=== PATIENT | male | born 1945 | race Caucasian/White ===

== ENCOUNTER 2017-05-17 00:44 | Emergency (ER) | payer MEDICARE, OTHER ==
[~2017-05-17] VITALS: Ht 193 cm; Wt 88.5 kg
[~2017-05-17 00:44] MED LIST: ASPIRIN81 MG PO; JANUMET 50-1,01 EACH PO; JANUMET 50-5001 EACH PO; METFORMIN HCL500 MG PO; VASOTEC10 MG PO
[2017-05-17] MEDS ORDERED: LIDOCAINE JELLY 2% 10ML URO-JET TOP ONE (01:00)
[2017-05-17 02:09] LABS: BILIRUBIN,URINE NEGATIVE (NEGATIVE); KETONES,URINE NEGATIVE (NEGATIVE); LEUKOCYTE ESTERASE ,URINE 2+ (NEGATIVE); PROTEIN,URINE DIPSTICK NEGATIVE (NEGATIVE); URINE UROBILINOGEN 0.2 mg/dL (0.2 - 1)
[2017-05-17 02:10] LABS: CLARITY,URINE CLOUDY (CLEAR); COLOR,URINE YELLOW (YELLOW); NITRITE,URINE POSITIVE (NEGATIVE)
[2017-05-17 02:19] LABS: BACTERIA,URINE MANY /HPF; EPITHELIAL CELLS,URINE RARE /LPF; WBC,URINE (MAN) 21-50 /HPF (0-5)
[2017-05-17] MEDS ORDERED: CEFTRIAXONE SOD 1 GM VIAL IM ONE (02:30)
[2017-05-17 03:25] VITALS: BP 154/65
== END 2017-05-17 03:26 | disposition home or self-care (01) ==
LOC: ER 00:44
DX: R33.9 Retention of urine, unspecified (principal); N30.91 Cystitis, unspecified with hematuria; N40.1 Benign prostatic hyperplasia with lower urinary tract symptoms; I10 Essential (primary) hypertension; E11.9 Type 2 diabetes mellitus without complications
CPT/HCPCS: 51702; 81001; 87086; 87186; 99284; J0696

== ENCOUNTER 2018-02-27 13:24 | Emergency (ER) | payer MEDICARE, OTHER ==
[~2018-02-27] VITALS: Ht 193 cm; Wt 92.5 kg
[2018-02-27] MEDS ORDERED: ONDANSETRON HCL INJ 2 MG/ML VIAL IV STA (13:44)
[2018-02-27] MEDS ORDERED: SODIUM CHLORIDE 0.9% 1000ML 1,000 ML IV SCH (13:45)
[2018-02-27 14:19] LABS: BASOPHILS # (AUTO) 0.1 (0.0-0.1); BASOPHILS % 0.6 % (0.0-1.0); EOSINOPHILS # (AUTO) 0.1 (0.0-0.4); EOSINOPHILS % 0.7 % (0.0-6.0); HEMATOCRIT 43.8 % (38.2-49.6); HEMOGLOBIN 15.7 g/dL (14.0-18.0); LYMPHOCYTES # (AUTO) 2.1 (1.0-3.2); LYMPHOCYTES % 24.7 % (18.0-39.1); MEAN CORPUSCULAR HEMOGLOBIN 33.5 pg (28-32); MEAN CORPUSCULAR HGB CONC 35.8 g/dL (31-35); MEAN CORPUSCULAR VOLUME 93.4 fL (81-99); MONOCYTES # (AUTO) 1.1 (0.2-0.8); MONOCYTES % 12.6 % (4.4-11.3); NEUTROPHILS # (AUTO) 5.2 (2.1-6.9); PLATELET COUNT 213 x10e3/uL (140-360); RED BLOOD COUNT 4.69 x10e6/uL (4.3-5.7); RED CELL DISTRIBUTION WIDTH 13.5 % (11.7-14.4)
[2018-02-27 14:43] LABS: ALANINE AMINOTRANSFERASE 36 IU/L (0-55); ALBUMIN 4.1 g/dL (3.5-5.0); ALBUMIN/GLOBULIN RATIO 1.2 (0.8-2.0); ALKALINE PHOSPHATASE 44 IU/L (40-150); ANION GAP 18.6 mmol/L (8-16); BLOOD UREA NITROGEN 14 mg/dL (7-26); BUN/CREATININE RATIO 12 (6-25); CARBON DIOXIDE 23 mmol/L (22-29); CHLORIDE 98 mmol/L (98-107); CREATINE KINASE 70 IU/L (30-200); CREATININE, SERUM 1.13 mg/dL (0.72-1.25); EST GLOMERULAR FILTRATION RATE > 60 ML/MIN (60-); GLUCOSE 143 mg/dL (74-118); POTASSIUM 3.6 mmol/L (3.5-5.1); SODIUM 136 mmol/L (136-145)
[2018-02-27 17:15] LABS: CLARITY,URINE SL CLOUDY (CLEAR); COLOR,URINE YELLOW (YELLOW)
[2018-02-27 17:16] LABS: BILIRUBIN,URINE NEGATIVE (NEGATIVE); KETONES,URINE NEGATIVE (NEGATIVE); LEUKOCYTE ESTERASE ,URINE TRACE (NEGATIVE); NITRITE,URINE POSITIVE (NEGATIVE); PROTEIN,URINE DIPSTICK NEGATIVE (NEGATIVE); URINE UROBILINOGEN 0.2 mg/dL (0.2 - 1)
[2018-02-27 17:18] LABS: BACTERIA,URINE MANY /HPF
[2018-02-27] MEDS ORDERED: CEFTRIAXONE SOD 1 GM VIAL IV SCH (17:45)
[2018-02-27 18:28] VITALS: BP 152/82
== END 2018-02-27 18:41 | disposition home or self-care (01) ==
LOC: ER 13:24
DX: R11.2 Nausea with vomiting, unspecified (principal); R19.7 Diarrhea, unspecified; K52.9 Noninfective gastroenteritis and colitis, unspecified; N39.0 Urinary tract infection, site not specified; I10 Essential (primary) hypertension; E11.9 Type 2 diabetes mellitus without complications; H81.09 Meniere's disease, unspecified ear
CPT/HCPCS: 36415; 80053; 81001; 82550; 82553; 84484; 85025; 87086; 87186; 99284; J0696; J2405; J7030

== ENCOUNTER 2018-03-06 03:12 | Emergency (ER) | payer MEDICARE, OTHER ==
[~2018-03-06] VITALS: Ht 193 cm; Wt 92.5 kg
== END 2018-03-06 04:44 | disposition home or self-care (01) ==
LOC: ER 03:12
DX: R33.9 Retention of urine, unspecified (principal); N40.1 Benign prostatic hyperplasia with lower urinary tract symptoms; I10 Essential (primary) hypertension; E11.9 Type 2 diabetes mellitus without complications; N18.9 Chronic kidney disease, unspecified
CPT/HCPCS: 99282

== ENCOUNTER 2018-05-08 07:41 | Emergency (ER) | payer MEDICARE, OTHER ==
[~2018-05-08] VITALS: Ht 193 cm; Wt 95.3 kg
--- NOTE | 2018-05-08 09:30 | NUR ---
SUPRAPUBIC JIMENEZ CATH 14 FR WITH 5CC BALLOON, BALLOON FILLED TO [address] JIMÉNEZ. PT TOLERATED WELL. UA SPECIMEN COLLECTED AND SENT TO LAB ORDERED.
[2018-05-08 10:00] LABS: BILIRUBIN,URINE NEGATIVE (NEGATIVE); CLARITY,URINE CLOUDY (CLEAR); COLOR,URINE YELLOW (YELLOW); KETONES,URINE NEGATIVE (NEGATIVE); LEUKOCYTE ESTERASE ,URINE TRACE (NEGATIVE); NITRITE,URINE POSITIVE (NEGATIVE); PROTEIN,URINE DIPSTICK NEGATIVE (NEGATIVE); URINE UROBILINOGEN 0.2 mg/dL (0.2 - 1)
[2018-05-08 10:14] LABS: AMORPHOUS SEDIMENT,URINE RARE (FEW); BACTERIA,URINE MODERATE /HPF; EPITHELIAL CELLS,URINE RARE /LPF
== END 2018-05-08 10:25 | disposition home or self-care (01) ==
LOC: ER 07:41
DX: Z46.6 Encounter for fitting and adjustment of urinary device (principal); N30.90 Cystitis, unspecified without hematuria; N18.9 Chronic kidney disease, unspecified; I10 Essential (primary) hypertension; E11.9 Type 2 diabetes mellitus without complications; H81.09 Meniere's disease, unspecified ear; H40.9 Unspecified glaucoma
CPT/HCPCS: 81001; 87086; 87186; 99283

== ENCOUNTER 2018-08-15 09:43 | Emergency (ER) | payer MEDICARE, OTHER ==
[~2018-08-15] VITALS: Ht 193 cm; Wt 95.3 kg
--- NOTE | 2018-08-15 11:04 | NUR ---
report to matteo flores
--- NOTE | 2018-08-15 11:20 | NUR ---
Pt's suprapubic site is cleaned and a gauze bandage is applied to the site and is secured with tape without incident.
== END 2018-08-15 11:33 | disposition home or self-care (01) ==
LOC: ER 09:43
DX: Z46.6 Encounter for fitting and adjustment of urinary device (principal); I10 Essential (primary) hypertension; E11.9 Type 2 diabetes mellitus without complications
CPT/HCPCS: 99283

== ENCOUNTER 2018-08-19 22:21 | Emergency (ER) | payer MEDICARE, OTHER ==
[~2018-08-19] VITALS: Ht 193 cm; Wt 95.3 kg
[2018-08-20] MEDS ORDERED: LIDOCAINE JELLY 2% 10ML URO-JET ONE (01:24)
[2018-08-20 06:11] VITALS: BP 157/69
== END 2018-08-20 03:00 | disposition home or self-care (01) ==
LOC: ER 22:21
DX: Z46.6 Encounter for fitting and adjustment of urinary device (principal); Z87.891 Personal history of nicotine dependence
CPT/HCPCS: 99282

== ENCOUNTER 2018-11-30 10:44 | Inpatient (IN) | payer MEDICARE, OTHER ==
[2018-11-24 12:47] LABS: BASOPHILS # (AUTO) 0.1 (0.0-0.1); BASOPHILS % 0.6 % (0.0-1.0); EOSINOPHILS # (AUTO) 0.1 (0.0-0.4); EOSINOPHILS % 1.2 % (0.0-6.0); HEMATOCRIT 39.8 % (38.2-49.6); HEMOGLOBIN 14.3 g/dL (14.0-18.0); LYMPHOCYTES # (AUTO) 2.9 (1.0-3.2); LYMPHOCYTES % 27.1 % (18.0-39.1); MEAN CORPUSCULAR HEMOGLOBIN 32.9 pg (28-32); MEAN CORPUSCULAR HGB CONC 35.9 g/dL (31-35); MEAN CORPUSCULAR VOLUME 91.7 fL (81-99); MONOCYTES # (AUTO) 1.1 (0.2-0.8); MONOCYTES % 10.5 % (4.4-11.3); NEUTROPHILS # (AUTO) 6.5 (2.1-6.9); PLATELET COUNT 211 x10e3/uL (140-360); RED BLOOD COUNT 4.34 x10e6/uL (4.3-5.7); RED CELL DISTRIBUTION WIDTH 13.2 % (11.7-14.4)
[2018-11-24 13:02] LABS: ANION GAP 14.7 mmol/L (8-16); CALCIUM 10.4 mg/dL (8.4-10.2); CREATININE, SERUM 1.48 mg/dL (0.72-1.25); POTASSIUM 4.7 mmol/L (3.5-5.1)
--- NOTE | 2018-11-24 13:43 | Diagnostic Imaging Report ---
EXAMINATION: CHEST 2 VIEWS INDICATION: Preoperative COMPARISON: Chest x-ray of 10/16/2016 FINDINGS: TUBES and LINES: None. LUNGS: The lung volumes are normal. No focal consolidation or pulmonary edema. PLEURA: No pleural effusion or pneumothorax. HEART AND MEDIASTINUM: The cardiomediastinal silhouette is normal in size and contour. BONES AND SOFT TISSUES: No acute fracture or dislocation. UPPER ABDOMEN: No free air under the diaphragm. IMPRESSION: No focal pneumonia or pulmonary edema. Signed by: Sherrell Dumont MD on 11/24/2018 1:39 PM
[~2018-11-30] VITALS: Ht 193 cm; Wt 95.3 kg
[~2018-11-30 10:44] MED LIST changes: +BENICAR20 MG PO; +DOCUSATE SODIU100 MG PO; +LATANOPROST2.5 ML OP; +METOPROLOL SUC100 MG PO; +OMEPRAZOLE40 MG PO; +OXYBUTYNIN CHLOR5 M1 PO; +SIMVASTATIN20 MG PO
[2018-11-30] MEDS ORDERED: PIPER-TAZ 3.375 GM 50 ML ONE (11:05)
[2018-11-30] MEDS ORDERED: VANCOMYCIN 1GM/NS 250 ML 250 ML ONE (11:05)
[2018-11-30] MEDS ORDERED: GENTAMICIN 80MG/NS 100 ML 200 ML IV ONE (11:05)
--- OUTSIDE RECORDS SUMMARY | 2018-11-30 11:21 | XMS REPORT | Clinical Summary ---
Author Author DEIDRE mon.ki [facility] [employer] [facility] Address Unknown Phone Unavailable Care Team Providers Care Outreach Clinician Name Role Phone Pcp, No PCP Unavailable Allergies Comments Active Allergy Reactions Severity Noted Date Sulfa (Sulfonamide Rash Low 11/17/2017 Antibiotics) Medications End Date Status Medication Sig Dispensed Refills Start Date Active SITagliptin-metFORMIN Take 1 tablet 0 (JANUMET) 50-1,000 mg per by mouth 2 tablet (two) times daily with breakfast and dinner. Active enalapril (VASOTEC) 10 MG Take 10 mg by 0 tablet mouth daily. Active aspirin 81 MG EC tablet Take 81 mg by 0 mouth daily. Active fluconazole (DIFLUCAN) Take 200 mg 0 200 MG tablet by mouth daily. Active cefUROXime (CEFTIN) 250 Take 250 mg 0 MG tablet by mouth 2 (two) times daily. 12/07/2017 traMADol (ULTRAM) 50 mg Take 1 tablet 20 tablet 0 tablet (50 mg total) 8 by mouth every 6 (six) hours as needed for Pain for up to 10 days. Max Daily Amount: 200 mg Active Problems Problem Noted Date Other specified causes of urethral stricture 11/27/2017 Urinary retention 11/27/2017 Urethral stricture 11/27/2017 Social History Date Tobacco Use Types Packs/Day Years Used Quit: 2004 Former Smoker Smokeless Tobacco: Never Used Alcohol Use Drinks/Week oz/Week Comments Yes rare Sex Assigned at Date Recorded Not on file Industry Job Start Date Occupation Not on file Not on file Not on file Travel End Travel History Travel Start No recent travel history available. Last Filed Vital Signs Not on file Plan of Treatment Not on file Results Not on fileafter 11/29/2017 Insurance Payer Benefit Subscriber ID Type Phone Address Plan / Group MEDICARE MEDICARE A xxxxxxxxxx Medicare B MCR SUPPLEMENT/INDIVIDUAL GENERIC xxxxxxxxxx [employer] MEDICARE SUPPLEMENT
--- OUTSIDE RECORDS SUMMARY | 2018-11-30 11:22 | XMS REPORT | Continuity of Care Document ---
Author Author [employer] Address Unknown Phone Unavailable Care Team Providers Care Conference Reservationist Name Role Phone [employer] Unavailable Unavailable Problems Problem Status Onset Date Classification Date Reported Comments Source DX: N99.114=POSTPROCEDURAL URETHRAL STRI Active 08/26/2017 [facility] Sepsis due to other specified staphylococcus 08/01/2017 10/30/2017 [facility] Urethral stricture, unspecified 07/26/2017 10/23/2017 [facility] FEVER, N/V Active 07/18/2017 [facility] ACUTE LOWER UTI Active 07/18/2017 [facility] UNK Active 06/24/2017 [facility] Benign prostatic hyperplasia with lower urinary tract symptoms 10/23/2017 [facility] Other obstructive and reflux uropathy 10/23/2017 [facility] Calculus in bladder 10/23/2017 [facility] Chronic prostatitis 10/23/2017 [facility] Essential hypertension 10/23/2017 [facility] Type 2 diabetes mellitus without complications 10/23/2017 [facility] Personal history of nicotine dependence 10/30/2017 [facility] use of aspirin 10/23/2017 [facility] Other nursing home drug therapy 10/23/2017 [facility] Urinary tract infection, site not specified 10/30/2017 [facility] Type 2 diabetes mellitus with diabetic chronic kidney disease 10/30/2017 [facility] Chronic kidney disease, stage 3 10/30/2017 [facility] Benign prostatic hyperplasia without lower urinary tract symptoms 10/30/2017 [facility] Anemia, unspecified 10/30/2017 [facility] Personal history of urinary calculi 10/30/2017 [facility] [employer]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 WASTE: F/P - Black; E - Municipal Trash Bin Inactive 08/29/2017 [facility] Miralax 17 gm, 1 pkt, Route: PO, Drug form: PWDR, ONCE, Dosing Weight 93.182, kg, Start date: 07/24/17 12:25:00 [employer], Stop date: 07/24/17 12:25:00 CSTNotes: Dissolve in 8 oz of water or juice. (Same as: Michelle ax) Inactive 07/24/2017 [facility] vancomycin 1.5 g/150 mL-NaCl 0.9% intravenous solution 1.5 gm, IV, Q12H, # 20 bag, 0 Refill(s) No Longer Active 07/23/2017 [facility] enoxaparin 40 mg/0.4 mL subcutaneous solution 40 mg=0.4 mL, SUB-Q, [id number], # 7 syr, 0 Refill(s) No Longer Active 07/23/2017 [facility] Docusate Sodium 100 MG Oral Capsule [Colace] 100 mg=1 cap, PO, BID, # 20 cap, 0 Refill(s), Pharmacy: [id number] Active 07/23/2017 [facility] Docusate Sodium 100 MG Oral Capsule [Colace] 100 mg, 1 cap, Route: PO, BID, Dosing Weight 93.182, kg, Start date: 07/22/17 17:00:00 [employer], Duration: 30 day, Stop date: 08/21/17 9:00:00 CDT Inactive 07/22/2017 [facility] Docusate Sodium 100 MG Oral Capsule [Colace] 100 mg, 1 cap, Route: PO, Drug form: CAP, BID, Dosing Weight 93.182, kg, Start date: 07/22/17 11:19:00 [employer], Duration: 30 day, Stop date: 08/21/17 9:00:00 CDTNotes: (Same as: Colace) (Do Not Crush) No Longer Active 07/22/2017 [facility] WAIT for vanco trough draw prior to next dose WAIT for vanco trough draw prior to next dose, reminder, Drug form: MISC, Route: MISC, ONCE, 07/21/17 20:30:00 [employer], Stop date: 07/21/17 20:30:00 [employer] Inactive 07/22/2017 [facility] Doxycycline 100 mg, 2 cap, Route: PO, Drug form: CAP, [id number], Dosing Weight 93.182, kg, Start date: 07/21/17 9:00:00 [employer], Duration: 14 day, Stop date: 08/03/17 21:00:00 CDTNotes: (Same as: Vibramycin) No milk/ant acids/iron. Take 1 hour before or 2 hours after dairy products Inactive 07/21/2017 [facility] Lovenox 40 mg, 0.4 mL, Route: SUB-Q, Drug form: INJ, [id number], Dosing Weight 93.182, kg, Start date: 07/20/17 11:00:00 [employer], Duration: 30 day, Stop date: 08/18/17 11:00:00 CDTNotes: (Same as: Lovenox) No Longer Active 07/20/2017 [facility] Finasteride 1mg po daily-Pt's own med Finasteride 1mg po daily-Pt's own med, 1 mg, Drug form: MISC, Route: PO, Daily, 07/20/17 9:00:00 [employer], Duration: 30 day, Stop date: 08/18/17 21:00:00 CDT No Longer Active 07/20/2017 [facility] Flomax 0.4 mg, 1 cap, Route: PO, Drug form: CAP, Daily, Dosing Weight 93.182, kg, Start date: 07/20/17 9:00:00 [employer], Duration: 30 day, Stop date: 08/18/17 9:00:00 CDTNotes: (Same As: Flomax) "Do Not Crush" No Longer Active 07/20/2017 [facility] Vancomycin 1,500 mg, Route: IVPB, [id number], Dosing Weight 93.182, kg, Start date: 07/20/17 9:00:00 [employer], Duration: 7 day, Stop date: 07/26/17 21:00:00 [employer], ABX Indication: BacteremiaNotes: TIME CRITICAL MEDICATION (Same As: Vancocin) Infusion rate 2001 mg: infuse over 2.5 hours For adult patients only: Round to nearest 250 mg per Medical Staff approval MEDICATION WASTE Product Size: 1000 mg Product Wasted: ___ mg No Longer Active 07/20/2017 [facility] Finasteride 1 mg, Route: PO, Drug form: TAB, Daily, Dosing Weight 93.182, kg, Start date: 07/20/17 9:00:00 [employer], Duration: 30 day, Stop date: 08/18/17 9:00:00 CDT No Longer Active 07/20/2017 [facility] enalapril 10 mg, 1 tab, Route: PO, Drug form: TAB, Daily, Dosing Weight 93.182, kg, Start date: 07/20/17 9:00:00 [employer], Duration: 30 day, Stop date: 08/18/17 9:00:00 CDTNotes: (Same as: Vasotec) No Longer Active 07/20/2017 [facility] Levsin SL 0.125 mg, Route: SL, Drug form: TAB, Q4H, Dosing Weight 93.182, kg, PRN Bladder Spasm, Priority: NOW, Start date: 07/19/17 22:34:00 [employer], Duration: 30 day, Stop date: 08/18/17 22:33:00 CDT Inactive 07/20/2017 [facility] enalapril 10 mg, 1 tab, Route: PO, Drug form: TAB, Bedtime, Dosing Weight 93.182, kg, Priority: NOW, Start date: 07/19/17 22:11:00 [employer], Duration: 30 day, Stop date: 08/18/17 21:00:00 CDTNotes: (Same as: Vasotec) No Longer Active 07/20/2017 [facility] latanoprost 1 drp, Route: BOTH EYES, QPM, Drug form: SOLN, Start date: 07/19/17 17:00:00 [employer], Duration: 30 day, Stop date: 08/17/17 21:00:00 CDTNotes: Keep refrigerated. (Same as:Xalatan) Opened bottle may be s tored at room temperature for 6 weeks No Longer Active 07/19/2017 [facility] Rocephin 1 gm, Route: IVP, Drug form: PDR/INJ, Q12H, Dosing Weight 93.182, kg, Start date: 07/19/17 16:00:00 [employer], Duration: 3 day, Stop date: 07/22/17 4:00:00 [employer], ABX Indication: Urinary Tract InfectionNotes: (Same As: Rocephin). Use with 100 mL NS and infuse over 30 min MEDICATION WASTE Product Size: 1000 mg Product Wasted: ___ mg No Longer Active 07/19/2017 [facility] Aspirin 81 mg, 1 tab, Route: PO, Drug form: [place], Daily, Dosing Weight 93.182, kg, Start date: 07/19/17 10:00:00 [employer], Duration: 30 day, Stop date: 08/18/17 9:00:00 CDTNotes: Take with food. No Longer Active 07/19/2017 [facility] Insulin Lispro 1 unit, 0.01 mL, Route: SUB-Q, Drug form: SOLN, TID-Before Meals, Dosing Weight 93.182, kg, PRN Blood Glucose Results, Start date: 07/19/17 9:53:00 [employer], Duration: 30 day, Stop date: 08/18/17 9:52:00 CDTNotes: (Same as: Humalog ) Roll in palms of hands gently; Do not shake `vigorously. "Single Patient Use Only " WASTE: F/P - Black; E - Municipal Trash Bin Stable for 28 days at room temperature. Expires in days from Date No Longer Active 07/19/2017 [facility] Glucagon 1 mg, Route: IM, Drug form: PDR/INJ, PRN, Dosing Weight 93.182, kg, PRN Blood Glucose Results, Start date: 07/19/17 9:53:00 [employer], Duration: 30 day, Stop date: 08/18/17 10:52:00 CDT No Longer Active 07/19/2017 [facility] Dextrose 50% Syringe 25 gm, 50 mL, Route: IVP, Drug Form: INJ, Dosing Weight 93.182, kg, PRN, PRN Blood Glucose Results, Start date: 07/19/17 9:53:00 [employer], Duration: 30 day, Stop date: 08/18/17 10:52:00 CDT No Longer Active 07/19/2017 [facility] Levsin SL 0.125 mg, 1 tab, Route: SL, Drug form: TAB, Q4H, Dosing Weight 93.182, kg, PRN Bladder Spasm, Start date: 07/19/17 9:52:00 [employer], Duration: 30 day, Stop date: 08/18/17 9:51:00 CDTNotes: (Same as: Levsin) Take 30 min before meal No Longer Active 07/19/2017 [facility] tramadol hydrochloride 50 MG Oral Tablet 50 mg, 1 tab, Route: PO, Drug form: TAB, Q4H, Dosing Weight 93.182, kg, PRN Pain Score 1-3, Start date: 07/19/17 5:16:00 [employer], Duration: 30 day, Stop date: 08/18/17 5:15:00 CDTNotes: Not to exceed 400mg/day. (Same As: Ultram) No Longer Active 07/19/2017 [facility] Aspirin 81 mg, PO, Daily, 0 Refill(s) Active 07/19/2017 [facility] Metformin hydrochloride 1000 MG / sitagliptin 50 MG Oral Tablet 1 tab, PO, BID-Meals, # 90 tab, 1 Refill(s) No Longer Active 07/19/2017 [facility] Ondansetron 4 mg, 2 mL, Route: IVP, Drug form: INJ, Q6H, Dosing Weight 93.182, kg, PRN Nausea & Vomiting, Start date: 07/19/17 3:34:00 [employer], Duration: 30 day, Stop date: 08/18/17 3:33:00 CDTNotes: (Same as: Zofran) MEDICATION WASTE Product Size: 4 mg Product Wasted: ___ mg No Longer Active 07/19/2017 [facility] Acetaminophen 325 MG / Hydrocodone Bitartrate 5 MG Oral Tablet 1 tab, Route: PO, Drug Form: TAB, Dosing Weight 93.182, kg, Q4H, PRN Pain Score 4-6, Start date: 07/19/17 3:34:00 [employer], Duration: 30 day, Stop date: 08/18/17 3:33:00 CDTNotes: (Same as: [place] 325/5) Do not exceed 4gm/day of acetaminophen. Inactive 07/19/2017 [facility] Lactated Ringers IV 1,000 mL 1,000 mL, Rate: 75 ml/hr, Infuse over: 13.3 hr, Route: IV, Dosing Weight 93.182 kg, Total Volume: 1,000, Start date: 07/19/17 3:34:00 [employer], Duration: 30 day, Stop date: 08/18/17 3:33:00 CDT, 2.24, m2 No Longer Active 07/19/2017 [facility] Saline Flush 0.9% 10 ml, Route: IVP, Drug Form: INJ, Dosing Weight 93.182, kg, PRN, PRN Line Flush, Start date: 07/19/17 3:34:00 [employer], Duration: 30 day, Stop date: 08/18/17 4:33:00 CDTNotes: (Same as: BD Posiflush) No Longer Active 07/19/2017 [facility] Rocephin 1 gm, Route: IVPB, Drug form: PDR/INJ, ONCE, Dosing Weight 93.182, kg, Priority: STAT, Start date: 07/19/17 2:23:00 [employer], Stop date: 07/19/17 2:23:00 [employer], ABX Indication: Urinary Tract Infection Inactive 07/19/2017 [facility] Saline Flush 0.9% 10 mL, Route: IVP, Drug Form: INJ, Dosing Weight 93.182, kg, PRN, PRN Line Flush, Start date: 07/18/17 21:33:00 [employer], Duration: 30 day, Stop date: 08/17/17 22:32:00 CDTNotes: (Same as: BD Posiflush) No Longer Active 07/19/2017 [facility] Oxycodone Hydrochloride 5 MG Oral Tablet 10 mg, Route: PO, Drug form: TAB, ONCE, Dosing Weight 93.182, kg, PRN Pain Score 7-10, Start date: 07/17/17 15:57:00 [employer] Inactive 07/17/2017 [facility] Fentanyl 25 microgram, Route: IVP, Q5Min, Dosing Weight 93.182, kg, PRN Pain Score 4-6, Priority: Routine, Start date: 07/17/17 15:20:00 [employer], Duration: 4 doses or times, Stop date: Limited # of times Inactive 07/17/2017 [facility] esmolol 10 mg, Route: IVP, Q5Min, Dosing Weight 93.182, kg, PRN Other -See Comment, Start date: 07/17/17 15:20:00 [employer], Duration: 5 doses or times, Stop date: Limited # of times Inactive 07/17/2017 [facility] Hydralazine 10 mg, Route: IVP, Q20Min, Dosing Weight 93.182, kg, PRN Elevated BP, Start date: 07/17/17 15:20:00 [employer], Duration: 2 doses or times, Stop date: Limited # of times Inactive 07/17/2017 [facility] Labetalol 10 mg, Route: IVP, Q5Min, Dosing Weight 93.182, kg, PRN Elevated BP, Start date: 07/17/17 15:20:00 [employer], Duration: 5 doses or times, Stop date: Limited # of times Inactive 07/17/2017 [facility] Meperidine 12.5 mg, Route: IVP, Q30Min, Dosing Weight 93.182, kg, PRN Other -See Comment, For shivering, Start date: 07/17/17 15:20:00 [employer], Duration: 2 doses or times, Stop date: Limited # of times Inactive 07/17/2017 [facility] Ondansetron 4 mg, Route: IVP, ONCE, Dosing Weight 93.182, kg, PRN Nausea & Vomiting, Start date: 07/17/17 15:20:00 [employer] Inactive 07/17/2017 [facility] Promethazine 6.25 mg, Route: IVPB, ONCE, Dosing Weight 93.182, kg, PRN Nausea & Vomiting, Start date: 07/17/17 15:20:00 [employer] Inactive 07/17/2017 [facility] Flumazenil 0.2 mg, Route: IVP, PRN, Dosing Weight 93.182, kg, PRN Benzodiazepine Reversal, Initial dose, Start date: 07/17/17 15:20:00 [employer], Duration: 30 day, Stop date: 08/16/17 16:19:00 CDT Inactive 07/17/2017 [facility] Naloxone 0.4 mg, Route: IVP, Q2MIN, Dosing Weight 93.182, kg, PRN Narcotic Reversal, Start date: 07/17/17 15:20:00 [employer], Duration: 8 doses or times, Stop date: Limited # of times Inactive 07/17/2017 [facility] Albuterol 0.83 MG/ML Inhalant Solution 2.49 mg, Route: NEB, Q20Min, Dosing Weight 93.182, kg, PRN Wheezing, Priority: STAT, Start date: 07/17/17 15:20:00 [employer], Duration: 30 day, Stop date: 08/16/17 16:19:00 CDT Inactive 07/17/2017 [facility] Diphenhydramine 12.5 mg, Route: IVP, Drug form: INJ, Q6H, Dosing Weight 93.182, kg, PRN Itching, Start date: 07/17/17 15:20:00 [employer], Duration: 30 day, Stop date: 08/16/17 15:19:00 CDT Inactive 07/17/2017 [facility] Calcium Chloride 0.0014 MEQ/ML / Potassium Chloride 0.004 MEQ/ML / Sodium Chloride 0.103 MEQ/ML / Sodium Lactate 0.028 MEQ/ML Injectable Solution 1,000 mL, Rate: 125 ml/hr, Infuse over: 8 hr, Route: IV, Dosing Weight 93.182 kg, Total Volume: 1,000, Start date: 07/17/17 15:20:00 [employer], Duration: 30 day, Stop date: 08/16/17 15:19:00 CDT, 2.24, m2 Inactive 07/17/2017 [facility] ondansetron (ANES) Route: IV, Drug form: INJ, ONCE, Stop date: 07/17/17 15:04:00 [employer] Inactive 07/17/2017 [facility] fentaNYL (ANES) Route: IV, Drug form: INJ, ONCE, Stop date: 07/17/17 14:38:00 [employer] Inactive 07/17/2017 [facility] lidocaine (ANES) Route: IV, Drug form: INJ, ONCE, Stop date: 07/17/17 14:38:00 [employer] Inactive 07/17/2017 [facility] propofol (ANES) Route: IV, Drug form: INJ, ONCE, Stop date: 07/17/17 14:38:00 [employer] Inactive 07/17/2017 [facility] ciprofloxacin (ANES) Route: IV, Drug form: INJ, ONCE, Stop date: 07/17/17 14:38:00 [employer] Inactive 07/17/2017 [facility] Lactated Ringers Injection IV (ANES) 1000 mL Route: IV, Total Volume: 1,000, Start date: 07/17/17 13:44:00 [employer], Stop date: 07/17/17 14:44:00 [employer] Inactive 07/17/2017 [facility] Hyoscyamine Sulfate 0.125 MG Sublingual Tablet [Levsin] 0.125 mg=1 tab, SL, Q4H, PRN Bladder Spasm, # 40 tab, 1 Refill(s) Active 07/17/2017 [facility] tramadol hydrochloride 50 MG Oral Tablet 50 mg=1 tab, PO, Q8H, PRN Pain, X 20 day, # 30 tab, 0 Refill(s) No Longer Active 07/17/2017 [facility] Ciprofloxacin 500 MG Oral Tablet [Cipro] 500 mg=1 tab, PO, Q12H, for UTI, X 3 day, # 6 tab, 0 Refill(s) No Longer Active 07/17/2017 [facility] Albuterol 0.833 MG/ML / Ipratropium [place] 0.167 MG/ML Inhalant Solution 3 mL, Route: NEB, Drug Form: SOLN, Dosing Weight 93.182, kg, ONCE, STAT, Start date: 07/17/17 9:20:00 [employer], Stop date: 07/17/17 9:20:00 CSTNotes: (Same as: Erikab) No Longer Active 07/17/2017 [facility] Calcium Chloride 0.0014 MEQ/ML / Potassium Chloride 0.004 MEQ/ML / Sodium Chloride 0.103 MEQ/ML / Sodium Lactate 0.028 MEQ/ML Injectable Solution 1,000 mL, Rate: 25 ml/hr, Infuse over: 40 hr, Route: IV, Dosing Weight 93.182 kg, Total Volume: 1,000, Start date: 07/17/17 9:20:00 [employer], Duration: 30 day, Stop date: 08/16/17 9:19:00 CDT, 2.24, m2 Inactive 07/17/2017 [facility] latanoprost 1 drp, QPM, 0 Refill(s) Active 07/09/2017 [facility] Aspirin 81 MG Enteric Coated Tablet 81 mg=1 tab, PO, Daily, last dose 07/09/17, # 90 tab, 3 Refill(s) No Longer Active 07/09/2017 [facility] finasteride 1 mg oral tablet 1 mg=1 tab, PO, Daily, # 30 tab, 0 Refill(s) Active 07/09/2017 [facility] Tamsulosin hydrochloride 0.4 MG Oral Capsule [Flomax] 0.4 mg=1 cap, PO, Daily, # 30 cap, 0 Refill(s) Active 07/09/2017 [facility] enalapril 10 mg oral tablet 10 mg=1 tab, PO, Daily, # 30 tab, 0 Refill(s) Active 07/09/2017 [facility] 24 HR Metformin hydrochloride 1000 MG / sitagliptin 100 MG Extended Release Tablet [Janumet 100/1000] 1 tab, PO, BID, # 30 tab, 0 Refill(s) Active 07/09/2017 [facility] Allergies, Adverse Reactions, Alerts Substance Category Reaction Severity Reaction type Status Date Reported Comments Source sulfa drugs Assertion Drug allergy Active [facility] Immunizations No Data Provided for This Section Results Order Name Results Value Reference Range Date Interpretation Comments Source TOXICOLOGY Vanco Tr TND 21:00 07/22/2017 [facility] TOXICOLOGY Vanco Tr 13.3 07/22/2017 [facility] ELECTROLYTES AGAP 13.3 10.0 - 20.0 07/21/2017 [facility] ELECTROLYTES Calcium Lvl 8.4 8.5 - 10.5 07/21/2017 [facility] ELECTROLYTES Potassium Lvl 4.3 3.5 - 5.1 07/21/2017 [facility] ELECTROLYTES Sodium Lvl 136 135 - 145 07/21/2017 [facility] ELECTROLYTES Creatinine Lvl 1.04 0.50 - 1.40 07/21/2017 [facility] ELECTROLYTES CO2 27 24 - 32 07/21/2017 [facility] ELECTROLYTES Chloride Lvl 100 95 - 109 07/21/2017 [facility] ELECTROLYTES eGFR 73 07/21/2017 Result Comment: The eGFR is calculated using the CKD-EPI formula. In most young, healthy individuals the eGFR will be >90 mL/min/1.73m2. The eGFR declines with age. An eGFR of 60-89 may be normal in some populations, particularly the elderly, for whom the CKD-EPI formula has not been extensively validated. Use of the eGFR is not recommended in the following populations:

Individuals with unstable creatinine concentrations, including patients and those with serious co-morbid conditions.

Patients with extremes in muscle mass or diet.

The data above are obtained from the National Kidney Disease Education Program (NKDEP) which additionally recommends that when the eGFR is used in patients with extremes of body mass index for purposes of drug dosing, the eGFR should be multiplied by the estimated BMI. [facility] ELECTROLYTES BUN 12 7 - 22 07/21/2017 [facility] ELECTROLYTES Glucose Lvl 151 70 - 99 07/21/2017 [facility] Platelet 176 133 - 450 07/21/2017 [facility] MPV 8.3 7.4 - 10.4 07/21/2017 [facility] MCHC 34.9 32.0 - 36.0 07/21/2017 [facility] MCH 32.7 27.0 - 31.0 07/21/2017 [facility] RDW 13.3 11.5 - 14.5 07/21/2017 [facility] Hct 37.7 42.0 - 54.0 07/21/2017 [facility] WBC 11.4 3.7 - 10.4 07/21/2017 [facility] Hgb 13.2 14.0 - 18.0 07/21/2017 [facility] MCV 93.6 80.0 - 94.0 07/21/2017 [facility] RBC 4.03 4.70 - 6.10 07/21/2017 [facility] Monocytes # 1.8 0.0 - 0.8 07/21/2017 [facility] Lymphocytes # 2.1 1.0 - 5.5 07/21/2017 [facility] Eosinophils # 0.2 0.0 - 0.5 07/21/2017 [facility] Basophils # 0.1 0.0 - 0.2 07/21/2017 [facility] Segs 63.9 45.0 - 75.0 07/21/2017 [facility] Monocytes 15.7 2.0 - 12.0 07/21/2017 [facility] Lymphocytes 18.6 20.0 - 40.0 07/21/2017 [facility] Eosinophils 1.3 0.0 - 4.0 07/21/2017 [facility] Basophils 0.5 0.0 - 1.0 07/21/2017 [facility] Segs-Bands # 7.3 1.5 - 8.1 07/21/2017 [facility] CHEM PANEL Lactic Acid Lvl 1.1 0.5 - 2.2 07/20/2017 [facility] CHEM PANEL eGFR 70 07/20/2017 Result Comment: The eGFR is calculated using the CKD-EPI formula. In most young, healthy individuals the eGFR will be >90 mL/min/1.73m2. The eGFR declines with age. An eGFR of 60-89 may be normal in some populations, particularly the elderly, for whom the CKD-EPI formula has not been extensively validated. Use of the eGFR is not recommended in the following populations:

Individuals with unstable creatinine concentrations, including patients and those with serious co-morbid conditions.

Patients with extremes in muscle mass or diet.

The data above are obtained from the National Kidney Disease Education Program (NKDEP) which additionally recommends that when the eGFR is used in patients with extremes of body mass index for purposes of drug dosing, the eGFR should be multiplied by the estimated BMI. [facility] CHEM PANEL Creatinine Lvl 1.08 0.50 - 1.40 07/20/2017 [facility] CHEM PANEL Sodium Lvl 135 135 - 145 07/20/2017 [facility] CHEM PANEL Potassium Lvl 4.2 3.5 - 5.1 07/20/2017 [facility] CHEM PANEL BUN 10 7 - 22 07/20/2017 [facility] CHEM PANEL Glucose Lvl 154 70 - 99 07/20/2017 [facility] CHEM PANEL Calcium Lvl 8.6 8.5 - 10.5 07/20/2017 [facility] CHEM PANEL CO2 25 24 - 32 07/20/2017 [facility] CHEM PANEL Chloride Lvl 100 95 - 109 07/20/2017 [facility] CHEM PANEL AGAP 14.2 10.0 - 20.0 07/20/2017 [facility] HEMATOLOGY Eosinophils 0.6 0.0 - 4.0 07/20/2017 [facility] HEMATOLOGY Monocytes 14.0 2.0 - 12.0 07/20/2017 [facility] HEMATOLOGY Lymphocytes 14.2 20.0 - 40.0 07/20/2017 [facility] HEMATOLOGY Monocytes # 1.8 0.0 - 0.8 07/20/2017 [facility] HEMATOLOGY Eosinophils # 0.1 0.0 - 0.5 07/20/2017 [facility] HEMATOLOGY Segs 70.9 45.0 - 75.0 07/20/2017 [facility] Lymphocytes # 1.8 1.0 - 5.5 07/20/2017 [facility] Segs-Bands # 9.1 1.5 - 8.1 07/20/2017 [facility] HEMATOLOGY Basophils 0.3 0.0 - 1.0 07/20/2017 [facility] MCHC 35.0 32.0 - 36.0 07/20/2017 [facility] MCH 32.9 27.0 - 31.0 07/20/2017 [facility] HEMATOLOGY RDW 13.9 11.5 - 14.5 07/20/2017 [facility] MCV 94.1 80.0 - 94.0 07/20/2017 [facility] WBC 12.8 3.7 - 10.4 07/20/2017 [facility] Hgb 13.6 14.0 - 18.0 07/20/2017 [facility] RBC 4.12 4.70 - 6.10 07/20/2017 [facility] MPV 8.4 7.4 - 10.4 07/20/2017 [facility] Platelet 161 133 - 450 07/20/2017 [facility] Hct 38.8 42.0 - 54.0 07/20/2017 [facility] CHEM PANEL eGFR 58 07/19/2017 Result Comment: The eGFR is calculated using the CKD-EPI formula. In most young, healthy individuals the eGFR will be >90 mL/min/1.73m2. The eGFR declines with age. An eGFR of 60-89 may be normal in some populations, particularly the elderly, for whom the CKD-EPI formula has not been extensively validated. Use of the eGFR is not recommended in the following populations:

Individuals with unstable creatinine concentrations, including patients and those with serious co-morbid conditions.

Patients with extremes in muscle mass or diet.

The data above are obtained from the National Kidney Disease Education Program (NKDEP) which additionally recommends that when the eGFR is used in patients with extremes of body mass index for purposes of drug dosing, the eGFR should be multiplied by the estimated BMI. [facility] CHEM PANEL Calcium Lvl 8.6 8.5 - 10.5 07/19/2017 [facility] CHEM PANEL CO2 24 24 - 32 07/19/2017 [facility] CHEM PANEL Chloride Lvl 97 95 - 109 07/19/2017 [facility] CHEM PANEL Potassium Lvl 3.7 3.5 - 5.1 07/19/2017 [facility] CHEM PANEL Sodium Lvl 133 135 - 145 07/19/2017 [facility] CHEM PANEL BUN 13 7 - 22 07/19/2017 [facility] CHEM PANEL Glucose Lvl 193 70 - 99 07/19/2017 [facility] CHEM PANEL Creatinine Lvl 1.26 0.50 - 1.40 07/19/2017 [facility] CHEM PANEL AGAP 15.7 10.0 - 20.0 07/19/2017 [facility] Platelet 160 133 - 450 07/19/2017 [facility] MPV 7.9 7.4 - 10.4 07/19/2017 [facility] RDW 13.3 11.5 - 14.5 07/19/2017 [facility] WBC 13.6 3.7 - 10.4 07/19/2017 [facility] MCV 93.0 80.0 - 94.0 07/19/2017 [facility] MCHC 35.1 32.0 - 36.0 07/19/2017 [facility] RBC 4.06 4.70 - 6.10 07/19/2017 [facility] Hgb 13.2 14.0 - 18.0 07/19/2017 [facility] Hct 37.7 42.0 - 54.0 07/19/2017 [facility] MCH 32.7 27.0 - 31.0 07/19/2017 [facility] Eosinophils 0.5 0.0 - 4.0 07/19/2017 [facility] Basophils 0.5 0.0 - 1.0 07/19/2017 [facility] Segs 75.6 45.0 - 75.0 07/19/2017 [facility] Lymphocytes 9.4 20.0 - 40.0 07/19/2017 [facility] Monocytes 14.0 2.0 - 12.0 07/19/2017 [facility] Eosinophils # 0.1 0.0 - 0.5 07/19/2017 [facility] Basophils # 0.1 0.0 - 0.2 07/19/2017 [facility] Segs-Bands # 10.3 1.5 - 8.1 07/19/2017 [facility] Lymphocytes # 1.3 1.0 - 5.5 07/19/2017 [facility] Monocytes # 1.9 0.0 - 0.8 07/19/2017 [facility] CHEM PANEL Lactic Acid Lvl 2.1 0.5 - 2.2 07/19/2017 [facility] URINE AND STOOL UA Urobilinogen <=1.0 mg/dL 0.1 - 1.0 07/19/2017 [facility] URINE AND STOOL UA Protein 100 mg/dL Negative mg/dL 07/19/2017 [facility] URINE AND STOOL UA pH 5.0 5.0 - 8.0 07/19/2017 [facility] URINE AND STOOL UA Turbidity Marked *ABN* (07/18/17 9:57 PM) Clear 07/19/2017 [facility] URINE AND STOOL UA Spec Grav 1.013 <=1.030 07/19/2017 [facility] URINE AND STOOL UA Bacteria Few /HPF None Seen /HPF 07/19/2017 [facility] URINE AND STOOL UA Mucus Few /LPF None Seen /LPF 07/19/2017 [facility] URINE AND STOOL UA RBC 163 0 - 2 07/19/2017 [facility] URINE AND STOOL UA Sq Epi Occasional /LPF Few /LPF 07/19/2017 [facility] URINE AND STOOL UA WBC 151 0 - 5 07/19/2017 [facility] URINE AND STOOL UA Bili Negative *NA* (07/18/17 9:57 PM) Negative 07/19/2017 [facility] URINE AND STOOL UA Ketones Trace mg/dL Negative mg/dL 07/19/2017 [facility] URINE AND STOOL UA Color Yellow *NA* (07/18/17 9:57 PM) Yellow 07/19/2017 [facility] URINE AND STOOL UA Blood Large *ABN* (07/18/17 9:57 PM) Negative 07/19/2017 [facility] URINE AND STOOL UA Nitrite Negative (07/18/17 9:57 PM) Negative 07/19/2017 [facility] URINE AND STOOL UA Leuk Est Large *ABN* (07/18/17 9:57 PM) Negative 07/19/2017 [facility] URINE AND STOOL UA Glucose 500 mg/dL Negative mg/dL 07/19/2017 [facility] CARDIAC ENZYMES Total CK 102 12 - 191 07/19/2017 [facility] CARDIAC ENZYMES Troponin-I <0.02 0.00 - 0.40 07/19/2017 [facility] CHEM PANEL Total Protein 7.4 6.4 - 8.4 07/19/2017 [facility] CHEM PANEL Albumin Lvl 3.9 3.5 - 5.0 07/19/2017 [facility] CHEM PANEL Alk Phos 49 39 - 136 07/19/2017 [facility] CHEM PANEL Bili Total 1.2 0.2 - 1.3 07/19/2017 [facility] CHEM PANEL ALT 28 0 - 65 07/19/2017 [facility] CHEM PANEL AST 15 0 - 37 07/19/2017 [facility] CHEM PANEL B/C Ratio 10 6 - 25 07/19/2017 [facility] CHEM PANEL A/G Ratio 1.1 0.7 - 1.6 07/19/2017 [facility] CHEM PANEL Globulin 3.5 2.7 - 4.2 07/19/2017 [facility] CHEM PANEL Lactic Acid Lvl 3.9 0.5 - 2.2 07/19/2017 [facility] CHEM PANEL Procalcitonin Lvl 0.14 0.00 - 0.10 07/19/2017 [facility] HEMATOLOGY INR 1.22 0.85 - 1.17 07/19/2017 [facility] HEMATOLOGY PT 15.5 12.0 - 14.7 07/19/2017 [facility] HEMATOLOGY PTT 32.1 22.9 - 35.8 07/19/2017 [facility] [place] Vancomycin Resistance Not Detected (07/18/17 9:54 PM) Not Detected 07/19/2017 [facility] S. anginosus grp Not Detected (07/18/17 9:54 PM) Not Detected 07/19/2017 [facility] DIAGNOSTIC S. lugdunensis Not Detected (07/18/17 9:54 PM) Not Detected 07/19/2017 [facility] DIAGNOSTIC E. faecalis Not Detected (07/18/17 9:54 PM) Not Detected 07/19/2017 [facility] DIAGNOSTIC S. pneumoniae Not Detected (07/18/17 9:54 PM) Not Detected 07/19/2017 [facility] S. agalactiae Not Detected (07/18/17 9:54 PM) Not Detected 07/19/2017 [facility] S. epidermidis Detected *ABN* (07/18/17 9:54 PM) Not Detected 07/19/2017 [facility] DIAGNOSTIC mecA Methicillin Resistance Not Detected (07/18/17 9:54 PM) Not Detected 07/19/2017 [facility] DIAGNOSTIC Listeria spp. Not Detected (07/18/17 9:54 PM) Not Detected 07/19/2017 [facility] DIAGNOSTIC E. faecium Not Detected (07/18/17 9:54 PM) Not Detected 07/19/2017 [facility] DIAGNOSTIC vanB Vancomycin Resistance Not Detected (07/18/17 9:54 PM) Not Detected 07/19/2017 [facility] DIAGNOSTIC S. pyogenes Not Detected (07/18/17 9:54 PM) Not Detected 07/19/2017 [facility] MOLECULAR DIAGNOSTIC Streptococcus spp. Not Detected (07/18/17 9:54 PM) Not Detected 07/19/2017 [facility] DIAGNOSTIC Staphylococcus spp. Detected *ABN* (07/18/17 9:54 PM) Not Detected 07/19/2017 [facility] MOLECULAR DIAGNOSTIC S. aureus Not Detected (07/18/17 9:54 PM) Not Detected 07/19/2017 [facility] ELECTROLYTES AGAP 12.1 10.0 - 20.0 07/09/2017 [facility] ELECTROLYTES eGFR 50 07/09/2017 Result Comment: The eGFR is calculated using the CKD-EPI formula. In most young, healthy individuals the eGFR will be >90 mL/min/1.73m2. The eGFR declines with age. An eGFR of 60-89 may be normal in some populations, particularly the elderly, for whom the CKD-EPI formula has not been extensively validated. Use of the eGFR is not recommended in the following populations:

Individuals with unstable creatinine concentrations, including patients and those with serious co-morbid conditions.

Patients with extremes in muscle mass or diet.

The data above are obtained from the National Kidney Disease Education Program (NKDEP) which additionally recommends that when the eGFR is used in patients with extremes of body mass index for purposes of drug dosing, the eGFR should be multiplied by the estimated BMI. [facility] ELECTROLYTES CO2 25 24 - 32 07/09/2017 [facility] ELECTROLYTES Calcium Lvl 9.4 8.5 - 10.5 07/09/2017 [facility] ELECTROLYTES BUN 17 7 - 22 07/09/2017 [facility] ELECTROLYTES Sodium Lvl 135 135 - 145 07/09/2017 [facility] ELECTROLYTES Creatinine Lvl 1.42 0.50 - 1.40 07/09/2017 [facility] ELECTROLYTES Glucose Lvl 205 70 - 99 07/09/2017 [facility] ELECTROLYTES Potassium Lvl 4.1 3.5 - 5.1 07/09/2017 [facility] ELECTROLYTES Chloride Lvl 102 95 - 109 07/09/2017 [facility] HEMATOLOGY Monocytes # 1.0 0.0 - 0.8 07/09/2017 [facility] HEMATOLOGY Lymphocytes # 1.8 1.0 - 5.5 07/09/2017 [facility] HEMATOLOGY Eosinophils 0.7 0.0 - 4.0 07/09/2017 [facility] HEMATOLOGY Basophils 0.2 0.0 - 1.0 07/09/2017 [facility] HEMATOLOGY Segs-Bands # 7.4 1.5 - 8.1 07/09/2017 [facility] HEMATOLOGY Eosinophils # 0.1 0.0 - 0.5 07/09/2017 [facility] HEMATOLOGY Segs 72.0 45.0 - 75.0 07/09/2017 [facility] HEMATOLOGY Monocytes 9.8 2.0 - 12.0 07/09/2017 [facility] HEMATOLOGY Lymphocytes 17.3 20.0 - 40.0 07/09/2017 [facility] HEMATOLOGY PTT 30.1 22.9 - 35.8 07/09/2017 [facility] PT 12.4 12.0 - 14.7 07/09/2017 [facility] INR 0.92 0.85 - 1.17 07/09/2017 [facility] MCH 32.9 27.0 - 31.0 07/09/2017 [facility] RDW 13.9 11.5 - 14.5 07/09/2017 [facility] Platelet 239 133 - 450 07/09/2017 [facility] MCHC 34.9 32.0 - 36.0 07/09/2017 [facility] MPV 8.7 7.4 - 10.4 07/09/2017 [facility] Hct 47.1 42.0 - 54.0 07/09/2017 [facility] MCV 94.1 80.0 - 94.0 07/09/2017 [facility] Hgb 16.4 14.0 - 18.0 07/09/2017 [facility] WBC 10.2 3.7 - 10.4 07/09/2017 [facility] RBC 5.00 4.70 - 6.10 07/09/2017 [facility] URINE AND STOOL UA Nitrite Negative (07/09/17 4:22 PM) Negative 07/09/2017 [facility] URINE AND STOOL UA Color Ltyellow 07/09/2017 [facility] URINE AND STOOL UA Urobilinogen <=1.0 mg/dL 0.1 - 1.0 07/09/2017 [facility] URINE AND STOOL UA WBC 3 0 - 5 07/09/2017 [facility] URINE AND STOOL UA RBC 3 0 - 2 07/09/2017 [facility] URINE AND STOOL UA Sq Epi Occasional /LPF Few /LPF 07/09/2017 [facility] URINE AND STOOL UA Leuk Est Trace *ABN* (07/09/17 4:22 PM) Negative 07/09/2017 [facility] URINE AND STOOL UA Protein Negative mg/dL Negative mg/dL 07/09/2017 [facility] URINE AND STOOL UA Glucose 500 mg/dL Negative mg/dL 07/09/2017 [facility] URINE AND STOOL UA Bili Negative *NA* (07/09/17 4:22 PM) Negative 07/09/2017 [facility] URINE AND STOOL UA Blood Small *ABN* (07/09/17 4:22 PM) Negative 07/09/2017 [facility] URINE AND STOOL UA pH 5.0 5.0 - 8.0 07/09/2017 [facility] URINE AND STOOL UA Turbidity Clear (07/09/17 4:22 PM) Clear 07/09/2017 [facility] URINE AND STOOL UA Spec Grav 1.010 <=1.030 07/09/2017 [facility] URINE AND STOOL UA Ketones Negative mg/dL Negative mg/dL 07/09/2017 [facility] Pathology Reports No Data Provided for This Section Diagnostic Reports Report Value Date Source Urethrogram retrograde DX Patient Name: JUVENCIO ZHOU : 1945; Age: 71 years Male MR: [id number] Study: Urethrogram retrograde DX 08/29/2017 9:59 AM CDT Clinical Indication: - N99.114 Postprocedural urethral stricture, male, unspecified. Total DLP: 93 mGy, 1,642.6 uGym2. IV contrast: 10 cc Omnipaque 300 Fluoroscopy time: 2 minutes 5 seconds COMPARISON: None TECHNIQUE: The patient arrived in the radiology suite with a Cavazos catheter in place. Small caliber Cavazos catheter was inserted into the tip of the penis at which point the balloon was slightly inflated. The patient was asked to pinch the tip of the penis around the 2 catheters. Contrast was hand injected via a syringe. FINDINGS: There is slight dilation of the distal urethra/sec to the level of the mid urethra. There is a slightly lobulated contour of the distal urethral border. At this point contrast progressed along the lateral aspects of the Cavazos catheter into the bladder. There is no evidence of contrast extravasation. No filling defects are identified. IMPRESSION: 1. No evidence of contrast extravasation with passage of contrast into the bladder. 2. Slight dilation and contour lobulation of the mid to distal urethra. SL: [id number] 08/29/2017 [facility] Chest 1 v for Placement DX XR CHEST 1 VIEW HISTORY: Line Placement - Chest 1 view for line placement. COMPARISON: None. FINDINGS: The right lung is clear. Linear scar or atelectasis noted within the left base. The heart and vascular markings are normal. No pleural abnormality. The bones are intact. PICC line on the right, tip located over the SVC. IMPRESSION: 1. Right upper extremity PICC line positioned over the lower 3rd of the SVC. 2. Linear scar or atelectasis within the left base.. SL: [id number] 07/22/2017 [facility] Chest 1view DX Clinical Indication: Undifferentiated Sepsis Comparison: None FINDINGS: The frontal chest radiograph shows normal lung volumes without interstitial or airspace opacities, pleural effusions or pneumothorax. The cardiomediastinal contours are normal for the age of the patient with aortic tortuosity. There are degenerative changes in the spine and shoulders. IMPRESSION: No chest radiographic evidence of acute cardiopulmonary disease. SL: [id number] 07/18/2017 [facility] Consultation Notes No Data Provided for This Section Discharge Summaries No Data Provided for This Section History and Physicals No Data Provided for This Section Vital Signs Vital Sign Value Date Comments Source Systolic (mm Hg) 120 07/24/2017 [facility] Diastolic (mm Hg) 71 07/24/2017 [facility] Temperature Oral (F) 97.9 F 07/24/2017 [facility] Respitory Rate 18 07/24/2017 [facility] Heart Rate 99 07/24/2017 [facility] Heart Rate 81 07/24/2017 [facility] Systolic (mm Hg) 121 07/24/2017 [facility] Diastolic (mm Hg) 71 07/24/2017 [facility] Temperature Oral (F) 98.2 F 07/24/2017 [facility] Systolic (mm Hg) 116 07/24/2017 [facility] Diastolic (mm Hg) 70 07/24/2017 [facility] Temperature Oral (F) 98.2 F 07/24/2017 [facility] Heart Rate 74 07/24/2017 [facility] Respitory Rate 16 07/24/2017 [facility] Respitory Rate 16 07/24/2017 [facility] Height 193.04 cm 07/19/2017 [facility] Height 193.04 cm 07/19/2017 [facility] BMI Calculated 25.01 07/19/2017 [facility] Weight 93.182 07/19/2017 [facility] Systolic (mm Hg) 157 07/17/2017 [facility] Diastolic (mm Hg) 77 07/17/2017 [facility] Respitory Rate 16 07/17/2017 [facility] Systolic (mm Hg) 141 07/17/2017 [facility] Diastolic (mm Hg) 96 07/17/2017 [facility] Respitory Rate 14 07/17/2017 [facility] Systolic (mm Hg) 139 07/17/2017 [facility] Diastolic (mm Hg) 87 07/17/2017 [facility] Respitory Rate 13 07/17/2017 [facility] Heart Rate 94 07/17/2017 [facility] Temperature Oral (F) 98.1 F 07/09/2017 [facility] Heart Rate 109 07/09/2017 [facility] Weight 93.182 07/09/2017 [facility] BMI Calculated 25.01 07/09/2017 [facility] Height 193.04 cm 07/09/2017 [facility] Encounters Location Location Details Encounter Type Encounter Number Reason For Visit Attending Provider ADM Date DC Date Status Source [facility] Day Surgery [id number] [facility] 07/17/2017 07/17/2017 [facility] Inpatient [id number] [place] Bradley 07/19/2017 07/24/2017 [facility] Outpatient [id number] [facility] 08/29/2017 08/30/2017 [facility] Procedures Procedure Code Date Perfomer Comments Source Achilles tendon repair [id number] [facility] Cataract extraction, insertion of intraocular lens and trabeculectomy [id number] [facility] Assessment and Plan Assessment and Plan Date Source Extracted from:Title: Clinical Document Author: Gallo Kan MD Date: 07/23/17 INFECTIOUS DISEASES PROGRESS NOTE GALLO KAN M.D. REASON FOR ID FOLLOW UP: ASSESMENT: This is a 67-year-old male presenting with Coagulase-negative staph bacteremia Fever Leukocytosis Anemia BPH Status post TURP PLAN: await DC At this point patient with a high-grade cordless negative staph bacteremia would require IV antibiotic vancomycin 10-14 days PICC line placement repeat cultures if negative home on IV vancomycin to complete the course case is discussed with patient is agreeable for treatment plan will follow in outpatient clinic to make further recommendations thanks for involving us the care ANTIBIOTICS: vanco day 08/30 ID follow up on discharge call Dr Kan [phone] SUBJECTIVE: Seen and examined. Events noted. VITAL SIGNS: Vitals and Temp: Vitals Tmp(F) Pulse BP RR SpO2 FIO2 07/22 08:15 97.6 77 127/79 16 97 --- 07/22 04:36 98.2 79 119/72 16 98 --- 07/22 00:29 98.5 83 136/78 16 97 --- 03 19:45 98.3 88 122/81 16 98 --- 03 16:42 98.2 89 127/76 16 96 --- 24 Hr Tmax: 98.5F (36.94c) at 07/22 00:29 Vital Signs are the last 5 in the past 48 hours. ROS: otherwise unremarkable PHYSICAL EXAMINATION: Awake lying on bed NAD No thrush CTAB RRR S1&S2 BS+ve NT/ND No edema No Rash No focal defecit IVs ok LABORATORY DATA: Labs (Last four charted values) WBC H 11.4 (JUL 21) H 12.8 (JUL 20) H 13.6 (JUL 19) H 14.7 (JUL 18) Hgb L 13.2 (JUL 21) L 13.6 (JUL 20) L 13.2 (JUL 19) 14.5 (JUL 18) Hct L 37.7 (JUL 21) L 38.8 (JUL 20) L 37.7 (JUL 19) L 41.7 (JUL 18) Plt 176 (JUL 21) 161 (JUL 20) 160 (JUL 19) 168 (JUL 18) Na 136 (JUL 21) 135 (JUL 20) L 133 (JUL 19) L 132 (JUL 18) K 4.3 (JUL 21) 4.2 (JUL 20) 3.7 (JUL 19) 3.8 (JUL 18) CO2 27 (JUL 21) 25 (JUL 20) 24 (JUL 19) 24 (JUL 18) Cl 100 (JUL 21) 100 (JUL 20) 97 (JUL 19) 97 (JUL 18) Cr 1.04 (JUL 21) 1.08 (JUL 20) 1.26 (JUL 19) H 1.42 (JUL 18) BUN 12 (JUL 21) 10 (JUL 20) 13 (JUL 19) 14 (JUL 18) Glucose Random H 151 (JUL 21) H 154 (JUL 20) H 193 (JUL 19) H 204 (JUL 18) Ca L 8.4 (JUL 21) 8.6 (JUL 20) 8.6 (JUL 19) 9.0 (JUL 18) PT H 15.5 (JUL 18) INR H 1.22 (JUL 18) PTT 32.1 (JUL 18) Troponin <0.02 (JUL 18) Total CK 102 (JUL 18) CULTURES: DATE/SOURCE/RESULT/ SENSITIVITIES coag negative staph MRSE IMAGING: Scheduled Meds (7): 07/22/17 docusate (Colace 100 mg oral capsule) 100 mg PO BID 07/19/17 enalapril 10 mg PO Bedtime 07/20/17 enoxaparin (Lovenox) 40 mg SUB-Q [id number] 07/19/17 latanoprost ophthalmic 1 drp BOTH EYES QPM 07/20/17 non-formulary (Finasteride 1mg po daily-Pt's own med) 1 mg PO Daily 07/20/17 tamsulosin (Flomax) 0.4 mg PO Daily 07/20/17 vancomycin + Sodium Chloride 0.9% IV 250 mL 1,500 mg IVPB [id number] 166.67 ml/hr Extracted from:Title: Clinical Document Author: Gallo Kan MD Date: 07/21/17 [facility] INFECTIOUS DISEASE CONSULTATION NOTE GALLO KAN M.D. REQUESTING PHYSICIAN: Dr Bradley REASON FOR CONSULTATION: Coagulase-negative staph bacteremia CHIEF COMPLAINT: Status post TURP this is a 71-year-old male with a past medical history significant for BPH Mnire's disease who was HISTORY OF PRESENT ILLNESS: Status post transurethral resection of prostate cystoscopy litholapaxy and urethral dilatation on 07/17 2018 by urology and was sent home on oral antibiotic only to come back with complaint of fever and chills initial workup was consistent with cordless negative staph bacteremia patient was started on IV Rocephin and then vancomycin was added and we have been asked to see him for further management of antibiotic therapy currently on vancomycin Rocephin and doxycycline we have been asked to decide about length of antibiotic treatment in route. No complaint at this point tolerating antibiotic without any complaint. Reviewed PMH No qualifying data available PSH Achilles tendon repair Cataract extraction, insertion of intraocular lens and trabeculectomy SH Alcohol Details: Current, Last use: 4 times a year. Tobacco Details: Use: Former smoker. Tobacco smoke exposure: None. Did the Patient Smoke Cigarettes Anytime During the Last 365 Days? No. Cessation Counseling Provided? No. FH Father: Prediabetes.. Brother: Kidney stone..; Type 2 diabetes mellitus Grandparent: Type 2 diabetes mellitus ALLERGIES: Allergies (1) Active Reaction sulfa drugs None documented REVIEW OF SYSTEMS: CONSTITUTIONAL: Denies fever, chills, or night sweats. EYES: Denies blurry vision or eye pain. ENT: Denies ear pain, nasal drainage, or sore throat. RESPIRATORY: Denies shortness of breath or cough. CARDIOVASCULAR: Denies chest pain or palpitations. GASTROINTESTINAL: Denied nausea, vomiting, diarrhea, or abdominal pain. GENITOURINARY: Denies dysuria, frequency, or urgency. MUSCULOSKELETAL: No joint pain, muscle aches, or swelling. NEUROLOGIC: Denies any focal weakness or headaches. SKIN: No rashes or lesions. ENDOCRINE: Denies history of polyuria, polydipsia, heat or cold intolerance. HEME/LYMPH: Denies bleeding, bruising, or swollen glands. PSYCH: No depression or anxiety PHYSICAL EXAMINATION: Vitals Tmp(F) Pulse BP RR SpO2 FIO2 07/21 11:47 98.0 79 127/77 16 95 --- 07/21 07:42 97.8 72 107/67 16 98 --- 07/21 04:46 98.5 84 133/75 16 94 --- 07/21 00:19 98.3 84 115/69 16 96 --- 07/20 19:26 100.4 86 115/70 16 95 --- 24 Hr Tmax: 100.4F (38.00c) at 07/20 19:26 Vital Signs are the last 5 in the past 48 hours. Awake lying on bed NAD No thrush CTAB RRR S1&S2 BS+ve NT/ND No edema No Rash No focal defecit IVs ok MEDICATIONS: Scheduled Meds (9):(Suspended) aspirin, cefTRIAXone + sterile water 10 mL (Rocephin + sterile water 10 mL), doxycycline, enalapril, enoxaparin (Lovenox), latanoprost ophthalmic, non-formulary (Finasteride 1mg po daily-Pt's own med), tamsulosin (Flomax), vancomycin + Sodium Chloride 0.9% IV 250 mL Unscheduled Meds: None PRN Meds (16):Dextrose 50% in Water IV (Dextrose 50% Syringe), Dextrose 50% in Water IV (Dextrose 50% Syringe), glucagon, hyoscyamine (Levsin SL), insulin lispro, insulin lispro, insulin lispro, insulin lispro, insulin lispro, insulin lispro, insulin lispro, insulin lispro, insulin lispro, ondansetron, sodium chloride (Saline Flush 0.9%), tramadol (tramadol 50 mg oral tablet) One Time Meds: None Continuous Infusions (1):Lactated Ringers Injection IV 1,000 mL (Lactated Ringers IV 1,000 mL) LABORATORY: AGAP: 13.3 mEq/L (07/21/17 07:08:34) Chloride Lvl: 100 mEq/L (07/21/17 07:08:34) CO2: 27 mEq/L (07/21/17 07:08:34) Potassium Lvl: 4.3 mEq/L (07/21/17 07:08:34) Sodium Lvl: 136 mEq/L (07/21/17 07:08:34) A/G Ratio: 1.1 (07/18/17 22:38:33) Albumin Lvl: 3.9 g/dL (07/18/17 22:38:33) Alk Phos: 49 unit/L (07/18/17 22:38:33) ALT: 28 unit/L (07/18/17 22:38:33) AST: 15 unit/L (07/18/17 22:38:33) B/C Ratio: 10 (07/18/17 22:38:33) Bili Total: 1.2 mg/dL (07/18/17 22:38:33) BUN: 12 mg/dL (07/21/17 07:08:34) Calcium Lvl: 8.4 mg/dL Low (07/21/17 07:08:34) Creatinine Lvl: 1.04 mg/dL (07/21/17 07:08:34) eGFR: 73 mL/min/1.73m2 (07/21/17 07:08:36) Globulin: 3.5 g/dL (07/18/17 22:38:33) Glucose Lvl: 151 mg/dL High (07/21/17 07:08:34) Total Protein: 7.4 g/dL (07/18/17 22:38:33)Hct: 37.7 % Low (07/21/17 06:50:41) Hgb: 13.2 g/dL Low (07/21/17 06:50:41) MCH: 32.7 pg High (07/21/17 06:50:41) MCHC: 34.9 g/dL (07/21/17 06:50:41) MCV: 93.6 fL (07/21/17 06:50:41) MPV: 8.3 fL (07/21/17 06:50:41) Platelet: 176 K/CMM (07/21/17 06:50:41) RBC: 4.03 M/CMM Low (07/21/17 06:50:41) RDW: 13.3 % (07/21/17 06:50:41) WBC: 11.4 K/CMM High (07/21/17 06:50:41) RADIOLOGY: MICRO: Blood cultures positive 2 out of 2 sets for coagulase negative staph ASSESSMENT/PLAN: This is a 67-year-old male presenting with Coagulase-negative staph bacteremia Fever Leukocytosis Anemia BPH Status post TURP At this point patient with a high-grade cordless negative staph bacteremia would require IV antibiotic vancomycin 10-14 days PICC line placement repeat cultures if negative home on IV vancomycin to complete the course case is discussed with patient is agreeable for treatment plan will follow in outpatient clinic to make further recommendations thanks for involving us the care Extracted from:Title: Clinical Document Author: Cheng Terrazas MD Date: 07/19/17 full H&P dictated, #[id number] date/time: 07/19/2017 03:34 07/24/2017 [facility] Plan of Care No Data Provided for This Section Social History Social History Date Source Social History TypeResponse Alcohol Current, Last use: 4 times a year. Smoking Status Former smoker; Exposure to Tobacco Smoke None; Cigarette Smoking Last 365 Days No; Reg Smoking Cessation Counseling No entered on: 07/19/17 07/09/2017 [facility] Family History No Data Provided for This Section Advance Directives No Data Provided for This Section Functional Status No Data Provided for This Section
--- OUTSIDE RECORDS SUMMARY | 2018-11-30 11:25 | XMS REPORT | Summary of Care ---
Author Author [facility] Organization [facility] Address Unknown Phone Unavailable Encounter HQ Corey(FIN) [id number] Date(s): 08/29/17 - 08/29/17 [facility] [address] [place] [address]- [phone] Discharge Disposition: Home or Self Care Attending Physician: Chris Jansen MD Referring Physician: Chris Jansen MD Vital Signs No data available for this section Problem List No data available for this section Allergies, Adverse Reactions, Alerts Substance Reaction Severity Status sulfa drugs Active Medications Omnipaque 300 10 mL, Route: MISC, Drug Form: SOLN, ONCE, Start date: 08/29/17 10:30:00 CDT, St op date: 08/29/17 10:30:00 CDT Notes: (Same as:Omnipaque 300).WASTE: F/P - Black; E - Municipal Trash Bin Start Date: 08/29/17 Stop Date: 08/29/17 Status: Completed Results No data available for this section Immunizations No data available for this section Procedures Procedure Date Related Diagnosis Body Site Status Achilles tendon repair Completed Cataract extraction, insertion of intraocular Completed lens and trabeculectomy Social History Social History Type Response Alcohol Current, Last use: 4 times a year. Smoking Status Former smoker; Exposure to Tobacco Smoke None; Cigarette Smoking Last 365 Days No; Reg Smoking Cessation Counseling No entered on: 07/19/17 Assessment and Plan No data available for this section
--- OUTSIDE RECORDS SUMMARY | 2018-11-30 11:25 | XMS REPORT | Summary of Care ---
Author Author [facility] Organization [facility] Address Unknown Phone Unavailable Encounter JONATHAN Nicole(FIN) [id number] Date(s): 07/17/17 - 07/17/[address] [facility] [address] [place] [address]- Encounter Diagnosis Urethral stricture, unspecified (Final) - 07/25/17 Benign prostatic hyperplasia with lower urinary tract symptoms (Final) - Other obstructive and reflux uropathy (Final) - Calculus in bladder (Final) - Chronic prostatitis (Final) - Essential (primary) hypertension (Final) - Type 2 diabetes mellitus without complications (Final) - Personal history of nicotine dependence (Final) - [facility] (current) use of aspirin (Final) - Other penitentiary (current) drug therapy (Final) - Discharge Disposition: Home or Self Care Attending Physician: Chris Jansen MD Referring Physician: Chris Jansen MD Vital Signs 1 2 3 Most recent to oldest [Reference Range]: 193.04 cm (07/09/17 4:06 PM) Height 98.1 DegF (07/09/17 4:31 PM) Temperature Oral [96.4-99.1 DegF] 157/77 mmHg *HI* (07/17/17 5:03 PM) 141/96 mmHg *HI* (07/17/17 3:33 PM) 139/87 mmHg (07/17/17 3:30 PM) Blood Pressure [90-140/60-90 mmHg] 16 BRMIN (07/17/17 5:03 PM) 14 BRMIN (07/17/17 3:33 PM) 13 BRMIN *LOW* (07/17/17 3:30 PM) Respiratory Rate [14-20 BRMIN] 94 bpm (07/17/17 9:26 AM) 109 bpm *HI* (07/09/17 4:31 PM) Peripheral Pulse Rate [60-100 bpm] 93.182 kg (07/09/17 4:06 PM) Weight 25.01 m2 (07/09/17 4:06 PM) Body Mass Index Problem List No data available for this section Allergies, Adverse Reactions, Alerts Substance Reaction Severity Status sulfa drugs Active Medications albuterol-ipratropium 2.5-0.5 mg inhalation solution 3 mL, Route: NEB, Drug Form: SOLN, Dosing Weight 93.182, kg, ONCE, STAT, Start d ate: 07/17/17 9:20:00 ANESTHESIOLOGY RESIDENT, Stop date: 07/17/17 9:20:00 ANESTHESIOLOGY RESIDENT Notes: (Same as: Alea) Start Date: 07/17/17 Stop Date: 07/27/17 Status: Discontinued ANES albuterol 0.083% inhalation solution 2.49 mg, Route: NEB, Q20Min, Dosing Weight 93.182, kg, PRN Wheezing, Priority: S TAT, Start date: 07/17/17 15:20:00 ANESTHESIOLOGY RESIDENT, Duration: 30 day, Stop date: 08/16/17 16 :19:00 CDT Start Date: 07/17/17 Stop Date: 07/17/17 Status: Discontinued ANES diphenhydrAMINE 12.5 mg, Route: IVP, Drug form: INJ, Q6H, Dosing Weight 93.182, kg, PRN Itching, Start date: 07/17/17 15:20:00 ANESTHESIOLOGY RESIDENT, Duration: 30 day, Stop date: 08/16/17 15:19: 00 CDT Start Date: 07/17/17 Stop Date: 07/17/17 Status: Discontinued ANES esmolol 10 mg, Route: IVP, Q5Min, Dosing Weight 93.182, kg, PRN Other -See Comment, Star t date: 07/17/17 15:20:00 ANESTHESIOLOGY RESIDENT, Duration: 5 doses or times, Stop date: Limited # of times Start Date: 07/17/17 Stop Date: 07/17/17 Status: Discontinued ANES fentaNYL 25 microgram, Route: IVP, Q5Min, Dosing Weight 93.182, kg, PRN Pain Score 4-6, P riority: Routine, Start date: 07/17/17 15:20:00 ANESTHESIOLOGY RESIDENT, Duration: 4 doses or times, Stop date: Limited # of times Start Date: 07/17/17 Stop Date: 07/17/17 Status: Discontinued ANES fentaNYL 50 microgram, Route: IVP, Q5Min, Dosing Weight 93.182, kg, PRN Pain Score 7-10, Priority: Routine, Start date: 07/17/17 15:20:00 ANESTHESIOLOGY RESIDENT, Duration: 2 doses or times , Stop date: Limited # of times Start Date: 07/17/17 Stop Date: 07/17/17 Status: Discontinued ANES flumazenil 0.2 mg, Route: IVP, PRN, Dosing Weight 93.182, kg, PRN Benzodiazepine Reversal, Initial dose, Start date: 07/17/17 15:20:00 ANESTHESIOLOGY RESIDENT, Duration: 30 day, Stop date: 16:19:00 CDT Start Date: 07/17/17 Stop Date: 07/17/17 Status: Discontinued ANES hydrALAZINE 10 mg, Route: IVP, Q20Min, Dosing Weight 93.182, kg, PRN Elevated BP, Start date : 07/17/17 15:20:00 ANESTHESIOLOGY RESIDENT, Duration: 2 doses or times, Stop date: Limited # of sangeeta es Start Date: 07/17/17 Stop Date: 07/17/17 Status: Discontinued ANES labetalol 10 mg, Route: IVP, Q5Min, Dosing Weight 93.182, kg, PRN Elevated BP, Start date: 07/17/17 15:20:00 ANESTHESIOLOGY RESIDENT, Duration: 5 doses or times, Stop date: Limited # of times Start Date: 07/17/17 Stop Date: 07/17/17 Status: Discontinued ANES meperidine 12.5 mg, Route: IVP, Q30Min, Dosing Weight 93.182, kg, PRN Other -See Comment, F or shivering, Start date: 07/17/17 15:20:00 ANESTHESIOLOGY RESIDENT, Duration: 2 doses or times, Sto p date: Limited # of times Start Date: 07/17/17 Stop Date: 07/17/17 Status: Discontinued ANES naloxone 0.4 mg, Route: IVP, Q2MIN, Dosing Weight 93.182, kg, PRN Narcotic Reversal, Star t date: 07/17/17 15:20:00 ANESTHESIOLOGY RESIDENT, Duration: 8 doses or times, Stop date: Limited # of times Start Date: 07/17/17 Stop Date: 07/17/17 Status: Discontinued ANES ondansetron 4 mg, Route: IVP, ONCE, Dosing Weight 93.182, kg, PRN Nausea & Vomiting, Start date: 07/17/17 15:20:00 ANESTHESIOLOGY RESIDENT Start Date: 07/17/17 Stop Date: 07/17/17 Status: Discontinued ANES promethazine 6.25 mg, Route: IVPB, ONCE, Dosing Weight 93.182, kg, PRN Nausea & Vomiting, Start date: 07/17/17 15:20:00 ANESTHESIOLOGY RESIDENT Start Date: 07/17/17 Stop Date: 07/17/17 Status: Discontinued aspirin 81 mg tablet, enteric coated 81 mg=1 tab, PO, Daily, last dose 07/09/17, # 90 tab, 3 Refill(s) Start Date: 07/09/17 Stop Date: 07/23/17 Status: Discontinued Cipro 500 mg oral tablet 500 mg=1 tab, PO, Q12H, for UTI, X 3 day, # 6 tab, 0 Refill(s) Start Date: 07/17/17 Stop Date: 07/20/17 Status: Completed ciprofloxacin (ANES) Route: IV, Drug form: INJ, ONCE, Stop date: 07/17/17 14:38:00 ANESTHESIOLOGY RESIDENT Start Date: 07/17/17 Stop Date: 07/17/17 Status: Completed enalapril 10 mg oral tablet 10 mg=1 tab, PO, Daily, # 30 tab, 0 Refill(s) Start Date: 07/09/17 Status: Ordered fentaNYL (ANES) Route: IV, Drug form: INJ, ONCE, Stop date: 07/17/17 14:38:00 ANESTHESIOLOGY RESIDENT Start Date: 07/17/17 Stop Date: 07/17/17 Status: Completed finasteride 1 mg oral tablet 1 mg=1 tab, PO, Daily, # 30 tab, 0 Refill(s) Start Date: 07/09/17 Status: Ordered Flomax 0.4 mg oral capsule 0.4 mg=1 cap, PO, Daily, # 30 cap, 0 Refill(s) Start Date: 07/09/17 Status: Ordered Janumet XR 100 mg-1000 mg oral tablet, extended release 1 tab, PO, BID, # 30 tab, 0 Refill(s) Start Date: 07/09/17 Stop Date: 08/08/17 Status: Ordered Lactated Ringers Injection IV (ANES) 1000 mL Route: IV, Total Volume: 1,000, Start date: 07/17/17 13:44:00 ANESTHESIOLOGY RESIDENT, Stop date: 14:44:00 ANESTHESIOLOGY RESIDENT Start Date: 07/17/17 Stop Date: 07/17/17 Status: Completed Lactated Ringers Injection IV 1000 mL 1,000 mL, Rate: 125 ml/hr, Infuse over: 8 hr, Route: IV, Dosing Weight 93.182 kg , Total Volume: 1,000, Start date: 07/17/17 15:20:00 ANESTHESIOLOGY RESIDENT, Duration: 30 day, Stop date: 08/16/17 15:19:00 CDT, 2.24, m2 Start Date: 07/17/17 Stop Date: 07/17/17 Status: Discontinued Lactated Ringers Injection IV 1000 mL 1,000 mL, Rate: 25 ml/hr, Infuse over: 40 hr, Route: IV, Dosing Weight 93.182 kg , Total Volume: 1,000, Start date: 07/17/17 9:20:00 ANESTHESIOLOGY RESIDENT, Duration: 30 day, Stop date: 08/16/17 9:19:00 CDT, 2.24, m2 Start Date: 07/17/17 Stop Date: 07/17/17 Status: Discontinued latanoprost ophthalmic 1 drp, QPM, 0 Refill(s) Start Date: 07/09/17 Status: Ordered Levsin SL 0.125 mg sublingual tablet 0.125 mg=1 tab, SL, Q4H, PRN Bladder Spasm, # 40 tab, 1 Refill(s) Start Date: 07/17/17 Status: Ordered lidocaine (ANES) Route: IV, Drug form: INJ, ONCE, Stop date: 07/17/17 14:38:00 ANESTHESIOLOGY RESIDENT Start Date: 07/17/17 Stop Date: 07/17/17 Status: Completed ondansetron (ANES) Route: IV, Drug form: INJ, ONCE, Stop date: 07/17/17 15:04:00 ANESTHESIOLOGY RESIDENT Start Date: 07/17/17 Stop Date: 07/17/17 Status: Completed oxyCODONE 5 mg oral tablet 10 mg, Route: PO, Drug form: TAB, ONCE, Dosing Weight 93.182, kg, PRN Pain Score 7-10, Start date: 07/17/17 15:57:00 ANESTHESIOLOGY RESIDENT Start Date: 07/17/17 Stop Date: 07/17/17 Status: Completed propofol (ANES) Route: IV, Drug form: INJ, ONCE, Stop date: 07/17/17 14:38:00 ANESTHESIOLOGY RESIDENT Start Date: 07/17/17 Stop Date: 07/17/17 Status: Completed tramadol 50 mg oral tablet 50 mg=1 tab, PO, Q8H, PRN Pain, X 20 day, # 30 tab, 0 Refill(s) Start Date: 07/17/17 Stop Date: 08/06/17 Status: Completed Results ELECTROLYTES Most recent to 1 oldest [Reference Range]: Sodium Lvl [135-145 135 mEq/L mEq/L] (07/09/17 4:22 PM) Potassium Lvl 4.1 mEq/L [3.5-5.1 mEq/L] (07/09/17 4:22 PM) Chloride Lvl [95-109 102 mEq/L mEq/L] (07/09/17 4:22 PM) CO2 [24-32 mEq/L] 25 mEq/L (07/09/17 4:22 PM) AGAP [10.0-20.0 12.1 mEq/L mEq/L] (07/09/17 4:22 PM) CHEM PANEL Most recent to 1 oldest [Reference Range]: Creatinine Lvl 1.42 mg/dL [0.50-1.40 mg/dL] *HI* (07/09/17 4:22 PM) eGFR 50 mL/min/1.73m2 1 *NA* (07/09/17 4:22 PM) BUN [7-22 mg/dL] 17 mg/dL (07/09/17 4:22 PM) Glucose Lvl [70-99 205 mg/dL mg/dL] *HI* (07/09/17 4:22 PM) Calcium Lvl 9.4 mg/dL [8.5-10.5 mg/dL] (07/09/17 4:22 PM) 1Result Comment: The eGFR is calculated using the [...] from the National Kid[employer] Education Program ( NKDEP) which additionally recommends that when the eGFR is used in patients with extremes of body mass index for purposes of drug dosing, the eGFR should be mul tiplied by the estimated BMI. URINE AND STOOL Most recent to 1 oldest [Reference Range]: UA Turbidity [Clear] Clear (07/09/17 4:22 PM) UA Color Ltyellow *NA* (07/09/17 4:22 PM) UA pH [5.0-8.0] 5.0 (07/09/17 4:22 PM) UA Spec Grav 1.010 [<=1.030] (07/09/17 4:22 PM) UA Glucose [Negative 500 mg/dL mg/dL] *ABN* (07/09/17 4:22 PM) UA Blood [Negative] Small *ABN* (07/09/17 4:22 PM) UA Ketones [Negative Negative mg/dL mg/dL] *NA* (07/09/17 4:22 PM) UA Protein [Negative Negative mg/dL mg/dL] (07/09/17 4:22 PM) UA Urobilinogen <=1.0 mg/dL [0.1-1.0 mg/dL] *NA* (07/09/17 4:22 PM) UA Bili [Negative] Negative *NA* (07/09/17 4:22 PM) UA Leuk Est Trace [Negative] *ABN* (07/09/17 4:22 PM) UA Nitrite Negative [Negative] (07/09/17 4:22 PM) UA WBC [0-5 /HPF] 3 /HPF (07/09/17 4:22 PM) UA RBC [0-2 /HPF] 3 /HPF *HI* (07/09/17 4:22 PM) UA Sq Epi [Few /LPF] Occasional /LPF *NA* (07/09/17 4:22 PM) HEMATOLOGY Most recent to 1 oldest [Reference Range]: WBC [3.7-10.4 K/CMM] 10.2 K/CMM (07/09/17 4:22 PM) RBC [4.70-6.10 5.00 M/CMM M/CMM] (07/09/17 4:22 PM) Hgb [14.0-18.0 g/dL] 16.4 g/dL (07/09/17 4:22 PM) Hct [42.0-54.0 %] 47.1 % (07/09/17 4:22 PM) MCV [80.0-94.0 fL] 94.1 fL *HI* (07/09/17 4:22 PM) MCH [27.0-31.0 pg] 32.9 pg *HI* (07/09/17 4:22 PM) MCHC [32.0-36.0 34.9 g/dL g/dL] (07/09/17 4:22 PM) RDW [11.5-14.5 %] 13.9 % (07/09/17 4:22 PM) MPV [7.4-10.4 fL] 8.7 fL (07/09/17 4:22 PM) Platelet [133-450 239 K/CMM K/CMM] (07/09/17 4:22 PM) Segs [45.0-75.0 %] 72.0 % (07/09/17 4:22 PM) Lymphocytes 17.3 % [20.0-40.0 %] *LOW* (07/09/17 4:22 PM) Monocytes [2.0-12.0 9.8 % %] (07/09/17 4:22 PM) Eosinophils [0.0-4.0 0.7 % %] (07/09/17 4:22 PM) Basophils [0.0-1.0 0.2 % %] (07/09/17 4:22 PM) Segs-Bands # 7.4 K/CMM [1.5-8.1 K/CMM] (07/09/17 4:22 PM) Lymphocytes # 1.8 K/CMM [1.0-5.5 K/CMM] (07/09/17 4:22 PM) Monocytes # [0.0-0.8 1.0 K/CMM K/CMM] *HI* (07/09/17 4:22 PM) Eosinophils # 0.1 K/CMM [0.0-0.5 K/CMM] (07/09/17 4:22 PM) PT [12.0-14.7 12.4 seconds seconds] (07/09/17 4:22 PM) INR [0.85-1.17] 0.92 (07/09/17 4:22 PM) PTT [22.9-35.8 30.1 seconds seconds] (07/09/17 4:22 PM) Immunizations No data available for this section [...]
--- OUTSIDE RECORDS SUMMARY | 2018-11-30 11:26 | XMS REPORT | Summary of Care ---
Author Author [facility] Organization [facility] Address Unknown Phone Unavailable Encounter JONATHAN Nicole(ROSARIO) [id number] Date(s): 07/18/17 - 07/24/17 [facility] [address] [place] [address]- Encounter Diagnosis Urinary tract infection, site not specified (Final) - Sepsis due to other specified staphylococcus (Final) - 07/31/17 Type 2 diabetes mellitus with diabetic chronic kidney disease (Final) - Chronic kidney disease, stage 3 (moderate) (Final) - Urinary tract infection, site not specified (Final) - Benign prostatic hyperplasia without lower urinary tract symptoms (Final) - Anemia, unspecified (Final) - Personal history of urinary calculi (Final) - Personal history of nicotine dependence (Final) - exterminator helper (current) use of oral hypoglycemic drugs (Final) - Constipation, unspecified (Final) - Epididymitis (Final) - Discharge Disposition: [facility] Facility Attending Physician: Shaggy Bradley MD Admitting Physician: Shaggy Bradley MD Vital Signs 1 2 3 Most recent to oldest [Reference Range]: 193.04 cm (07/19/17 5:09 AM) 193.04 cm (07/18/17 9:30 PM) Height 93.182 kg (07/19/17 5:09 AM) Current Weight 97.9 DegF (07/24/17 2:36 PM) 98.2 DegF (07/24/17 11:02 AM) 98.2 DegF (07/24/17 7:04 AM) Temperature Oral [96.4-99.1 DegF] 120/71 mmHg (07/24/17 2:36 PM) 121/71 mmHg (07/24/17 11:02 AM) 116/70 mmHg (07/24/17 7:04 AM) Blood Pressure [90-140/60-90 mmHg] 18 BRMIN (07/24/17 2:36 PM) 16 BRMIN (07/24/17 7:04 AM) 16 BRMIN (07/24/17 4:14 AM) Respiratory Rate [14-20 BRMIN] 99 bpm (07/24/17 2:36 PM) 81 bpm (07/24/17 11:02 AM) 74 bpm (07/24/17 7:04 AM) Peripheral Pulse Rate [60-100 bpm] 93.182 kg (07/18/17 9:30 PM) Weight 25.01 m2 (07/18/17 9:30 PM) Body Mass Index Problem List No data available for this section Allergies, Adverse Reactions, Alerts Substance Reaction Severity Status sulfa drugs Active Medications WAIT for vanco trough draw prior to next dose WAIT for vanco trough draw prior to next dose, reminder, Drug form: Maximus ROSE e: MILTON, ONCE, 07/21/17 20:30:00 FINANCE CONSULTANT, Stop date: 07/21/17 20:30:00 FINANCE CONSULTANT Start Date: 07/21/17 Stop Date: 07/21/17 Status: Completed acetaminophen-hydrocodone 325 mg-5 mg oral tablet 1 tab, Route: PO, Drug Form: TAB, Dosing Weight 93.182, kg, Q4H, PRN Pain Score 4-6, Start date: 07/19/17 3:34:00 FINANCE CONSULTANT, Duration: 30 day, Stop date: 08/18/17 3:3 3:00 CDT Notes: (Same as: [place] 325/5) Do not exceed 4gm/day of acetaminophen. Start Date: 07/19/17 Stop Date: 07/19/17 Status: Discontinued aspirin 81 mg, PO, Daily, 0 Refill(s) Start Date: 07/19/17 Status: Ordered aspirin 81 mg, 1 tab, Route: PO, Drug form: [place], Daily, Dosing Weight 93.182, kg, St art date: 07/19/17 10:00:00 FINANCE CONSULTANT, Duration: 30 day, Stop date: 08/18/17 9:00:00 C DT Notes: Take with food. Start Date: 07/19/17 Stop Date: 07/21/17 Status: Deleted Colace 100 mg oral capsule 100 mg, 1 cap, Route: PO, Drug form: CAP, BID, Dosing Weight 93.182, kg, Start d ate: 07/22/17 11:19:00 FINANCE CONSULTANT, Duration: 30 day, Stop date: 08/21/17 9:00:00 CDT Notes: (Same as: Colace) (Do Not Crush) Start Date: 07/22/17 Stop Date: 07/24/17 Status: Discontinued Colace 100 mg oral capsule 100 mg, 1 cap, Route: PO, BID, Dosing Weight 93.182, kg, Start date: 07/22/17 17 :00:00 FINANCE CONSULTANT, Duration: 30 day, Stop date: 08/21/17 9:00:00 CDT Start Date: 07/22/17 Stop Date: 07/22/17 Status: Canceled Colace 100 mg oral capsule 100 mg=1 cap, PO, BID, # 20 cap, 0 Refill(s), Pharmacy: [facility] [id number] Start Date: 07/23/17 Status: Ordered Dextrose 50% Syringe 25 gm, 50 mL, Route: IVP, Drug Form: INJ, Dosing Weight 93.182, kg, PRN, PRN Blo od Glucose Results, Start date: 07/19/17 9:53:00 FINANCE CONSULTANT, Duration: 30 day, Stop lyle e: 08/18/17 10:52:00 CDT Start Date: 07/19/17 Stop Date: 07/24/17 Status: Discontinued Dextrose 50% Syringe 12.5 gm, 25 mL, Route: IVP, Drug Form: INJ, Dosing Weight 93.182, kg, PRN, PRN B lood Glucose Results, Start date: 07/19/17 9:53:00 FINANCE CONSULTANT, Duration: 30 day, Stop d ate: 08/18/17 10:52:00 CDT Start Date: 07/19/17 Stop Date: 07/24/17 Status: Discontinued doxycycline 100 mg, 2 cap, Route: PO, Drug form: CAP, [id number], Dosing Weight 93.182, kg, Sta rt date: 07/21/17 9:00:00 FINANCE CONSULTANT, Duration: 14 day, Stop date: 08/03/17 21:00:00 CD T Notes: (Same as: Vibramycin) No milk/antacids/iron. Take 1 hour before or 2 dereje rs after dairy products Start Date: 07/21/17 Stop Date: 07/21/17 Status: Discontinued enalapril 10 mg, 1 tab, Route: PO, Drug form: TAB, Bedtime, Dosing Weight 93.182, kg, Carleneo darryl: NOW, Start date: 07/19/17 22:11:00 FINANCE CONSULTANT, Duration: 30 day, Stop date: 08/18 21:00:00 CDT Notes: (Same as: Vasotec) Start Date: 07/19/17 Stop Date: 07/24/17 Status: Discontinued enalapril 10 mg, 1 tab, Route: PO, Drug form: TAB, Daily, Dosing Weight 93.182, kg, Start date: 07/20/17 9:00:00 FINANCE CONSULTANT, Duration: 30 day, Stop date: 08/18/17 9:00:00 CDT Notes: (Same as: Vasotec) Start Date: 07/20/17 Stop Date: 07/21/17 Status: Discontinued enoxaparin 40 mg/0.4 mL subcutaneous solution 40 mg=0.4 mL, SUB-Q, [id number], # 7 syr, 0 Refill(s) Start Date: 07/23/17 Stop Date: 07/24/17 Status: Completed finasteride 1 mg, Route: PO, Drug form: TAB, Daily, Dosing Weight 93.182, kg, Start date: 9:00:00 FINANCE CONSULTANT, Duration: 30 day, Stop date: 08/18/17 9:00:00 CDT Start Date: 07/20/17 Stop Date: 07/19/17 Status: Discontinued Finasteride 1mg po daily-Pt's own med Finasteride 1mg po daily-Pt's own med, 1 mg, Drug form: MISC, Route: PO, Daily, 07/20/17 9:00:00 FINANCE CONSULTANT, Duration: 30 day, Stop date: 08/18/17 21:00:00 CDT Start Date: 07/20/17 Stop Date: 07/24/17 Status: Discontinued Flomax 0.4 mg, 1 cap, Route: PO, Drug form: CAP, Daily, Dosing Weight 93.182, kg, Start date: 07/20/17 9:00:00 FINANCE CONSULTANT, Duration: 30 day, Stop date: 08/18/17 9:00:00 CDT Notes: (Same As: Flomax) "Do Not Crush" Start Date: 07/20/17 Stop Date: 07/24/17 Status: Discontinued glucagon 1 mg, Route: IM, Drug form: PDR/INJ, PRN, Dosing Weight 93.182, kg, PRN Blood Gl ucose Results, Start date: 07/19/17 9:53:00 FINANCE CONSULTANT, Duration: 30 day, Stop date: 10:52:00 CDT Start Date: 07/19/17 Stop Date: 07/24/17 Status: Discontinued insulin lispro 1 unit, 0.01 mL, Route: SUB-Q, Drug form: SOLN, TID-Before Meals, Dosing Weight 93.182, kg, PRN Blood Glucose Results, Start date: 07/19/17 9:53:00 FINANCE CONSULTANT, Duratio n: 30 day, Stop date: 08/18/17 9:52:00 CDT Notes: (Same as: Humalog ) Roll in palms of hands gently; Do not shake `vigorou sly. "Single Patient Use Only " WASTE: F/P - Black; E - Municipal Trash [address] St able for 28 days at room temperature.Expires in days from Da te Start Date: 07/19/17 Stop Date: 07/24/17 Status: Discontinued insulin lispro 1 unit, 0.01 mL, Route: SUB-Q, Drug form: SOLN, Bedtime, Dosing Weight 93.182, k g, PRN Blood Glucose Results, Start date: 07/19/17 9:53:00 FINANCE CONSULTANT, Duration: 30 day , Stop date: 08/18/17 9:52:00 CDT Notes: (Same as: Humalog ) Roll in palms of hands gently; Do not shake `vigorou sly. "Single Patient Use Only " WASTE: F/P - Black; E - [facility] [employer] [address] able for 28 days at room temperature.Expires in days from Da te Start Date: 07/19/17 Stop Date: 07/24/17 Status: Discontinued insulin lispro 2 unit, 0.02 mL, Route: SUB-Q, Drug form: SOLN, Bedtime, Dosing Weight 93.182, k g, PRN Blood Glucose Results, Start date: 07/19/17 9:53:00 FINANCE CONSULTANT, Duration: 30 day , Stop date: 08/18/17 9:52:00 CDT Notes: (Same as: Humalog ) Roll in palms of hands gently; Do not shake `vigorou sly. "Single Patient Use Only " WASTE: F/P - Black; E - [facility] [address] able for 28 days at room temperature.Expires in days from Da te Start Date: 07/19/17 Stop Date: 07/24/17 Status: Discontinued insulin lispro 3 unit, 0.03 mL, Route: SUB-Q, Drug form: SOLN, Bedtime, Dosing Weight 93.182, k g, PRN Blood Glucose Results, Start date: 07/19/17 9:53:00 FINANCE CONSULTANT, Duration: 30 day , Stop date: 08/18/17 9:52:00 CDT Notes: (Same as: Humalog ) Roll in palms of hands gently; Do not shake `vigorou sly. "Single Patient Use Only " WASTE: F/P - Black; E - [facility] [address] able for 28 days at room temperature.Expires in days from Da te Start Date: 07/19/17 Stop Date: 07/24/17 Status: Discontinued insulin lispro 4 unit, 0.04 mL, Route: SUB-Q, Drug form: SOLN, Bedtime, Dosing Weight 93.182, k g, PRN Blood Glucose Results, Start date: 07/19/17 9:53:00 FINANCE CONSULTANT, Duration: 30 day , Stop date: 08/18/17 9:52:00 CDT Notes: (Same as: Humalog ) Roll in palms of hands gently; Do not shake `vigorou sly. "Single Patient Use Only " WASTE: F/P - Black; E - [facility] [address] able for 28 days at room temperature.Expires in days from Da te Start Date: 07/19/17 Stop Date: 07/24/17 Status: Discontinued insulin lispro 2 unit, 0.02 mL, Route: SUB-Q, Drug form: SOLN, TID-Before Meals, Dosing Weight 93.182, kg, PRN Blood Glucose Results, Start date: 07/19/17 9:53:00 FINANCE CONSULTANT, Duratio n: 30 day, Stop date: 08/18/17 9:52:00 CDT Notes: (Same as: Humalog ) Roll in palms of hands gently; Do not shake `vigorou sly. "Single Patient Use Only " WASTE: F/P - Black; E - [facility] [address] able for 28 days at room temperature.Expires in days from Da te Start Date: 07/19/17 Stop Date: 07/24/17 Status: Discontinued insulin lispro 3 unit, 0.03 mL, Route: SUB-Q, Drug form: SOLN, TID-Before Meals, Dosing Weight 93.182, kg, PRN Blood Glucose Results, Start date: 07/19/17 9:53:00 FINANCE CONSULTANT, Duratio n: 30 day, Stop date: 08/18/17 9:52:00 CDT Notes: (Same as: Humalog ) Roll in palms of hands gently; Do not shake `vigorou sly. "Single Patient Use Only " WASTE: F/P - Black; E - [facility] [address] able for 28 days at room temperature.Expires in days from Da te Start Date: 07/19/17 Stop Date: 07/24/17 Status: Discontinued insulin lispro 4 unit, 0.04 mL, Route: SUB-Q, Drug form: SOLN, TID-Before Meals, Dosing Weight 93.182, kg, PRN Blood Glucose Results, Start date: 07/19/17 9:53:00 FINANCE CONSULTANT, Duratio n: 30 day, Stop date: 08/18/17 9:52:00 CDT Notes: (Same as: Humalog ) Roll in palms of hands gently; Do not shake `vigorou sly. "Single Patient Use Only " WASTE: F/P - Black; E - [facility] [address] able for 28 days at room temperature.Expires in days from Da te Start Date: 07/19/17 Stop Date: 07/24/17 Status: Discontinued insulin lispro 5 unit, 0.05 mL, Route: SUB-Q, Drug form: SOLN, TID-Before Meals, Dosing Weight 93.182, kg, PRN Blood Glucose Results, Start date: 07/19/17 9:53:00 FINANCE CONSULTANT, Duratio n: 30 day, Stop date: 08/18/17 9:52:00 CDT Notes: (Same as: Humalog ) Roll in palms of hands gently; Do not shake `joanne denise. "Single Patient Use Only " WASTE: F/P - Black; E - [facility] [address] able for 28 days at room temperature.Expires in days from Da te Start Date: 07/19/17 Stop Date: 07/24/17 Status: Discontinued Lactated Ringers IV 1,000 mL 1,000 mL, Rate: 75 ml/hr, Infuse over: 13.3 hr, Route: IV, Dosing Weight 93.182 kg, Total Volume: 1,000, Start date: 07/19/17 3:34:00 FINANCE CONSULTANT, Duration: 30 day, Sto p date: 08/18/17 3:33:00 CDT, 2.24, m2 Start Date: 07/19/17 Stop Date: 07/24/17 Status: Discontinued latanoprost ophthalmic 1 drp, Route: BOTH EYES, QPM, Drug form: SOLN, Start date: 07/19/17 17:00:00 FINANCE CONSULTANT , Duration: 30 day, Stop date: 08/17/17 21:00:00 CDT Notes: Keep refrigerated. (Same as:Xalatan)Opened bottle may be stored at room t emperature for 6 weeks Start Date: 07/19/17 Stop Date: 07/24/17 Status: Discontinued Levsin SL 0.125 mg, Route: SL, Drug form: TAB, Q4H, Dosing Weight 93.182, kg, PRN Bladder Spasm, Priority: NOW, Start date: 07/19/17 22:34:00 FINANCE CONSULTANT, Duration: 30 day, Stop date: 08/18/17 22:33:00 CDT Start Date: 07/19/17 Stop Date: 07/19/17 Status: Discontinued Levsin SL 0.125 mg, 1 tab, Route: SL, Drug form: TAB, Q4H, Dosing Weight 93.182, kg, PRN B ladder Spasm, Start date: 07/19/17 9:52:00 FINANCE CONSULTANT, Duration: 30 day, Stop date: 07/06 9:51:00 CDT Notes: (Same as: Levsin) Take 30 min before meal Start Date: 07/19/17 Stop Date: 07/24/17 Status: Discontinued Lovenox 40 mg, 0.4 mL, Route: SUB-Q, Drug form: INJ, [id number], Dosing Weight 93.182, kg, Start date: 07/20/17 11:00:00 FINANCE CONSULTANT, Duration: 30 day, Stop date: 08/18/17 11:00: 00 CDT Notes: (Same as: Lovenox) Start Date: 07/20/17 Stop Date: 07/24/17 Status: Discontinued metFORMIN-sitagliptin 1000 mg-50 mg oral tablet 1 tab, PO, BID-Meals, # 90 tab, 1 Refill(s) Start Date: 07/19/17 Stop Date: 07/23/17 Status: Discontinued MiraLax 17 gm, 1 pkt, Route: PO, Drug form: PWDR, ONCE, Dosing Weight 93.182, kg, Start date: 07/24/17 12:25:00 FINANCE CONSULTANT, Stop date: 07/24/17 12:25:00 FINANCE CONSULTANT Notes: Dissolve in 8 oz of water or juice.(Same as: Miralax) Start Date: 07/24/17 Stop Date: 07/24/17 Status: Completed ondansetron 4 mg, 2 mL, Route: IVP, Drug form: INJ, Q6H, Dosing Weight 93.182, kg, PRN Nause a & Vomiting, Start date: 07/19/17 3:34:00 FINANCE CONSULTANT, Duration: 30 day, Stop date: 08/18/17 3:33:00 CDT Notes: (Same as: Zofran) MEDICATION WASTE Product Size: 4 mgProduct Was angelika: ___ mg Start Date: 07/19/17 Stop Date: 07/24/17 Status: Discontinued Rocephin 1 gm, Route: IVPB, Drug form: PDR/INJ, ONCE, Dosing Weight 93.182, kg, Priority: STAT, Start date: 07/19/17 2:23:00 FINANCE CONSULTANT, Stop date: 07/19/17 2:23:00 FINANCE CONSULTANT, ABX In dication: Urinary Tract Infection Start Date: 07/19/17 Stop Date: 07/19/17 Status: Completed Rocephin + sterile water 10 mL 1 gm, Route: IVP, Drug form: PDR/INJ, Q12H, Dosing Weight 93.182, kg, Start date : 07/19/17 16:00:00 FINANCE CONSULTANT, Duration: 3 day, Stop date: 07/22/17 4:00:00 FINANCE CONSULTANT, ABX I ndication: Urinary Tract Infection Notes: (Same As: Rocephin).Use with 100 mL NS and infuse over 30 min MEDICA TION WASTE Product Size: 1000 mgProduct Wasted: ___ mg Start Date: 07/19/17 Stop Date: 07/21/17 Status: Discontinued Saline Flush 0.9% 10 ml, Route: IVP, Drug Form: INJ, Dosing Weight 93.182, kg, PRN, PRN Line Flush , Start date: 07/19/17 3:34:00 FINANCE CONSULTANT, Duration: 30 day, Stop date: 08/18/17 4:33:0 0 CDT Notes: (Same as: BD Posiflush) Start Date: 07/19/17 Stop Date: 07/24/17 Status: Discontinued Saline Flush 0.9% 10 mL, Route: IVP, Drug Form: INJ, Dosing Weight 93.182, kg, PRN, PRN Line Flush , Start date: 07/18/17 21:33:00 FINANCE CONSULTANT, Duration: 30 day, Stop date: 08/17/17 22:32 :00 CDT Notes: (Same as: BD Posiflush) Start Date: 07/18/17 Stop Date: 07/19/17 Status: Discontinued tramadol 50 mg oral tablet 50 mg, 1 tab, Route: PO, Drug form: TAB, Q4H, Dosing Weight 93.182, kg, PRN Pain Score 1-3, Start date: 07/19/17 5:16:00 FINANCE CONSULTANT, Duration: 30 day, Stop date: 08/18 5:15:00 CDT Notes: Not to exceed 400mg/day. (Same As: Ultram) Start Date: 07/19/17 Stop Date: 07/24/17 Status: Discontinued vancomycin + Sodium Chloride 0.9% IV 250 mL 1,500 mg, Route: IVPB, [id number], Dosing Weight 93.182, kg, Start date: 07/20/17 9 :00:00 FINANCE CONSULTANT, Duration: 7 day, Stop date: 07/26/17 21:00:00 FINANCE CONSULTANT, ABX Indication: B acteremia Notes: TIME CRITICAL MEDICATION(Same As: Vancocin)Infusion rate< 1000 mg: infuse over 1 [id number] - 1500 mg: infuse over 1.5 [id number] - 2000 mg: infuse over 2 hours> 2001 mg: infuse over 2.5 hoursFor adult patients only: Round to nearest 250 mg per Medical Staff approval MEDICATION WASTE Product Size: 1000 mgProduct Wasted: ___ mg Start Date: 07/20/17 Stop Date: 07/24/17 Status: Discontinued vancomycin 1.5 g/150 mL-NaCl 0.9% intravenous solution 1.5 gm, IV, Q12H, # 20 bag, 0 Refill(s) Start Date: 07/23/17 Stop Date: 07/24/17 Status: Completed Results ELECTROLYTES 1 2 3 Most recent to oldest [Reference Range]: 136 mEq/L (07/21/17 6:19 AM) 135 mEq/L (07/20/17 5:23 AM) 133 mEq/L *LOW* (07/19/17 12:19 PM) Sodium Lvl [135-145 mEq/L] 4.3 mEq/L (07/21/17 6:19 AM) 4.2 mEq/L (07/20/17 5:23 AM) 3.7 mEq/L (07/19/17 12:19 PM) Potassium Lvl [3.5-5.1 mEq/L] 100 mEq/L (07/21/17 6:19 AM) 100 mEq/L (07/20/17 5:23 AM) 97 mEq/L (07/19/17 12:19 PM) Chloride Lvl [95-109 mEq/L] 27 mEq/L (07/21/17 6:19 AM) 25 mEq/L (07/20/17 5:23 AM) 24 mEq/L (07/19/17 12:19 PM) CO2 [24-32 mEq/L] 13.3 mEq/L (07/21/17:19 AM) 14.2 mEq/L (07/20/17 5:23 AM) 15.7 mEq/L (07/19/17 12:19 PM) AGAP [10.0-20.0 mEq/L] CHEM PANEL 1 2 3 Most recent to oldest [Reference Range]: 1.04 mg/dL (07/21/17 6:19 AM) 1.08 mg/dL (07/20/17:23 AM) 1.26 mg/dL (07/19/17 12:19 PM) Creatinine Lvl [0.50-1.40 mg/dL] 73 mL/min/1.73m2 1 *NA* (07/21/17 6:19 AM) 70 mL/min/1.73m2 2 *NA* (07/20/17 5:23 AM) 58 mL/min/1.73m2 3 *NA* (07/19/17 12:19 PM) eGFR 12 mg/dL (07/21/17 6:19 AM) 10 mg/dL (07/20/17 5:23 AM) 13 mg/dL (07/19/17 12:19 PM) BUN [7-22 mg/dL] 10 (07/18/17 9:54 PM) B/C Ratio [6-25] 151 mg/dL *HI* (07/21/17 6:19 AM) 154 mg/dL *HI* (07/20/17 5:23 AM) 193 mg/dL *HI* (07/19/17 12:19 PM) Glucose Lvl [70-99 mg/dL] 7.4 g/dL (07/18/17 9:54 PM) Total Protein [6.4-8.4 g/dL] 3.9 g/dL (07/18/17 9:54 PM) Albumin Lvl [3.5-5.0 g/dL] 3.5 g/dL (07/18/17 9:54 PM) Globulin [2.7-4.2 g/dL] 1.1 (07/18/17 9:54 PM) A/G Ratio [0.7-1.6] 8.4 mg/dL *LOW* (07/21/17 6:19 AM) 8.6 mg/dL (07/20/17 5:23 AM) 8.6 mg/dL (07/19/17 12:19 PM) Calcium Lvl [8.5-10.5 mg/dL] 28 unit/L (07/18/17 9:54 PM) ALT [0-65 unit/L] 15 unit/L (07/18/17 9:54 PM) AST [0-37 unit/L] 49 unit/L (07/18/17 9:54 PM) Alk Phos [39-136 unit/L] 1.2 mg/dL (07/18/17 9:54 PM) Bili Total [0.2-1.3 mg/dL] 1.1 mMol/L (07/20/17 11:22 AM) 2.1 mMol/L (07/19/17 1:27 AM) 3.9 mMol/L *HI* (07/18/17 9:54 PM) Lactic Acid Lvl [0.5-2.2 mMol/L] 0.14 ng/mL *HI* (07/18/17 9:54 PM) Procalcitonin Lvl [0.00-0.10 ng/mL] 1Result Comment: The eGFR is calculated using [...] be mul tiplied by the estimated BMI. 2Result Comment: The eGFR is calculated using the [...] be mul tiplied by the estimated BMI. 3Result Comment: The eGFR is calculated using the [...] be mul tiplied by the estimated BMI. CARDIAC ENZYMES 1 2 3 Most recent to oldest [Reference Range]: 102 unit/L (07/18/17 9:54 PM) Total CK [12-191 unit/L] <0.02 ng/mL (07/18/17 9:54 PM) Troponin-I [0.00-0.40 ng/mL] TOXICOLOGY 1 2 3 Most recent to oldest [Reference Range]: 21:00 *NA* (07/21/17 8:24 PM) Vanco Tr TND 13.3 ug/ml *NA* (07/21/17 8:24 PM) Vanco Tr URINE AND STOOL 1 2 3 Most recent to oldest [Reference Range]: Marked *ABN* (07/18/17 9:57 PM) UA Turbidity [Clear] Yellow *NA* (07/18/17 9:57 PM) UA Color [Yellow] 5.0 (07/18/17 9:57 PM) UA pH [5.0-8.0] 1.013 (07/18/17 9:57 PM) UA Spec Grav [<=1.030] 500 mg/dL *ABN* (07/18/17 9:57 PM) UA Glucose [Negative mg/dL] Large *ABN* (07/18/17 9:57 PM) UA Blood [Negative] Trace mg/dL *ABN* (07/18/17 9:57 PM) UA Ketones [Negative mg/dL] 100 mg/dL *ABN* (07/18/17 9:57 PM) UA Protein [Negative mg/dL] <=1.0 mg/dL *NA* (07/18/17 9:57 PM) UA Urobilinogen [0.1-1.0 mg/dL] Negative *NA* (07/18/17 9:57 PM) UA Bili [Negative] Large *ABN* (07/18/17 9:57 PM) UA Leuk Est [Negative] Negative (07/18/17 9:57 PM) UA Nitrite [Negative] 151 /HPF *HI* (07/18/17 9:57 PM) UA WBC [0-5 /HPF] 163 /HPF *HI* (07/18/17 9:57 PM) UA RBC [0-2 /HPF] Few /HPF *NA* (07/18/17 9:57 PM) UA Bacteria [None Seen /HPF] Occasional /LPF *NA* (07/18/17 9:57 PM) UA Sq Epi [Few /LPF] Few /LPF *NA* (07/18/17 9:57 PM) UA Mucus [None Seen /LPF] HEMATOLOGY 1 2 3 Most recent to oldest [Reference Range]: 11.4 K/CMM *HI* (07/21/17 6:19 AM) 12.8 K/CMM *HI* (07/20/17 5:23 AM) 13.6 K/CMM *HI* (07/19/17 12:19 PM) WBC [3.7-10.4 K/CMM] 4.03 M/CMM *LOW* (07/21/17:19 AM) 4.12 M/CMM *LOW* (07/20/17:23 AM) 4.06 M/CMM *LOW* (07/19/17: PM) RBC [4.70-6.10 M/CMM] 13.2 g/dL *LOW* (07/21/17:19 AM) 13.6 g/dL *LOW* (07/20/17: AM) 13.2 g/dL *LOW* (07/19/17: PM) Hgb [14.0-18.0 g/dL] 37.7 % *LOW* (07/21/17:19 AM) 38.8 % *LOW* (07/20/17: AM) 37.7 % *LOW* (07/19/17: PM) Hct [42.0-54.0 %] 93.6 fL (07/21/17: AM) 94.1 fL *HI* (07/20/17: AM) 93.0 fL (07/19/17: PM) MCV [80.0-94.0 fL] 32.7 pg *HI* (07/21/17:19 AM) 32.9 pg *HI* (07/20/17: AM) 32.7 pg *HI* (07/19/17: PM) MCH [27.0-31.0 pg] 34.9 g/dL (07/21/17:19 AM) 35.0 g/dL (07/20/17:23 AM) 35.1 g/dL (07/19/17:19 PM) MCHC [32.0-36.0 g/dL] 13.3 % (07/21/17:19 AM) 13.9 % (07/20/17: AM) 13.3 % (07/19/17:19 PM) RDW [11.5-14.5 %] 8.3 fL (07/21/17:19 AM) 8.4 fL (07/20/17:23 AM) 7.9 fL (3/3/18 12:19 PM) MPV [7.4-10.4 fL] 176 K/CMM (07/21/17 6:19 AM) 161 K/CMM (07/20/17 5:23 AM) 160 K/CMM (07/19/17 12:19 PM) Platelet [133-450 K/CMM] 63.9 % (07/21/17 6:19 AM) 70.9 % (07/20/17 5:23 AM) 75.6 % *HI* (07/19/17 12:19 PM) Segs [45.0-75.0 %] 18.6 % *LOW* (07/21/17 6:19 AM) 14.2 % *LOW* (07/20/17 5:23 AM) 9.4 % *LOW* (07/19/17:19 PM) Lymphocytes [20.0-40.0 %] 15.7 % *HI* (07/21/17 6:19 AM) 14.0 % *HI* (07/20/17 5:23 AM) 14.0 % *HI* (07/19/17:19 PM) Monocytes [2.0-12.0 %] 1.3 % (07/21/17 6:19 AM) 0.6 % (07/20/17 5:23 AM) 0.5 % (07/19/17 12:19 PM) Eosinophils [0.0-4.0 %] 0.5 % (07/21/17 6:19 AM) 0.3 % (07/20/17 5:23 AM) 0.5 % (07/19/17:19 PM) Basophils [0.0-1.0 %] 7.3 K/CMM (07/21/17 6:19 AM) 9.1 K/CMM *HI* (07/20/17 5:23 AM) 10.3 K/CMM *HI* (07/19/17:19 PM) Segs-Bands # [1.5-8.1 K/CMM] 2.1 K/CMM (07/21/17 6:19 AM) 1.8 K/CMM (07/20/17 5:23 AM) 1.3 K/CMM (07/19/17 12:19 PM) Lymphocytes # [1.0-5.5 K/CMM] 1.8 K/CMM *HI* (07/21/17 6:19 AM) 1.8 K/CMM *HI* (07/20/17 5:23 AM) 1.9 K/CMM *HI* (07/19/17 12:19 PM) Monocytes # [0.0-0.8 K/CMM] 0.2 K/CMM (07/21/17 6:19 AM) 0.1 K/CMM (07/20/17 5:23 AM) 0.1 K/CMM (07/19/17 12:19 PM) Eosinophils # [0.0-0.5 K/CMM] 0.1 K/CMM (07/21/17 6:19 AM) 0.1 K/CMM (07/19/17 12:19 PM) Basophils # [0.0-0.2 K/CMM] 15.5 seconds *HI* (07/18/17 9:54 PM) PT [12.0-14.7 seconds] 1.22 *HI* (07/18/17 9:54 PM) INR [0.85-1.17] 32.1 seconds (07/18/17 9:54 PM) PTT [22.9-35.8 seconds] MOLECULAR DIAGNOSTIC 1 2 3 Most recent to oldest [Reference Range]: Not Detected (07/18/17 9:54 PM) S. aureus [Not Detected] Detected *ABN* (07/18/17 9:54 PM) S. epidermidis [Not Detected] Not Detected (07/18/17 9:54 PM) S. lugdunensis [Not Detected] Not Detected (07/18/17 9:54 PM) S. anginosus grp [Not Detected] Not Detected (07/18/17 9:54 PM) S. agalactiae [Not Detected] Not Detected (07/18/17 9:54 PM) S. pneumoniae [Not Detected] Not Detected (07/18/17 9:54 PM) S. pyogenes [Not Detected] Not Detected (07/18/17 9:54 PM) E. faecalis [Not Detected] Not Detected (07/18/17 9:54 PM) E. faecium [Not Detected] Detected *ABN* (07/18/17 9:54 PM) Staphylococcus spp. [Not Detected] Not Detected (07/18/17 9:54 PM) Streptococcus spp. [Not Detected] Not Detected (07/18/17 9:54 PM) Listeria spp. [Not Detected] Not Detected (07/18/17 9:54 PM) mecA Methicillin Resistance [Not Detected] Not Detected (07/18/17 9:54 PM) [place] Vancomycin Resistance [Not Detected] Not Detected (07/18/17 9:54 PM) vanB Vancomycin Resistance [Not Detected] Immunizations No data available for this section [...] No entered on: 07/19/17 Assessment and Plan Extracted from: Title: Clinical Document Author: Gallo Kan MD Date: [...] follow up on discharge call Dr Kan [phone] SUBJECTIVE: Seen and examined. Events noted. VITAL SIGNS: Vitals and Temp: VitalsTmp(F)[id number] 07/22 08:[id number]--- 07/22 04:[id number]--- 07/22 00:[id number]--- 07/21 19:[id number]--- 07/21 16:[id number]--- 24 Hr Tmax: 98.5F (36.94c) at 07/22 00:29Vital Signs are the last 5 in the past 48 hours. ROS: otherwise unremarkable PHYSICAL EXAMINATION: Awake lying on bed NAD No thrush CTAB RRR S1&S2 BS+ve NT/ND No edema No Rash No focal defecit IVs ok LABORATORY DATA: Labs (Last four charted values) WBC H 11.4(JUL 21)H 12.8(JUL 20)H 13.6(JUL 19)H 14.7(JUL 18) Hgb L 13.2(JUL 21)L 13.6(JUL 20)L 13.2(JUL 19)14.5(JUL 18) Hct L 37.7(JUL 21)L 38.8(JUL 20)L 37.7(JUL 19)L 41.7(JUL 18) Plt 176(JUL 21)161(JUL 20)160(JUL 19)168(JUL 18) Na 136(JUL 21)135(JUL 20)L 133(JUL 19)L 132(JUL 18) K 4.3(JUL 21)4.2(JUL 20)3.7(JUL 19)3.8(JUL 18) CO2 27(JUL 21)25(JUL 20)24(JUL 19)24(JUL 18) Cl 100(JUL 21)100(JUL 20)97(JUL 19)97(JUL 18) Cr 1.04(JUL 21)1.08(JUL 20)1.26(JUL 19)H 1.42(JUL 18) BUN 12(JUL 21)10(JUL 20)13(JUL 19)14(JUL 18) Glucose Random H 151(JUL 21)H 154(JUL 20)H 193(JUL 19)H 204(JUL 18) Ca L 8.4(JUL 21)8.6(JUL 20)8.6(JUL 19)9.0(JUL 18) PT H 15.5(JUL 18) INR H 1.22(JUL 18) PTT 32.1(JUL 18) Troponin <0.02(JUL 18) Total CK 102(JUL 18) CULTURES: DATE/SOURCE/RESULT/ SENSITIVITIES coag negative staph MRSE IMAGING: Scheduled Meds (7): 07/22/17 docusate (Colace 100 mg oral capsule) 100 mg PO BID 07/19/17 enalapril 10 mg PO Bedtime 07/20/17 enoxaparin (Lovenox) 40 mg SUB-Q [id number] 07/19/17 latanoprost ophthalmic 1 drp BOTH EYES QPM 07/20/17 non-formulary (Finasteride 1mg po daily-Pt's own med) 1 mg PO Daily 07/20/17 tamsulosin (Flomax) 0.4 mg PO Daily 07/20/17 vancomycin + Sodium Chloride 0.9% IV 250 mL 1,500 mg IVPB [id number] 166.67 ml/hr Extracted from: Title: Clinical Document Author: Gallo Kan MD Date: 07/21/17 [facility] INFECTIOUS DISEASE CONSULTATION NOTE GALOL KAN M.D. REQUESTING PHYSICIAN: Dr Bradley REASON [...] extraction, insertion of intraocular lens and trabeculectomy Alcohol Details: Current, Last use: 4 times a year. Tobacco Details: Use: Former smoker. Tobacco smoke exposure: None. Did the Patient Smoke Cigarettes Anytime During the Last 365 Days? No. Cessation Counseling Provided? No. FH Father: Prediabetes.. Brother: Kidney stone..; Type 2 diabetes mellitus Grandparent: Type 2 diabetes mellitus ALLERGIES: Allergies (1) ActiveReaction sulfa drugsNone documented REVIEW OF SYSTEMS: CONSTITUTIONAL: Denies fever, [...] PSYCH: No depression or anxiety PHYSICAL EXAMINATION: VitalsTmp(F)[id number] 07/21 11:4798.753716/299287--- 07/21 07:4297.723696/330786--- 07/21 04:4698.048137/127254--- 07/21 00:1998.237294/925503--- 07/20 19:25942.360416/733245--- 24 Hr Tmax: 100.4F (38.00c) at 07/20 19:26Vital Signs are the last 5 in the [...] thanks for involving us the care Extracted from: Title: Clinical Document Author: Cheng Terrazas MD Date: 07/19/17 full H&P dictated, #[id number] date/time: 07/19/2017 03:34
--- OUTSIDE RECORDS SUMMARY | 2018-11-30 11:27 | XMS REPORT ---
Author Author [facility] Address Unknown Phone Unavailable Care Team Providers Care Yard Hand Name Role Phone ANGELI LEONE Unavailable Unavailable BARRERA PERALTA Unavailable Unavailable Problems This patient has no known problems. Allergies, Adverse Reactions, Alerts This patient has no known allergies or adverse reactions. Medications This patient has no known medications. Results Test Description Test Time Test Comments Text Results Atomic Results Result Comments CHEST 2 VIEWS 2018-11-24 13:39:00 [place] [address] Patient Name: JUVENCIO ZHOU MR #: [id number] : 1945 Age/Sex: 73/M Req #: [id number] Adm Physician: Ordered by: ANGELI LEONE MD Report #: [id number] Location: OR Room/Bed: Procedure: [id number] DX/CHEST 2 VIEWS Exam Date: Exam Time: REPORT STATUS: Signed EXAMINATION: CHEST 2 VIEWS INDICATION: Preoperative COMPARISON: Chest x-ray of 10/16/2016 FINDINGS: TUBES and LINES: None. LUNGS: The lung volumes are normal. No focal consolidation or pulmonary edema. PLEURA: No pleural effusion or pneumothorax. HEART AND MEDIASTINUM: The cardiomediastinal silhouette is normal in size and contour. BONES AND SOFT TISSUES: No acute fracture or dislocation. UPPER ABDOMEN: No free air under the diaphragm. IMPRESSION: No focal pneumonia or pulmonary edema. Signed by: Fan Joe MD on 11/24/2018 1:39 PM Dictated By: FAN JOE MD 38 Transcribed By: DANN on 11/24/181338 COPY TO: ANGELI LEONE MD URINE CULTURE 2017-11-22 07:35:00 CULTURE (BEAKER) (test jsdt=2793) ESCHERICHIA COLI >100,000 col/mL Escherichia coli Amikacin (test code=1) Ampicillin + Sulbactam (test code=6) Aztreonam (test code=32) Cefepime (test code=51) Cefoxitin (test code=68) Ceftazidime (test code=27) Ceftriaxone (test code=52) Ertapenem (test code=38) Gentamicin (test code=18) Levofloxacin (test code=22) Meropenem (test code=34) Nitrofurantoin (test code=23) Piperacillin + Tazobactam (test code=29) Tetracycline (test code=2) Tobramycin (test code=25) Trimethoprim + Sulfamethoxazole (test code=47) CULTURE (BEAKER) (test hwvg=5973) >100,000 col/mL Bhavna parapsilosis BASIC METABOLIC [id number] 15:15:00* Test Item Value Reference Range Comments SODIUM (BEAKER) (test lrlr=166) 130 meq/L 136-145 POTASSIUM (BEAKER) (test lbjd=036) 4.4 meq/L 3.5-5.1 CHLORIDE (BEAKER) (test wofh=545) 99 meq/L 98-107 CO2 (BEAKER) (test thbf=272) 23 meq/L 22-29 BLOOD UREA NITROGEN (BEAKER) (test yuva=435) 20 mg/dL 7-21 CREATININE (BEAKER) (test wurb=043) 1.43 mg/dL 0.57-1.25 GLUCOSE RANDOM (BEAKER) (test grex=030) 266 mg/dL 70-105 CALCIUM (BEAKER) (test zwwa=877) 9.9 mg/dL 8.4-10.2 EGFR (BEAKER) (test zwul=3942) 49 mL/min/1.73 sq m ESTIMATED GFR IS NOT ACCURATE CREATININE CLEARANCE IN PREDICTING GLOMERULAR FILTRATION RATE. ESTIMATED GFR IS NOT APPLICABLE FOR DIALYSIS PATIENTS. CBC W/PLT COUNT & AUTO [id number] 14:54:00* Test Item Value Reference Range Comments WHITE BLOOD CELL COUNT (BEAKER) (test wdir=314) 8.9 K/ L 3.5-10.5 RED BLOOD CELL COUNT (BEAKER) (test boih=232) 4.26 M/ L 4.63-6.08 HEMOGLOBIN (BEAKER) (test vcgm=885) 13.6 GM/DL 13.7-17.5 HEMATOCRIT (BEAKER) (test jkaq=947) 39.7 % 40.1-51.0 MEAN CORPUSCULAR VOLUME (BEAKER) (test zjks=205) 93.2 fL 79.0-92.2 MEAN CORPUSCULAR HEMOGLOBIN (BEAKER) (test cmpi=473) 31.9 pg 25.7-32.2 MEAN CORPUSCULAR HEMOGLOBIN CONC (BEAKER) (test vtfu=472) 34.3 GM/DL 32.3-36.5 RED CELL DISTRIBUTION WIDTH (BEAKER) (test gwff=892) 13.6 % 11.6-14.4 PLATELET COUNT (BEAKER) (test pejk=016) 215 K/CU MM 150-450 MEAN PLATELET VOLUME (BEAKER) (test mjcb=837) 9.8 fL 9.4-12.4 NUCLEATED RED BLOOD CELLS (BEAKER) (test ydqm=972) 0 /100 WBC 0-0 NEUTROPHILS RELATIVE PERCENT (BEAKER) (test sdhv=464) 66 % LYMPHOCYTES RELATIVE PERCENT (BEAKER) (test kshk=337) 22 % MONOCYTES RELATIVE PERCENT (BEAKER) (test bcvd=257) 10 % EOSINOPHILS RELATIVE PERCENT (BEAKER) (test shav=480) 1 % BASOPHILS RELATIVE PERCENT (BEAKER) (test mgcc=601) 1 % NEUTROPHILS ABSOLUTE COUNT (BEAKER) (test jnsf=179) 5.84 K/ L 1.78-5.38 LYMPHOCYTES ABSOLUTE COUNT (BEAKER) (test mvwv=223) 1.99 K/ L 1.32-3.57 MONOCYTES ABSOLUTE COUNT (BEAKER) (test oudc=517) 0.88 K/ L 0.30-0.82 EOSINOPHILS ABSOLUTE COUNT (BEAKER) (test jqzz=091) 0.10 K/ L 0.04-0.54 BASOPHILS ABSOLUTE COUNT (BEAKER) (test gpqi=115) 0.05 K/ L 0.01-0.08 IMMATURE GRANULOCYTES-RELATIVE PERCENT (fitkitAKER) (test rckz=9159) 1 % 0-1
[2018-11-30] MEDS ORDERED: B&O 60MG R/S 60 MG SUPP PR ONE (12:17)
[2018-11-30] MEDS ORDERED: IOPAMIDOL 610MG/1ML 300 MG/ML VIAL IV ONE ×2 (12:17→14:14)
[2018-11-30] MEDS ORDERED: DIPHENHYDRAMINE HCL 25 MG CAP PO PRN (15:00)
[2018-11-30] MEDS ORDERED: ONDANSETRON HCL INJ 2MG/ML 2ML 2 MG/ML VIAL IV PRN (15:00)
[2018-11-30] MEDS ORDERED: MORPHINE SULFATE 1 MG/ML 30ML PCA IV PRN (15:00)
[2018-11-30] MEDS ORDERED: NALOXONE HCL INJ 0.4 MG/ML AMP IV PRN (15:00)
--- OUTSIDE RECORDS SUMMARY | 2018-11-30 15:26 | XMS REPORT | Clinical Summary ---
Author Author [employer] [facility] [employer] [facility] Address Unknown Phone Unavailable Care Team Providers Care Rigger Supervisor Name Role Phone Pcp, No PCP Unavailable [...] xxxxxxxxxx Medicare B MCR SUPPLEMENT/INDIVIDUAL GENERIC xxxxxxxxxx [employer] [place] MEDICARE SUPPLEMENT
--- OUTSIDE RECORDS SUMMARY | 2018-11-30 15:27 | XMS REPORT | Continuity of Care Document ---
Author Author Narvar Address Unknown Phone Unavailable Care Team Providers Care Digital Production Artist Name Role Phone AiMeiWei Unavailable Unavailable Problems Problem Status Onset Date Classification Date Reported Comments Source DX: N99.114=POSTPROCEDURAL URETHRAL STRI Active 08/26/2017 [facility] Sepsis due to other specified staphylococcus 08/01/2017 10/30/2017 [facility] Urethral stricture, unspecified 07/26/2017 10/23/2017 [facility] FEVER, N/V Active 07/18/2017 [facility] ACUTE LOWER UTI Active 07/18/2017 [facility] UNK Active 06/24/2017 [facility] Benign prostatic hyperplasia with lower urinary tract symptoms 10/23/2017 [facility] Other obstructive and reflux uropathy 10/23/2017 [facility] Calculus in bladder 10/23/2017 [facility] Chronic prostatitis 10/23/2017 [facility] Essential hypertension 10/23/2017 [facility] Type 2 diabetes mellitus without complications 10/23/2017 [facility] Personal history of nicotine dependence 10/30/2017 [facility] long-term use of aspirin 10/23/2017 [facility] Other prison drug therapy 10/23/2017 [facility] Urinary tract infection, site not specified 10/30/2017 [facility] Type 2 diabetes mellitus with diabetic chronic kidney disease 10/30/2017 [facility] Chronic kidney disease, stage 3 10/30/2017 [facility] Benign prostatic hyperplasia without lower urinary tract symptoms 10/30/2017 [facility] Anemia, unspecified 10/30/2017 [facility] Personal history of urinary calculi 10/30/2017 [facility] 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 WASTE: F/P - Black; E - Municipal Trash Bin Inactive 08/29/2017 [facility] Miralax 17 gm, 1 pkt, Route: PO, Drug form: PWDR, ONCE, Dosing Weight 93.182, kg, Start date: 07/24/17 12:25:00 PASTA MAKER, Stop date: 07/24/17 12:25:00 CSTNotes: Dissolve in 8 oz of water or juice. (Same as: Michelle ax) Inactive 07/24/2017 [facility] vancomycin 1.5 g/150 mL-NaCl 0.9% intravenous solution 1.5 gm, IV, Q12H, # 20 bag, 0 Refill(s) No Longer Active 07/23/2017 [facility] enoxaparin 40 mg/0.4 mL subcutaneous solution 40 mg=0.4 mL, SUB-Q, [id number], # 7 syr, 0 Refill(s) No Longer Active 07/23/2017 [facility] Docusate Sodium 100 MG Oral Capsule [Colace] 100 mg=1 cap, PO, BID, # 20 cap, 0 Refill(s), Pharmacy: [facility] 354 Active 07/23/2017 [facility] Docusate Sodium 100 MG Oral Capsule [Colace] 100 mg, 1 cap, Route: PO, BID, Dosing Weight 93.182, kg, Start date: 07/22/17 17:00:00 PASTA MAKER, Duration: 30 day, Stop date: 08/21/17 9:00:00 CDT Inactive 07/22/2017 [facility] Docusate Sodium 100 MG Oral Capsule [Colace] 100 mg, 1 cap, Route: PO, Drug form: CAP, BID, Dosing Weight 93.182, kg, Start date: 07/22/17 11:19:00 PASTA MAKER, Duration: 30 day, Stop date: 08/21/17 9:00:00 CDTNotes: (Same as: Colace) (Do Not Crush) No Longer Active 07/22/2017 [facility] WAIT for vanco trough draw prior to next dose WAIT for vanco trough draw prior to next dose, reminder, Drug form: MISC, Route: MISC, ONCE, 07/21/17 20:30:00 PASTA MAKER, Stop date: 07/21/17 20:30:00 PASTA MAKER Inactive 07/22/2017 [facility] Doxycycline 100 mg, 2 cap, Route: PO, Drug form: CAP, [id number], Dosing Weight 93.182, kg, Start date: 07/21/17 9:00:00 PASTA MAKER, Duration: 14 day, Stop date: 08/03/17 21:00:00 CDTNotes: (Same as: Vibramycin) No milk/ant acids/iron. Take 1 hour before or 2 hours after dairy products Inactive 07/21/2017 [facility] Lovenox 40 mg, 0.4 mL, Route: SUB-Q, Drug form: INJ, [id number], Dosing Weight 93.182, kg, Start date: 07/20/17 11:00:00 PASTA MAKER, Duration: 30 day, Stop date: 08/18/17 11:00:00 CDTNotes: (Same as: Lovenox) No Longer Active 07/20/2017 [facility] Finasteride 1mg po daily-Pt's own med Finasteride 1mg po daily-Pt's own med, 1 mg, Drug form: MISC, Route: PO, Daily, 07/20/17 9:00:00 PASTA MAKER, Duration: 30 day, Stop date: 08/18/17 21:00:00 CDT No Longer Active 07/20/2017 [facility] Flomax 0.4 mg, 1 cap, Route: PO, Drug form: CAP, Daily, Dosing Weight 93.182, kg, Start date: 07/20/17 9:00:00 PASTA MAKER, Duration: 30 day, Stop date: 08/18/17 9:00:00 CDTNotes: (Same As: Flomax) "Do Not Crush" No Longer Active 07/20/2017 [facility] Vancomycin 1,500 mg, Route: IVPB, [id number], Dosing Weight 93.182, kg, Start date: 07/20/17 9:00:00 PASTA MAKER, Duration: 7 day, Stop date: 07/26/17 21:00:00 PASTA MAKER, ABX Indication: BacteremiaNotes: TIME CRITICAL MEDICATION (Same As: Vancocin) Infusion rate 2001 mg: infuse over 2.5 hours For adult patients only: Round to nearest 250 mg per Medical Staff approval MEDICATION WASTE Product Size: 1000 mg Product Wasted: ___ mg No Longer Active 07/20/2017 [facility] Finasteride 1 mg, Route: PO, Drug form: TAB, Daily, Dosing Weight 93.182, kg, Start date: 07/20/17 9:00:00 PASTA MAKER, Duration: 30 day, Stop date: 08/18/17 9:00:00 CDT No Longer Active 07/20/2017 [facility] enalapril 10 mg, 1 tab, Route: PO, Drug form: TAB, Daily, Dosing Weight 93.182, kg, Start date: 07/20/17 9:00:00 PASTA MAKER, Duration: 30 day, Stop date: 08/18/17 9:00:00 CDTNotes: (Same as: Vasotec) No Longer Active 07/20/2017 [facility] Levsin SL 0.125 mg, Route: SL, Drug form: TAB, Q4H, Dosing Weight 93.182, kg, PRN Bladder Spasm, Priority: NOW, Start date: 07/19/17 22:34:00 PASTA MAKER, Duration: 30 day, Stop date: 08/18/17 22:33:00 CDT Inactive 07/20/2017 [facility] enalapril 10 mg, 1 tab, Route: PO, Drug form: TAB, Bedtime, Dosing Weight 93.182, kg, Priority: NOW, Start date: 07/19/17 22:11:00 PASTA MAKER, Duration: 30 day, Stop date: 08/18/17 21:00:00 CDTNotes: (Same as: Vasotec) No Longer Active 07/20/2017 [facility] latanoprost 1 drp, Route: BOTH EYES, QPM, Drug form: SOLN, Start date: 07/19/17 17:00:00 PASTA MAKER, Duration: 30 day, Stop date: 08/17/17 21:00:00 CDTNotes: Keep refrigerated. (Same as:Xalatan) Opened bottle may be s tored at room temperature for 6 weeks No Longer Active 07/19/2017 [facility] Rocephin 1 gm, Route: IVP, Drug form: PDR/INJ, Q12H, Dosing Weight 93.182, kg, Start date: 07/19/17 16:00:00 PASTA MAKER, Duration: 3 day, Stop date: 07/22/17 4:00:00 PASTA MAKER, ABX Indication: Urinary Tract InfectionNotes: (Same As: Rocephin). Use with 100 mL NS and infuse over 30 min MEDICATION WASTE Product Size: 1000 mg Product Wasted: ___ mg No Longer Active 07/19/2017 [facility] Aspirin 81 mg, 1 tab, Route: PO, Drug form: CHEWTAB, Daily, Dosing Weight 93.182, kg, Start date: 07/19/17 10:00:00 PASTA MAKER, Duration: 30 day, Stop date: 08/18/17 9:00:00 CDTNotes: Take with food. No Longer Active 07/19/2017 [facility] Insulin Lispro 1 unit, 0.01 mL, Route: SUB-Q, Drug form: SOLN, TID-Before Meals, Dosing Weight 93.182, kg, PRN Blood Glucose Results, Start date: 07/19/17 9:53:00 PASTA MAKER, Duration: 30 day, Stop date: 08/18/17 9:52:00 CDTNotes: (Same as: Humalog ) Roll in palms of hands gently; Do not shake `vigorously. "Single Patient Use Only " WASTE: F/P - Black; E - Municipal Trash Bin Stable for 28 days at room temperature. Expires in days from Date No Longer Active 07/19/2017 [facility] Glucagon 1 mg, Route: IM, Drug form: PDR/INJ, PRN, Dosing Weight 93.182, kg, PRN Blood Glucose Results, Start date: 07/19/17 9:53:00 PASTA MAKER, Duration: 30 day, Stop date: 08/18/17 10:52:00 CDT No Longer Active 07/19/2017 [facility] Dextrose 50% Syringe 25 gm, 50 mL, Route: IVP, Drug Form: INJ, Dosing Weight 93.182, kg, PRN, PRN Blood Glucose Results, Start date: 07/19/17 9:53:00 PASTA MAKER, Duration: 30 day, Stop date: 08/18/17 10:52:00 CDT No Longer Active 07/19/2017 [facility] Levsin SL 0.125 mg, 1 tab, Route: SL, Drug form: TAB, Q4H, Dosing Weight 93.182, kg, PRN Bladder Spasm, Start date: 07/19/17 9:52:00 PASTA MAKER, Duration: 30 day, Stop date: 08/18/17 9:51:00 CDTNotes: (Same as: Levsin) Take 30 min before meal No Longer Active 07/19/2017 [facility] tramadol hydrochloride 50 MG Oral Tablet 50 mg, 1 tab, Route: PO, Drug form: TAB, Q4H, Dosing Weight 93.182, kg, PRN Pain Score 1-3, Start date: 07/19/17 5:16:00 PASTA MAKER, Duration: 30 day, Stop date: 08/18/17 5:15:00 CDTNotes: Not to exceed 400mg/day. (Same As: Ultram) No Longer Active 07/19/2017 [facility] Aspirin 81 mg, PO, Daily, 0 Refill(s) Active 07/19/2017 [facility] Metformin hydrochloride 1000 MG / sitagliptin 50 MG Oral Tablet 1 tab, PO, BID-Meals, # 90 tab, 1 Refill(s) No Longer Active 07/19/2017 [facility] Ondansetron 4 mg, 2 mL, Route: IVP, Drug form: INJ, Q6H, Dosing Weight 93.182, kg, PRN Nausea & Vomiting, Start date: 07/19/17 3:34:00 PASTA MAKER, Duration: 30 day, Stop date: 08/18/17 3:33:00 CDTNotes: (Same as: Zofran) MEDICATION WASTE Product Size: 4 mg Product Wasted: ___ mg No Longer Active 07/19/2017 [facility] Acetaminophen 325 MG / Hydrocodone Bitartrate 5 MG Oral Tablet 1 tab, Route: PO, Drug Form: TAB, Dosing Weight 93.182, kg, Q4H, PRN Pain Score 4-6, Start date: 07/19/17 3:34:00 PASTA MAKER, Duration: 30 day, Stop date: 08/18/17 3:33:00 CDTNotes: (Same as: Boyd 325/5) Do not exceed 4gm/day of acetaminophen. Inactive 07/19/2017 [facility] Lactated Ringers IV 1,000 mL 1,000 mL, Rate: 75 ml/hr, Infuse over: 13.3 hr, Route: IV, Dosing Weight 93.182 kg, Total Volume: 1,000, Start date: 07/19/17 3:34:00 PASTA MAKER, Duration: 30 day, Stop date: 08/18/17 3:33:00 CDT, 2.24, m2 No Longer Active 07/19/2017 [facility] Saline Flush 0.9% 10 ml, Route: IVP, Drug Form: INJ, Dosing Weight 93.182, kg, PRN, PRN Line Flush, Start date: 07/19/17 3:34:00 PASTA MAKER, Duration: 30 day, Stop date: 08/18/17 4:33:00 CDTNotes: (Same as: BD Posiflush) No Longer Active 07/19/2017 [facility] Rocephin 1 gm, Route: IVPB, Drug form: PDR/INJ, ONCE, Dosing Weight 93.182, kg, Priority: STAT, Start date: 07/19/17 2:23:00 PASTA MAKER, Stop date: 07/19/17 2:23:00 PASTA MAKER, ABX Indication: Urinary Tract Infection Inactive 07/19/2017 [facility] Saline Flush 0.9% 10 mL, Route: IVP, Drug Form: INJ, Dosing Weight 93.182, kg, PRN, PRN Line Flush, Start date: 07/18/17 21:33:00 PASTA MAKER, Duration: 30 day, Stop date: 08/17/17 22:32:00 CDTNotes: (Same as: BD Posiflush) No Longer Active 07/19/2017 [facility] Oxycodone Hydrochloride 5 MG Oral Tablet 10 mg, Route: PO, Drug form: TAB, ONCE, Dosing Weight 93.182, kg, PRN Pain Score 7-10, Start date: 07/17/17 15:57:00 PASTA MAKER Inactive 07/17/2017 [facility] Fentanyl 25 microgram, Route: IVP, Q5Min, Dosing Weight 93.182, kg, PRN Pain Score 4-6, Priority: Routine, Start date: 07/17/17 15:20:00 PASTA MAKER, Duration: 4 doses or times, Stop date: Limited # of times Inactive 07/17/2017 [facility] esmolol 10 mg, Route: IVP, Q5Min, Dosing Weight 93.182, kg, PRN Other -See Comment, Start date: 07/17/17 15:20:00 PASTA MAKER, Duration: 5 doses or times, Stop date: Limited # of times Inactive 07/17/2017 [facility] Hydralazine 10 mg, Route: IVP, Q20Min, Dosing Weight 93.182, kg, PRN Elevated BP, Start date: 07/17/17 15:20:00 PASTA MAKER, Duration: 2 doses or times, Stop date: Limited # of times Inactive 07/17/2017 [facility] Labetalol 10 mg, Route: IVP, Q5Min, Dosing Weight 93.182, kg, PRN Elevated BP, Start date: 07/17/17 15:20:00 PASTA MAKER, Duration: 5 doses or times, Stop date: Limited # of times Inactive 07/17/2017 [facility] Meperidine 12.5 mg, Route: IVP, Q30Min, Dosing Weight 93.182, kg, PRN Other -See Comment, For shivering, Start date: 07/17/17 15:20:00 PASTA MAKER, Duration: 2 doses or times, Stop date: Limited # of times Inactive 07/17/2017 [facility] Ondansetron 4 mg, Route: IVP, ONCE, Dosing Weight 93.182, kg, PRN Nausea & Vomiting, Start date: 07/17/17 15:20:00 PASTA MAKER Inactive 07/17/2017 [facility] Promethazine 6.25 mg, Route: IVPB, ONCE, Dosing Weight 93.182, kg, PRN Nausea & Vomiting, Start date: 07/17/17 15:20:00 PASTA MAKER Inactive 07/17/2017 [facility] Flumazenil 0.2 mg, Route: IVP, PRN, Dosing Weight 93.182, kg, PRN Benzodiazepine Reversal, Initial dose, Start date: 07/17/17 15:20:00 PASTA MAKER, Duration: 30 day, Stop date: 08/16/17 16:19:00 CDT Inactive 07/17/2017 [facility] Naloxone 0.4 mg, Route: IVP, Q2MIN, Dosing Weight 93.182, kg, PRN Narcotic Reversal, Start date: 07/17/17 15:20:00 PASTA MAKER, Duration: 8 doses or times, Stop date: Limited # of times Inactive 07/17/2017 [facility] Albuterol 0.83 MG/ML Inhalant Solution 2.49 mg, Route: NEB, Q20Min, Dosing Weight 93.182, kg, PRN Wheezing, Priority: STAT, Start date: 07/17/17 15:20:00 PASTA MAKER, Duration: 30 day, Stop date: 08/16/17 16:19:00 CDT Inactive 07/17/2017 [facility] Diphenhydramine 12.5 mg, Route: IVP, Drug form: INJ, Q6H, Dosing Weight 93.182, kg, PRN Itching, Start date: 07/17/17 15:20:00 PASTA MAKER, Duration: 30 day, Stop date: 08/16/17 15:19:00 CDT Inactive 07/17/2017 [facility] Calcium Chloride 0.0014 MEQ/ML / Potassium Chloride 0.004 MEQ/ML / Sodium Chloride 0.103 MEQ/ML / Sodium Lactate 0.028 MEQ/ML Injectable Solution 1,000 mL, Rate: 125 ml/hr, Infuse over: 8 hr, Route: IV, Dosing Weight 93.182 kg, Total Volume: 1,000, Start date: 07/17/17 15:20:00 PASTA MAKER, Duration: 30 day, Stop date: 08/16/17 15:19:00 CDT, 2.24, m2 Inactive 07/17/2017 [facility] ondansetron (ANES) Route: IV, Drug form: INJ, ONCE, Stop date: 07/17/17 15:04:00 PASTA MAKER Inactive 07/17/2017 [facility] fentaNYL (ANES) Route: IV, Drug form: INJ, ONCE, Stop date: 07/17/17 14:38:00 PASTA MAKER Inactive 07/17/2017 [facility] lidocaine (ANES) Route: IV, Drug form: INJ, ONCE, Stop date: 07/17/17 14:38:00 PASTA MAKER Inactive 07/17/2017 [facility] propofol (ANES) Route: IV, Drug form: INJ, ONCE, Stop date: 07/17/17 14:38:00 PASTA MAKER Inactive 07/17/2017 [facility] ciprofloxacin (ANES) Route: IV, Drug form: INJ, ONCE, Stop date: 07/17/17 14:38:00 PASTA MAKER Inactive 07/17/2017 [facility] Lactated Ringers Injection IV (ANES) 1000 mL Route: IV, Total Volume: 1,000, Start date: 07/17/17 13:44:00 PASTA MAKER, Stop date: 07/17/17 14:44:00 PASTA MAKER Inactive 07/17/2017 [facility] Hyoscyamine Sulfate 0.125 MG Sublingual Tablet [Levsin] 0.125 mg=1 tab, SL, Q4H, PRN Bladder Spasm, # 40 tab, 1 Refill(s) Active 07/17/2017 [facility] tramadol hydrochloride 50 MG Oral Tablet 50 mg=1 tab, PO, Q8H, PRN Pain, X 20 day, # 30 tab, 0 Refill(s) No Longer Active 07/17/2017 [facility] Ciprofloxacin 500 MG Oral Tablet [Cipro] 500 mg=1 tab, PO, Q12H, for UTI, X 3 day, # 6 tab, 0 Refill(s) No Longer Active 07/17/2017 [facility] Albuterol 0.833 MG/ML / Ipratropium Fannin 0.167 MG/ML Inhalant Solution 3 mL, Route: NEB, Drug Form: SOLN, Dosing Weight 93.182, kg, ONCE, STAT, Start date: 07/17/17 9:20:00 PASTA MAKER, Stop date: 07/17/17 9:20:00 CSTNotes: (Same as: Erikab) No Longer Active 07/17/2017 [facility] Calcium Chloride 0.0014 MEQ/ML / Potassium Chloride 0.004 MEQ/ML / Sodium Chloride 0.103 MEQ/ML / Sodium Lactate 0.028 MEQ/ML Injectable Solution 1,000 mL, Rate: 25 ml/hr, Infuse over: 40 hr, Route: IV, Dosing Weight 93.182 kg, Total Volume: 1,000, Start date: 07/17/17 9:20:00 PASTA MAKER, Duration: 30 day, Stop date: 08/16/17 9:19:00 CDT, 2.24, m2 Inactive 07/17/2017 [facility] latanoprost 1 drp, QPM, 0 Refill(s) Active 07/09/2017 [facility] Aspirin 81 MG Enteric Coated Tablet 81 mg=1 tab, PO, Daily, last dose 07/09/17, # 90 tab, 3 Refill(s) No Longer Active 07/09/2017 [facility] finasteride 1 mg oral tablet 1 mg=1 tab, PO, Daily, # 30 tab, 0 Refill(s) Active 07/09/2017 [facility] Tamsulosin hydrochloride 0.4 MG Oral Capsule [Flomax] 0.4 mg=1 cap, PO, Daily, # 30 cap, 0 Refill(s) Active 07/09/2017 [facility] enalapril 10 mg oral tablet 10 mg=1 tab, PO, Daily, # 30 tab, 0 Refill(s) Active 07/09/2017 [facility] 24 HR Metformin hydrochloride 1000 MG / sitagliptin 100 MG Extended Release Tablet [Janumet 100/1000] 1 tab, PO, BID, # 30 tab, 0 Refill(s) Active 07/09/2017 [facility] Allergies, Adverse Reactions, Alerts Substance Category Reaction Severity Reaction type Status Date Reported Comments Source sulfa drugs Assertion Drug allergy Active [facility] Immunizations No Data Provided for This Section Results Order Name Results Value Reference Range Date Interpretation Comments Source TOXICOLOGY Vanco Tr TND 21:00 07/22/2017 [facility] TOXICOLOGY Vanco Tr 13.3 07/22/2017 [facility] ELECTROLYTES AGAP 13.3 10.0 - 20.0 07/21/2017 [facility] ELECTROLYTES Calcium Lvl 8.4 8.5 - 10.5 07/21/2017 [facility] ELECTROLYTES Potassium Lvl 4.3 3.5 - 5.1 07/21/2017 [facility] ELECTROLYTES Sodium Lvl 136 135 - 145 07/21/2017 [facility] ELECTROLYTES Creatinine Lvl 1.04 0.50 - 1.40 07/21/2017 [facility] ELECTROLYTES CO2 27 24 - 32 07/21/2017 [facility] ELECTROLYTES Chloride Lvl 100 95 - 109 07/21/2017 [facility] ELECTROLYTES eGFR 73 07/21/2017 Result Comment: [...] should be multiplied by the estimated BMI. [facility] ELECTROLYTES BUN 12 7 - 22 07/21/2017 [facility] ELECTROLYTES Glucose Lvl 151 70 - 99 07/21/2017 [facility] Platelet 176 133 - 450 07/21/2017 [facility] MPV 8.3 7.4 - 10.4 07/21/2017 [facility] MCHC 34.9 32.0 - 36.0 07/21/2017 [facility] MCH 32.7 27.0 - 31.0 07/21/2017 [facility] RDW 13.3 11.5 - 14.5 07/21/2017 [facility] Hct 37.7 42.0 - 54.0 07/21/2017 [facility] WBC 11.4 3.7 - 10.4 07/21/2017 [facility] Hgb 13.2 14.0 - 18.0 07/21/2017 [facility] MCV 93.6 80.0 - 94.0 07/21/2017 [facility] RBC 4.03 4.70 - 6.10 07/21/2017 [facility] Monocytes # 1.8 0.0 - 0.8 07/21/2017 [facility] Lymphocytes # 2.1 1.0 - 5.5 07/21/2017 [facility] Eosinophils # 0.2 0.0 - 0.5 07/21/2017 [facility] Basophils # 0.1 0.0 - 0.2 07/21/2017 [facility] Segs 63.9 45.0 - 75.0 07/21/2017 [facility] Monocytes 15.7 2.0 - 12.0 07/21/2017 [facility] Lymphocytes 18.6 20.0 - 40.0 07/21/2017 [facility] Eosinophils 1.3 0.0 - 4.0 07/21/2017 [facility] Basophils 0.5 0.0 - 1.0 07/21/2017 [facility] Segs-Bands # 7.3 1.5 - 8.1 07/21/2017 [facility] CHEM PANEL Lactic Acid Lvl 1.1 0.5 - 2.2 07/20/2017 [facility] CHEM PANEL eGFR 70 07/20/2017 Result [...] should be multiplied by the estimated BMI. [facility] CHEM PANEL Creatinine Lvl 1.08 0.50 - 1.40 07/20/2017 [facility] CHEM PANEL Sodium Lvl 135 135 - 145 07/20/2017 [facility] CHEM PANEL Potassium Lvl 4.2 3.5 - 5.1 07/20/2017 [facility] CHEM PANEL BUN 10 7 - 22 07/20/2017 [facility] CHEM PANEL Glucose Lvl 154 70 - 99 07/20/2017 [facility] CHEM PANEL Calcium Lvl 8.6 8.5 - 10.5 07/20/2017 [facility] CHEM PANEL CO2 25 24 - 32 07/20/2017 [facility] CHEM PANEL Chloride Lvl 100 95 - 109 07/20/2017 [facility] CHEM PANEL AGAP 14.2 10.0 - 20.0 07/20/2017 [facility] HEMATOLOGY Eosinophils 0.6 0.0 - 4.0 07/20/2017 [facility] HEMATOLOGY Monocytes 14.0 2.0 - 12.0 07/20/2017 [facility] HEMATOLOGY Lymphocytes 14.2 20.0 - 40.0 07/20/2017 [facility] HEMATOLOGY Monocytes # 1.8 0.0 - 0.8 07/20/2017 [facility] HEMATOLOGY Eosinophils # 0.1 0.0 - 0.5 07/20/2017 [facility] HEMATOLOGY Segs 70.9 45.0 - 75.0 07/20/2017 [facility] Lymphocytes # 1.8 1.0 - 5.5 07/20/2017 [facility] Segs-Bands # 9.1 1.5 - 8.1 07/20/2017 [facility] HEMATOLOGY Basophils 0.3 0.0 - 1.0 07/20/2017 [facility] MCHC 35.0 32.0 - 36.0 07/20/2017 [facility] MCH 32.9 27.0 - 31.0 07/20/2017 [facility] HEMATOLOGY RDW 13.9 11.5 - 14.5 07/20/2017 [facility] MCV 94.1 80.0 - 94.0 07/20/2017 [facility] WBC 12.8 3.7 - 10.4 07/20/2017 [facility] Hgb 13.6 14.0 - 18.0 07/20/2017 [facility] RBC 4.12 4.70 - 6.10 07/20/2017 [facility] MPV 8.4 7.4 - 10.4 07/20/2017 [facility] Platelet 161 133 - 450 07/20/2017 [facility] Hct 38.8 42.0 - 54.0 07/20/2017 [facility] CHEM PANEL eGFR 58 07/19/2017 Result [...] should be multiplied by the estimated BMI. [facility] CHEM PANEL Calcium Lvl 8.6 8.5 - 10.5 07/19/2017 [facility] CHEM PANEL CO2 24 24 - 32 07/19/2017 [facility] CHEM PANEL Chloride Lvl 97 95 - 109 07/19/2017 [facility] CHEM PANEL Potassium Lvl 3.7 3.5 - 5.1 07/19/2017 [facility] CHEM PANEL Sodium Lvl 133 135 - 145 07/19/2017 [facility] CHEM PANEL BUN 13 7 - 22 07/19/2017 [facility] CHEM PANEL Glucose Lvl 193 70 - 99 07/19/2017 [facility] CHEM PANEL Creatinine Lvl 1.26 0.50 - 1.40 07/19/2017 [facility] CHEM PANEL AGAP 15.7 10.0 - 20.0 07/19/2017 [facility] Platelet 160 133 - 450 07/19/2017 [facility] MPV 7.9 7.4 - 10.4 07/19/2017 [facility] RDW 13.3 11.5 - 14.5 07/19/2017 [facility] WBC 13.6 3.7 - 10.4 07/19/2017 [facility] MCV 93.0 80.0 - 94.0 07/19/2017 [facility] MCHC 35.1 32.0 - 36.0 07/19/2017 [facility] RBC 4.06 4.70 - 6.10 07/19/2017 [facility] Hgb 13.2 14.0 - 18.0 07/19/2017 [facility] Hct 37.7 42.0 - 54.0 07/19/2017 [facility] MCH 32.7 27.0 - 31.0 07/19/2017 [facility] Eosinophils 0.5 0.0 - 4.0 07/19/2017 [facility] Basophils 0.5 0.0 - 1.0 07/19/2017 [facility] Segs 75.6 45.0 - 75.0 07/19/2017 [facility] Lymphocytes 9.4 20.0 - 40.0 07/19/2017 [facility] Monocytes 14.0 2.0 - 12.0 07/19/2017 [facility] Eosinophils # 0.1 0.0 - 0.5 07/19/2017 [facility] Basophils # 0.1 0.0 - 0.2 07/19/2017 [facility] Segs-Bands # 10.3 1.5 - 8.1 07/19/2017 [facility] Lymphocytes # 1.3 1.0 - 5.5 07/19/2017 [facility] Monocytes # 1.9 0.0 - 0.8 07/19/2017 [facility] CHEM PANEL Lactic Acid Lvl 2.1 0.5 - 2.2 07/19/2017 [facility] URINE AND STOOL UA Urobilinogen <=1.0 mg/dL 0.1 - 1.0 07/19/2017 [facility] URINE AND STOOL UA Protein 100 mg/dL Negative mg/dL 07/19/2017 [facility] URINE AND STOOL UA pH 5.0 5.0 - 8.0 07/19/2017 [facility] URINE AND STOOL UA Turbidity Marked *ABN* (07/18/17 9:57 PM) Clear 07/19/2017 [facility] URINE AND STOOL UA Spec Grav 1.013 <=1.030 07/19/2017 [facility] URINE AND STOOL UA Bacteria Few /HPF None Seen /HPF 07/19/2017 [facility] URINE AND STOOL UA Mucus Few /LPF None Seen /LPF 07/19/2017 [facility] URINE AND STOOL UA RBC 163 0 - 2 07/19/2017 [facility] URINE AND STOOL UA Sq Epi Occasional /LPF Few /LPF 07/19/2017 [facility] URINE AND STOOL UA WBC 151 0 - 5 07/19/2017 [facility] URINE AND STOOL UA Bili Negative *NA* (07/18/17 9:57 PM) Negative 07/19/2017 [facility] URINE AND STOOL UA Ketones Trace mg/dL Negative mg/dL 07/19/2017 [facility] URINE AND STOOL UA Color Yellow *NA* (07/18/17 9:57 PM) Yellow 07/19/2017 [facility] URINE AND STOOL UA Blood Large *ABN* (07/18/17 9:57 PM) Negative 07/19/2017 [facility] URINE AND STOOL UA Nitrite Negative (07/18/17 9:57 PM) Negative 07/19/2017 [facility] URINE AND STOOL UA Leuk Est Large *ABN* (07/18/17 9:57 PM) Negative 07/19/2017 [facility] URINE AND STOOL UA Glucose 500 mg/dL Negative mg/dL 07/19/2017 [facility] CARDIAC ENZYMES Total CK 102 12 - 191 07/19/2017 [facility] CARDIAC ENZYMES Troponin-I <0.02 0.00 - 0.40 07/19/2017 [facility] CHEM PANEL Total Protein 7.4 6.4 - 8.4 07/19/2017 [facility] CHEM PANEL Albumin Lvl 3.9 3.5 - 5.0 07/19/2017 [facility] CHEM PANEL Alk Phos 49 39 - 136 07/19/2017 [facility] CHEM PANEL Bili Total 1.2 0.2 - 1.3 07/19/2017 [facility] CHEM PANEL ALT 28 0 - 65 07/19/2017 [facility] CHEM PANEL AST 15 0 - 37 07/19/2017 [facility] CHEM PANEL B/C Ratio 10 6 - 25 07/19/2017 [facility] CHEM PANEL A/G Ratio 1.1 0.7 - 1.6 07/19/2017 [facility] CHEM PANEL Globulin 3.5 2.7 - 4.2 07/19/2017 [facility] CHEM PANEL Lactic Acid Lvl 3.9 0.5 - 2.2 07/19/2017 [facility] CHEM PANEL Procalcitonin Lvl 0.14 0.00 - 0.10 07/19/2017 [facility] HEMATOLOGY INR 1.22 0.85 - 1.17 07/19/2017 [facility] HEMATOLOGY PT 15.5 12.0 - 14.7 07/19/2017 [facility] HEMATOLOGY PTT 32.1 22.9 - 35.8 07/19/2017 [facility] [place] Vancomycin Resistance Not Detected (07/18/17 9:54 PM) Not Detected 07/19/2017 [facility] S. anginosus grp Not Detected (07/18/17 9:54 PM) Not Detected 07/19/2017 [facility] DIAGNOSTIC S. lugdunensis Not Detected (07/18/17 9:54 PM) Not Detected 07/19/2017 [facility] DIAGNOSTIC E. faecalis Not Detected (07/18/17 9:54 PM) Not Detected 07/19/2017 [facility] DIAGNOSTIC S. pneumoniae Not Detected (07/18/17 9:54 PM) Not Detected 07/19/2017 [facility] S. agalactiae Not Detected (07/18/17 9:54 PM) Not Detected 07/19/2017 [facility] S. epidermidis Detected *ABN* (07/18/17 9:54 PM) Not Detected 07/19/2017 [facility] DIAGNOSTIC mecA Methicillin Resistance Not Detected (07/18/17 9:54 PM) Not Detected 07/19/2017 [facility] DIAGNOSTIC Listeria spp. Not Detected (07/18/17 9:54 PM) Not Detected 07/19/2017 [facility] DIAGNOSTIC E. faecium Not Detected (07/18/17 9:54 PM) Not Detected 07/19/2017 [facility] DIAGNOSTIC vanB Vancomycin Resistance Not Detected (07/18/17 9:54 PM) Not Detected 07/19/2017 [facility] DIAGNOSTIC S. pyogenes Not Detected (07/18/17 9:54 PM) Not Detected 07/19/2017 [facility] MOLECULAR DIAGNOSTIC Streptococcus spp. Not Detected (07/18/17 9:54 PM) Not Detected 07/19/2017 [facility] DIAGNOSTIC Staphylococcus spp. Detected *ABN* (07/18/17 9:54 PM) Not Detected 07/19/2017 [facility] MOLECULAR DIAGNOSTIC S. aureus Not Detected (07/18/17 9:54 PM) Not Detected 07/19/2017 [facility] ELECTROLYTES AGAP 12.1 10.0 - 20.0 07/09/2017 [facility] ELECTROLYTES eGFR 50 07/09/2017 Result Comment: [...] should be multiplied by the estimated BMI. [facility] ELECTROLYTES CO2 25 24 - 32 07/09/2017 [facility] ELECTROLYTES Calcium Lvl 9.4 8.5 - 10.5 07/09/2017 [facility] ELECTROLYTES BUN 17 7 - 22 07/09/2017 [facility] ELECTROLYTES Sodium Lvl 135 135 - 145 07/09/2017 [facility] ELECTROLYTES Creatinine Lvl 1.42 0.50 - 1.40 07/09/2017 [facility] ELECTROLYTES Glucose Lvl 205 70 - 99 07/09/2017 [facility] ELECTROLYTES Potassium Lvl 4.1 3.5 - 5.1 07/09/2017 [facility] ELECTROLYTES Chloride Lvl 102 95 - 109 07/09/2017 [facility] HEMATOLOGY Monocytes # 1.0 0.0 - 0.8 07/09/2017 [facility] HEMATOLOGY Lymphocytes # 1.8 1.0 - 5.5 07/09/2017 [facility] HEMATOLOGY Eosinophils 0.7 0.0 - 4.0 07/09/2017 [facility] HEMATOLOGY Basophils 0.2 0.0 - 1.0 07/09/2017 [facility] HEMATOLOGY Segs-Bands # 7.4 1.5 - 8.1 07/09/2017 [facility] HEMATOLOGY Eosinophils # 0.1 0.0 - 0.5 07/09/2017 [facility] HEMATOLOGY Segs 72.0 45.0 - 75.0 07/09/2017 [facility] HEMATOLOGY Monocytes 9.8 2.0 - 12.0 07/09/2017 [facility] HEMATOLOGY Lymphocytes 17.3 20.0 - 40.0 07/09/2017 [facility] HEMATOLOGY PTT 30.1 22.9 - 35.8 07/09/2017 [facility] PT 12.4 12.0 - 14.7 07/09/2017 [facility] INR 0.92 0.85 - 1.17 07/09/2017 [facility] MCH 32.9 27.0 - 31.0 07/09/2017 [facility] RDW 13.9 11.5 - 14.5 07/09/2017 [facility] Platelet 239 133 - 450 07/09/2017 [facility] MCHC 34.9 32.0 - 36.0 07/09/2017 [facility] MPV 8.7 7.4 - 10.4 07/09/2017 [facility] Hct 47.1 42.0 - 54.0 07/09/2017 [facility] MCV 94.1 80.0 - 94.0 07/09/2017 [facility] Hgb 16.4 14.0 - 18.0 07/09/2017 [facility] WBC 10.2 3.7 - 10.4 07/09/2017 [facility] RBC 5.00 4.70 - 6.10 07/09/2017 [facility] URINE AND STOOL UA Nitrite Negative (07/09/17 4:22 PM) Negative 07/09/2017 [facility] URINE AND STOOL UA Color Ltyellow 07/09/2017 [facility] URINE AND STOOL UA Urobilinogen <=1.0 mg/dL 0.1 - 1.0 07/09/2017 [facility] URINE AND STOOL UA WBC 3 0 - 5 07/09/2017 [facility] URINE AND STOOL UA RBC 3 0 - 2 07/09/2017 [facility] URINE AND STOOL UA Sq Epi Occasional /LPF Few /LPF 07/09/2017 [facility] URINE AND STOOL UA Leuk Est Trace *ABN* (07/09/17 4:22 PM) Negative 07/09/2017 [facility] URINE AND STOOL UA Protein Negative mg/dL Negative mg/dL 07/09/2017 [facility] URINE AND STOOL UA Glucose 500 mg/dL Negative mg/dL 07/09/2017 [facility] URINE AND STOOL UA Bili Negative *NA* (07/09/17 4:22 PM) Negative 07/09/2017 [facility] URINE AND STOOL UA Blood Small *ABN* (07/09/17 4:22 PM) Negative 07/09/2017 [facility] URINE AND STOOL UA pH 5.0 5.0 - 8.0 07/09/2017 [facility] URINE AND STOOL UA Turbidity Clear (07/09/17 4:22 PM) Clear 07/09/2017 [facility] URINE AND STOOL UA Spec Grav 1.010 <=1.030 07/09/2017 [facility] URINE AND STOOL UA Ketones Negative mg/dL Negative mg/dL 07/09/2017 [facility] Pathology Reports No Data Provided for This Section Diagnostic Reports Report Value Date Source Urethrogram retrograde DX Patient Name: JUVENCIO ZHOU : 1945; Age: 71 years Male MR: [id number] Study: Urethrogram retrograde DX 08/29/2017 9:59 AM [...] of the mid to distal urethra. SL: [id number] 08/29/2017 [facility] Chest 1 v for Placement DX [...] or atelectasis within the left base.. SL: [id number] 07/22/2017 [facility] Chest 1view DX Clinical Indication: Undifferentiated Sepsis Comparison: None FINDINGS: The frontal chest radiograph shows normal lung volumes without interstitial or airspace opacities, pleural effusions or pneumothorax. The cardiomediastinal contours are normal for the age of the patient with aortic tortuosity. There are degenerative changes in the spine and shoulders. IMPRESSION: No chest radiographic evidence of acute cardiopulmonary disease. SL: [id number] 07/18/2017 [facility] Consultation Notes No Data Provided for This Section Discharge Summaries No Data Provided for This Section History and Physicals No Data Provided for This Section Vital Signs Vital Sign Value Date Comments Source Systolic (mm Hg) 120 07/24/2017 [facility] Diastolic (mm Hg) 71 07/24/2017 [facility] Temperature Oral (F) 97.9 F 07/24/2017 [facility] Respitory Rate 18 07/24/2017 [facility] Heart Rate 99 07/24/2017 [facility] Heart Rate 81 07/24/2017 [facility] Systolic (mm Hg) 121 07/24/2017 [facility] Diastolic (mm Hg) 71 07/24/2017 [facility] Temperature Oral (F) 98.2 F 07/24/2017 [facility] Systolic (mm Hg) 116 07/24/2017 [facility] Diastolic (mm Hg) 70 07/24/2017 [facility] Temperature Oral (F) 98.2 F 07/24/2017 [facility] Heart Rate 74 07/24/2017 [facility] Respitory Rate 16 07/24/2017 [facility] Respitory Rate 16 07/24/2017 [facility] Height 193.04 cm 07/19/2017 [facility] Height 193.04 cm 07/19/2017 [facility] BMI Calculated 25.01 07/19/2017 [facility] Weight 93.182 07/19/2017 [facility] Systolic (mm Hg) 157 07/17/2017 [facility] Diastolic (mm Hg) 77 07/17/2017 [facility] Respitory Rate 16 07/17/2017 [facility] Systolic (mm Hg) 141 07/17/2017 [facility] Diastolic (mm Hg) 96 07/17/2017 [facility] Respitory Rate 14 07/17/2017 [facility] Systolic (mm Hg) 139 07/17/2017 [facility] Diastolic (mm Hg) 87 07/17/2017 [facility] Respitory Rate 13 07/17/2017 [facility] Heart Rate 94 07/17/2017 [facility] Temperature Oral (F) 98.1 F 07/09/2017 [facility] Heart Rate 109 07/09/2017 [facility] Weight 93.182 07/09/2017 [facility] BMI Calculated 25.01 07/09/2017 [facility] Height 193.04 cm 07/09/2017 [facility] Encounters Location Location Details Encounter Type Encounter Number Reason For Visit Attending Provider ADM Date DC Date Status Source [id number] 07/17/2017 [facility] In[facility] [id number] [facility] 07/19/2017 07/24/2017 [facility] Out[facility] [id number] [facility] 08/29/2017 08/30/2017 [facility] Procedures Procedure Code Date Perfomer Comments Source Achilles tendon repair [id number] [facility] Cataract extraction, insertion of intraocular lens and trabeculectomy [id number] [facility] Assessment and Plan Assessment and Plan [...] follow up on discharge call Dr Kan [phone] SUBJECTIVE: Seen and examined. Events noted. VITAL [...] Bedtime 07/20/17 enoxaparin (Lovenox) 40 mg SUB-Q [id number] 07/19/17 latanoprost ophthalmic 1 drp BOTH EYES QPM 07/20/17 non-formulary (Finasteride 1mg po daily-Pt's own med) 1 mg PO Daily 07/20/17 tamsulosin (Flomax) 0.4 mg PO Daily 07/20/17 vancomycin + Sodium Chloride 0.9% IV 250 mL 1,500 mg IVPB [id number] 166.67 ml/hr Extracted from:Title: Clinical Document Author: Gallo Kan MD Date: 07/21/17 [facility] INFECTIOUS DISEASE CONSULTATION NOTE GALLO KAN M.D. [...] Terrazas MD Date: 07/19/17 full H&P dictated, #[id number] date/time: 07/19/2017 03:34 07/24/2017 [facility] Plan of Care No Data Provided for This Section Social History Social History Date Source Social History TypeResponse Alcohol Current, Last use: 4 times a year. Smoking Status Former smoker; Exposure to Tobacco Smoke None; Cigarette Smoking Last 365 Days No; Reg Smoking Cessation Counseling No entered on: 07/19/17 07/09/2017 [facility] Family History No Data Provided for This Section Advance Directives No Data Provided for This Section Functional Status No Data Provided for This Section
--- NOTE | 2018-11-30 15:45 | NUR ---
Received patient from PACU via stretcher. AAOX4 to time, person, place, situation. Respirations even and unlabored. On CLINICAL PRACTICE CONSULTANT pump. Suprapubic catheter 22F draining clear yellow urine. 24F catheter noted below scrotum, No urine noted at this time. Oriented patient to room. Instructed to use call light for assistance. Voiced understanding.
[2018-11-30 16:00] VITALS: BP 131/85
[2018-11-30] MEDS ORDERED: VANCOMYCIN 1GM/NS 250 ML 250 ML IV SCH (16:00)
[2018-11-30] MEDS: SOD CHL 0.45%/POT CHL 20MEQ 1,000 ML IV SCH (16:21)
[2018-11-30] MEDS ORDERED: DOCUSATE SODIUM 100 MG CAP PO SCH (17:00)
[2018-11-30 17:34] VITALS: BP 131/85
[2018-11-30] MEDS ORDERED: NON-FORMULARY MEDICATION (Metoprolol Succinate 1 TAB) PO SCH (18:00)
--- NOTE | 2018-11-30 18:30 | NUR ---
Suprapubic catheter 22F draining clear yellow urine. 24F catheter noted below scrotum, scant urine noted.
[2018-11-30] MEDS ORDERED: LIDOCAINE HCL 2% LOCAL INJ 5 ML SDV VIAL INJ ONE (18:50)
[2018-11-30] MEDS ORDERED: PROPOFOL IV EMULSION 10 MG/ML 20 ML VIAL ONE (18:50)
[2018-11-30] MEDS ORDERED: SEVOFLURANE INHAL SOLN 250 ML PEN BTL ONE (18:50)
[2018-11-30] MEDS ORDERED: ONDANSETRON HCL INJ 2MG/ML 2ML 2 MG/ML VIAL ONE (18:50)
[2018-11-30] MEDS ORDERED: ROCURONIUM BROMIDE 10 MG/ML 5ML VIAL ONE (18:50)
[2018-11-30 19:00] VITALS: BP 113/62
--- NOTE | 2018-11-30 19:00 | NUR ---
RECEIVED PATIENT IN REPORT. PATIENT IS RESTING ON SIDE AT THIS TIME, EASILY AROUSED FROM SLEEP. PATIENT REPORTS PAIN IS 6/10, BUT THAT HE IS DOING FINE. CLEAR YELLOW URINE DRAINING FROM SUPRAPUBIC CATHETER. SCANT CLEAR YELLOW URINE DRAINING FROM PERIURETHRAL OSTOMY. SLIGHT SEROSANGUINEOUS DRAINAGE ON BANDAGE. NO S&S OF DISTRESS NOTED. BED LOCKED IN LOWEST POSITION, SIDE RAILS UPX2, CALL LIGHT IN REACH.
[2018-11-30] MEDS ORDERED: FENTANYL CITRATE/PF 100MCG/2 ML INJ ONE (19:06)
[2018-11-30] MEDS ORDERED: MIDAZOLAM HCL 2 MG/2 ML VIAL ONE (19:06)
--- NOTE | 2018-11-30 19:17 | NUR ---
Report given to oncoming nurse of patient's status. AAOX4 to time, person, place, situation. Respirations even and unlabored. Side rails upx2, call light within reach.
[2018-11-30 20:00] VITALS: BP 113/62
[2018-11-30] MEDS: SIMVASTATIN 20 MG TAB PO SCH (21:15)
[2018-11-30] MEDS: LATANOPROST(OPTH) 2.5 ML BTL OP SCH (21:15)
[2018-11-30] MEDS: METOPROLOL SUCCINATE 50 MG TAB XL PO SCH (21:15)
[2018-11-30] MEDS: GENTAMICIN 80MG/NS 100 ML 100 ML IV SCH (21:20)
--- NOTE | 2018-11-30 21:30 | NUR ---
BLADDER IRRIGATION PERFORMED AT THIS TIME, 60 ML. 125 ML OUTPUT FROM PERINEAL URETHROSTOMY 24 F CATHETER. 600 ML OUTPUT FROM SUPRAPUBIC 22 F CATHETER.
--- NOTE | 2018-11-30 21:40 | NUR ---
REMINDED PATIENT OF IMPORTANCE OF REGULAR AND FREQUENT INCENTIVE SPIROMETRY. PATIENT USED IS APPROPRIATELY AT THIS TIME.
[2018-12-01] VITALS (10 sets, daily range): BP systolic 89–140; BP diastolic 54–91
[2018-12-01] MEDS: VANCOMYCIN 1GM/NS 250 ML 250 ML IV SCH ×3 (00:09→23:39)
[2018-12-01] MEDS: SOD CHL 0.45%/POT CHL 20MEQ 1,000 ML IV SCH ×2 (02:14→12:45)
[2018-12-01 05:58] LABS: BASOPHILS # (AUTO) 0.1 (0.0-0.1); BASOPHILS % 0.4 % (0.0-1.0); EOSINOPHILS # (AUTO) 0.3 (0.0-0.4); EOSINOPHILS % 2.2 % (0.0-6.0); HEMATOCRIT 33.7 % (38.2-49.6); HEMOGLOBIN 11.7 g/dL (14.0-18.0); LYMPHOCYTES # (AUTO) 1.3 (1.0-3.2); LYMPHOCYTES % 9.9 % (18.0-39.1); MEAN CORPUSCULAR HEMOGLOBIN 32.8 pg (28-32); MEAN CORPUSCULAR HGB CONC 34.7 g/dL (31-35); MEAN CORPUSCULAR VOLUME 94.4 fL (81-99); MONOCYTES # (AUTO) 1.4 (0.2-0.8); MONOCYTES % 10.9 % (4.4-11.3); NEUTROPHILS # (AUTO) 9.9 (2.1-6.9); NEUTROPHILS % 76.1 % (38.7-80.0); PLATELET COUNT 169 x10e3/uL (140-360); RED BLOOD COUNT 3.57 x10e6/uL (4.3-5.7); RED CELL DISTRIBUTION WIDTH 13.3 % (11.7-14.4)
[2018-12-01 06:10] LABS: ANION GAP 12.8 mmol/L (8-16); BLOOD UREA NITROGEN 13 mg/dL (7-26); BUN/CREATININE RATIO 12 (6-25); CALCIUM 8.6 mg/dL (8.4-10.2); CARBON DIOXIDE 24 mmol/L (22-29); CHLORIDE 102 mmol/L (98-107); CREATININE, SERUM 1.07 mg/dL (0.72-1.25); EST GLOMERULAR FILTRATION RATE > 60 ML/MIN (60-); GLUCOSE 155 mg/dL (74-118); POTASSIUM 4.8 mmol/L (3.5-5.1); SODIUM 134 mmol/L (136-145)
[2018-12-01] MEDS: GENTAMICIN 80MG/NS 100 ML 100 ML IV SCH ×3 (06:17→22:15)
[2018-12-01] MEDS: METFORMIN HCL 500 MG TAB PO SCH ×2 (08:24→17:29)
[2018-12-01] MEDS: SITAGLIPTIN 100 MG TAB PO SCH ×2 (08:24→17:29)
[2018-12-01] MEDS: PANTOPRAZOLE SOD 40 MG TABEC PO SCH (08:25)
[2018-12-01] MEDS: ASPIRIN 81 MG CHEW TAB PO SCH (08:25)
[2018-12-01] MEDS: OXYBUTYNIN CHLORIDE XL 5 MG TAB PO SCH (08:25)
[2018-12-01] MEDS: OLMESARTAN 20 MG TAB PO SCH (08:25)
[2018-12-01] MEDS ORDERED: NON-FORMULARY MEDICATION (Sitagliptin Phos/Metformin Hcl (Janumet 50-1,000 Mg Tablet) 1 TA PO SCH (09:00)
--- NOTE | 2018-12-01 09:29 | NUR ---
placed xeroform and drain sponge to groin as ordered. Place catheter plug to cindy urethra ostomy as odered. Simple irrigation performed as ordered.
[2018-12-01] MEDS ORDERED: PROMETHAZINE 25MG/ NS 50ML (IV) IV PRN (09:30)
--- NOTE | 2018-12-01 11:19 | History and Physical ---
REASON FOR ADMISSION: This is a 73-year-old male who came in for postsurgical admission. HISTORY OF PRESENT ILLNESS: This is a 73-year-old male with a history of Garzon esophagus, history of Meniere disease, history of diabetes mellitus, history of hypertension, history of TURP and urethral strictures caused by surgery, comes in for removal of a suprapubic catheter and also an input of a perineal urethrostomy and also the patient has cystoscopy and retrograde pyelogram. Currently, the patient is stable. No chest pain. No shortness of breath. No nausea, vomiting, or diarrhea. No constipation. No rectal bleeding. No hematochezia. MEDICATIONS: He takes at home are: 1. Aspirin 81 mg. 2. Docusate 100 mg two tablets a day. 3. Latanoprost for his glaucoma. 4. Metoprolol 100 mg ER once a day. 5. Losartan 20 mg once a day. 6. Omeprazole 40 mg daily. 7. Oxybutynin 5 mg daily. 8. Simvastatin 20 mg daily. 9. The patient also takes Janumet 51,000 twice a day for his diabetes. PAST MEDICAL HISTORY: As mentioned above. Hypertension, hyperlipidemia, Meniere disease, history of Garzon esophagus, and history of benign prostatic hypertrophy and incontinence. PAST SURGICAL HISTORY: Includes history of ruptured Achilles repair, cataract in the right eye, bladder stones, prostatic TURP and also history of strictures with a suprapubic catheter and yesterday of perineal urethra creation. ALLERGIES: SULFA CAUSES BACK RASH. FAMILY HISTORY: History of hypertension and diabetes in the family. SOCIAL HISTORY: No EtOH. No IV drug abuse. REVIEW OF SYSTEMS: Negative for chest pain. No shortness of breath. No nausea, vomiting, or diarrhea. No constipation. No rectal bleeding. No hematochezia. Positive for suprapubic catheter. PHYSICAL EXAMINATION: GENERAL: The patient is alert and oriented x3. VITAL SIGNS: Temperature is 99.4, pulse of 70, respirations 16, blood pressure is 103/56. HEENT: Normocephalic, atraumatic. Pupils are reactive to light and accommodation. CVS: S1, S2 normal. Regular rate and rhythm. ABDOMEN: Nontender, nondistended. Suprapubic catheter in place. Also in the perineum, there is urethrostomy placed to bandaged. EXTREMITIES: No clubbing, no cyanosis, and trace edema. LABORATORY VALUE: White count is 10,000 yesterday on admission, hemoglobin of 14.3, hematocrit of 39.3. Today's white count is 12.97. Chemistry; sodium 134, potassium of 4.8, creatinine down from 1.48 to 1.07, glucose is 124, ranging up to 170s. Calcium is normal. MICROBIOLOGY: None done. IMAGING STUDIES: Retrograde urethrogram done. ASSESSMENT: 1. A 73-year-old gentleman with a history of urethral stricture, status post suprapubic catheter and now a perineal urethrostomy, cystoscopy and retrograde done. 2. Hypertension. 3. Hyperlipidemia. PLAN: Continue with current pain management. The patient is also on IV vancomycin and gentamicin. We will continue with this. We will also decrease his dose of the Benicar to 10 mg. His blood pressure is running on the lower side. Vancomycin troughs will be done and also the patient will be on insulin sliding scale and also on Accu-Cheks q.6 hours. Restart all home medications, which has been done. Further recommendation as per clinical course and we will continue to monitor the patient with Dr. Wolf. MD GENNY Blackmon/[place]HAM /[id number]
--- NOTE | 2018-12-01 12:00 | NUR ---
Encouraged patient to get up and walk. Educated importance of walking. Voiced understanding and states "At this time, I don't want to get up, maybe later."
--- NOTE | 2018-12-01 14:25 | NUR ---
Visit made by the Spiritual Care Department Pastoral Visitor, Liv Schultz. Pt sleeping soundly and no family present. Pastoral Visitor left a card describing availability of shade matcher and instructions on how to contact a shade matcher. JANIYA ACEVEDO Varnish [facility]ter Spiritual Care Department O: [phone] Pager: [phone] ([phone] number calling from)
--- NOTE | 2018-12-01 17:00 | NUR ---
Patient ambulated from room to nurses station without distress.
[2018-12-01] MEDS: DOCUSATE SODIUM 100 MG CAP PO SCH (17:29)
--- NOTE | 2018-12-01 19:00 | NUR ---
RECEIVED PATIENT IN REPORT. PATIENT RESTING IN BED AT THIS TIME. PAIN REPORTED AT 3/10. NO S&S OF DISTRESS NOTED. SUPRAPUBIC CATHETER DRAINING TO GRAVITY, PERINEAL URERTHROSTOMY CATHETER CLAMPED PER MD ORDERS. SCDS IN PLACE, BED PUMP ACTIVE. L HAND 22G IV ASYMPTOMATIC, INTACT, AND PATENT. BED LOCKED IN LOWEST POSITION, SIDE RAILS UPX2, CALL LIGHT IN REACH.
--- NOTE | 2018-12-01 19:09 | NUR ---
Report given to oncoming nurse of patient's status. Resting in bed. No s/s of acute distress noted.
[2018-12-01] MEDS: METOPROLOL SUCCINATE 50 MG TAB XL PO SCH (21:00)
[2018-12-01] MEDS: LATANOPROST(OPTH) 2.5 ML BTL OP SCH (22:15)
[2018-12-01] MEDS: SIMVASTATIN 20 MG TAB PO SCH (22:15)
--- NOTE | 2018-12-01 22:30 | NUR ---
METOPROLOL HELD AT THIS TIME D/T HR: 64, BP:89/55. PATIENT STATES HE WANTS TO TALK TO HIS INSPECTING SUPERVISOR BECAUSE HE OFTEN HAS LOW BP THAT CAUSES HIM TO STOP ACTIVITIES. SIMPLE BLADDER IRRIGATION PERFORMED TO PERINEAL URETROSTOMY. DRESSING CHANGED. SCANT SEROSANGUINEOUS DRAINAGE NOTED. SCROTUM IS ENLARGED AND PAINFUL WHEN TOUCHED, ESPECIALLY ON THE L SIDE, SOME BRUISING NOTED. OTHERWISE, DRESSING CHANGE TOLERATED WELL.
[2018-12-02] VITALS (8 sets, daily range): BP systolic 97–159; BP diastolic 50–86
[2018-12-02] MEDS: SOD CHL 0.45%/POT CHL 20MEQ 1,000 ML IV SCH ×4 (02:35→22:59)
[2018-12-02] MEDS: GENTAMICIN 80MG/NS 100 ML 100 ML IV SCH ×3 (05:54→21:00)
[2018-12-02 06:15] LABS: BASOPHILS # (AUTO) 0.1 (0.0-0.1); BASOPHILS % 0.5 % (0.0-1.0); EOSINOPHILS # (AUTO) 0.3 (0.0-0.4); EOSINOPHILS % 2.5 % (0.0-6.0); HEMATOCRIT 31.9 % (38.2-49.6); LYMPHOCYTES # (AUTO) 2.2 (1.0-3.2); LYMPHOCYTES % 20.7 % (18.0-39.1); MEAN CORPUSCULAR HEMOGLOBIN 32.6 pg (28-32); MEAN CORPUSCULAR HGB CONC 34.5 g/dL (31-35); MEAN CORPUSCULAR VOLUME 94.7 fL (81-99); MONOCYTES # (AUTO) 1.2 (0.2-0.8); MONOCYTES % 11.2 % (4.4-11.3); NEUTROPHILS # (AUTO) 6.8 (2.1-6.9); NEUTROPHILS % 64.7 % (38.7-80.0); PLATELET COUNT 149 x10e3/uL (140-360); RED BLOOD COUNT 3.37 x10e6/uL (4.3-5.7); RED CELL DISTRIBUTION WIDTH 13.4 % (11.7-14.4)
[2018-12-02 06:31] LABS: ANION GAP 11.8 mmol/L (8-16); BLOOD UREA NITROGEN 9 mg/dL (7-26); BUN/CREATININE RATIO 9 (6-25); CALCIUM 8.5 mg/dL (8.4-10.2); CARBON DIOXIDE 25 mmol/L (22-29); CHLORIDE 104 mmol/L (98-107); CREATININE, SERUM 1.04 mg/dL (0.72-1.25); EST GLOMERULAR FILTRATION RATE > 60 ML/MIN (60-); GLUCOSE 138 mg/dL (74-118); POTASSIUM 4.8 mmol/L (3.5-5.1); SODIUM 136 mmol/L (136-145)
--- NOTE | 2018-12-02 07:57 | NUR ---
Rcvd patient in report this am. Patient is asleep in bed at this time. No s/s of distress noted
--- NOTE | 2018-12-02 08:11 | Progress Note ---
DATE: 12/02/2018 SUBJECTIVE: Status post perineal urethrostomy and cystoscopy and retrograde. The patient is currently asymptomatic. No chest pain. No shortness of breath. Pain is about 5/10 in intensity, had been controlled by the DATA CAPTURE SPECIALIST pump. OBJECTIVE: VITAL SIGNS: Temperature is 99, T-max 99, pulse of 74, respirations of 18, blood pressure is still low at 97/50, pulse oximetry of 97%. HEENT: Normocephalic, atraumatic. Pupils are reactive to light and accommodation. CVS: S1, S2 normal. Regular rate and rhythm. ABDOMEN: Nontender. The stoma was packed and suprapubic catheter in place. EXTREMITIES: No clubbing. No cyanosis. Positive for trace edema. MEDICATIONS: He is on gentamicin. The patient is also on vancomycin. Continue on his medication of simvastatin, latanoprost, metformin, oxybutynin, olmesartan, NOACs as needed and diphenhydramine as needed too. ASSESSMENT: 1. Status post urethrostomy. 2. History of suprapubic catheter. 3. History of urethral strictures and damage. 4. Hypertension, currently running hypertensive. 5. Hyperlipidemia. PLAN: 1. We will go ahead and continue the pain management. The patient's pain is about 5/10. Continue the patient one more day. 2. Also, we will discontinue his olmesartan as his blood pressure is in the low range. Further recommendation and clinical course. Antidiabetic and antihyperlipidemic agents will be continued. Laboratory values are pending today. White count yesterday was 12.97, we will trend it and continue monitoring the patient. Further recommendation, per clinical course. MD SONNY BlackmonJ/MODL /[id number]
[2018-12-02] MEDS: OLMESARTAN 20 MG TAB PO SCH (09:00)
[2018-12-02] MEDS: METFORMIN HCL 500 MG TAB PO SCH ×2 (09:03→17:24)
[2018-12-02] MEDS: ASPIRIN 81 MG CHEW TAB PO SCH (09:03)
[2018-12-02] MEDS: SITAGLIPTIN 100 MG TAB PO SCH ×2 (09:03→17:24)
[2018-12-02] MEDS: OXYBUTYNIN CHLORIDE XL 5 MG TAB PO SCH (09:03)
[2018-12-02] MEDS: PANTOPRAZOLE SOD 40 MG TABEC PO SCH (09:03)
[2018-12-02] MEDS ORDERED: BISACODYL 5 MG TAB EC PO PRN (09:30)
[2018-12-02] MEDS: DOCUSATE SODIUM 100 MG CAP PO SCH (12:31)
[2018-12-02] MEDS: VANCOMYCIN 1GM/NS 250 ML 250 ML IV SCH ×2 (12:31→23:36)
[2018-12-02] MEDS ORDERED: ACETAMINOPHEN/CODEINE 300MG - 30MG TAB PO PRN (14:15)
--- NOTE | 2018-12-02 14:24 | NUR ---
IMM EXPLAINED TO PT, SIGNED BY PT AND PLACED IN CHART COPY TO PT IN CARE TRANSITIONS FOLDER
[2018-12-02] MEDS ORDERED: TRAMADOL HCL 50 MG TAB PO PRN (16:15)
[2018-12-02] MEDS: SIMVASTATIN 20 MG TAB PO SCH (21:00)
[2018-12-02] MEDS: LATANOPROST(OPTH) 2.5 ML BTL OP SCH (21:00)
[2018-12-02] MEDS: METOPROLOL SUCCINATE 50 MG TAB XL PO SCH (21:00)
[2018-12-03 00:20] VITALS: BP 111/58
--- NOTE | 2018-12-03 03:08 | NUR ---
PATIENT REFUSED SCD'S STATED SCD'S BOTHER HIM WHEN HE GETS UP.
--- NOTE | 2018-12-03 04:07 | NUR ---
Dressing done, Patient refused bladder irrigation.
[2018-12-03] MEDS: GENTAMICIN 80MG/NS 100 ML 100 ML IV SCH (05:21)
[2018-12-03 06:20] LABS: BASOPHILS # (AUTO) 0.1 (0.0-0.1); BASOPHILS % 0.6 % (0.0-1.0); EOSINOPHILS # (AUTO) 0.3 (0.0-0.4); EOSINOPHILS % 2.3 % (0.0-6.0); HEMATOCRIT 35.5 % (38.2-49.6); HEMOGLOBIN 12.3 g/dL (14.0-18.0); LYMPHOCYTES # (AUTO) 2.5 (1.0-3.2); LYMPHOCYTES % 20.6 % (18.0-39.1); MEAN CORPUSCULAR HEMOGLOBIN 32.5 pg (28-32); MEAN CORPUSCULAR HGB CONC 34.6 g/dL (31-35); MEAN CORPUSCULAR VOLUME 93.7 fL (81-99); MONOCYTES # (AUTO) 1.2 (0.2-0.8); MONOCYTES % 9.7 % (4.4-11.3); NEUTROPHILS % 66.4 % (38.7-80.0); PLATELET COUNT 175 x10e3/uL (140-360); RED BLOOD COUNT 3.79 x10e6/uL (4.3-5.7); RED CELL DISTRIBUTION WIDTH 13.4 % (11.7-14.4)
[2018-12-03 06:41] LABS: ANION GAP 12.4 mmol/L (8-16); BLOOD UREA NITROGEN 8 mg/dL (7-26); BUN/CREATININE RATIO 9 (6-25); CALCIUM 9.2 mg/dL (8.4-10.2); CARBON DIOXIDE 24 mmol/L (22-29); CHLORIDE 104 mmol/L (98-107); CREATININE, SERUM 0.94 mg/dL (0.72-1.25); EST GLOMERULAR FILTRATION RATE > 60 ML/MIN (60-); GLUCOSE 146 mg/dL (74-118); POTASSIUM 4.4 mmol/L (3.5-5.1); SODIUM 136 mmol/L (136-145)
[2018-12-03] MEDS: SOD CHL 0.45%/POT CHL 20MEQ 1,000 ML IV SCH (06:59)
--- NOTE | 2018-12-03 07:45 | NUR ---
RECEIVED PATIENT AWAKE RESTING IN BED NO S/S OF DISTRESS. BED LOW, WHEELS LOCKED, SIDE RAILS X2. CALL LIGHT IN REACH WILL CONTINUE TO MONITOR PATIENT.
--- NOTE | 2018-12-03 07:45 | Progress Note ---
DATE: 12/03/2018 SUBJECTIVE: This patient is here for status post urethrostomy. No complaints at this point. Pain is controlled. Blood pressure has been monitored. He has been off his Benicar and blood pressure is stable. No chest pain. No shortness of breath. No abdominal pain. OBJECTIVE: VITAL SIGNS: Temperature is 98.0 afebrile, pulse of 83, respirations of 18, blood pressure is 111/58, pulse oximetry of 97%. The patient is on room air. HEENT: Normocephalic and atraumatic. Pupils are reactive to light and accommodation. CVS: S1 and S2 is normal. Regular rate and rhythm. ABDOMEN: Nontender and nondistended. The patient's urethrostomy is covered in bandage. Suprapubic catheter in place. No complaints at this time. EXTREMITIES: Trace edema. MEDICATIONS: Gentamicin and vancomycin. The patient is continued on his home medication which includes metoprolol, simvastatin, latanoprost, metformin, Januvia, Colace, and Dulcolax. The patient is also on Protonix. Currently, Benicar is on hold. LABORATORY VALUES: Today's white count is 12,000, hemoglobin 12.3, and hematocrit 35.5. Chemistries are normal. Potassium 4.4, sodium of 136. Toxicology vancomycin was 10.5. Microbiology, none done. ASSESSMENT: 1. 73-year-old gentleman status post ureterostomy. 2. History of suprapubic catheter. 3. History of urethral strictures and damage. 4. episodes. 5. Hyperlipidemia. PLAN: 1. Continue with pain management. The patient can be discharged home if okay with Dr. Wolf, on a broad-spectrum antibiotic. 2. For his , Olmesartan will be dropped, he can restart it depending on his blood pressure if it ranges about 120/80. 3. Continue on antihyperlipidemic agents and diabetic agents. 4. Follow up with primary care physician and also with Cardiology as an outpatient basis and of course with Dr. Wolf on a later date. The patient also advised not to pick anything above 5 pounds and postsurgical recommendation has been given to the patient. Again, the patient can be discharged home today. MD GENNY Blackmon/FAUSTINAL /[id number]
[2018-12-03 07:49] VITALS: BP 132/76
[2018-12-03] MEDS: METFORMIN HCL 500 MG TAB PO SCH (08:50)
[2018-12-03] MEDS: SITAGLIPTIN 100 MG TAB PO SCH (08:50)
[2018-12-03] MEDS: OXYBUTYNIN CHLORIDE XL 5 MG TAB PO SCH (08:50)
[2018-12-03] MEDS: ASPIRIN 81 MG CHEW TAB PO SCH (08:50)
[2018-12-03] MEDS: PANTOPRAZOLE SOD 40 MG TABEC PO SCH (08:50)
[2018-12-03] MEDS ORDERED: ULTRAM50 MG PO (09:59)
[2018-12-03] MEDS ORDERED: LEVAQUIN500 MG PO (10:00)
[2018-12-03 10:11] VITALS: BP 132/76
[2018-12-03] MEDS ORDERED: ONDANSETRON HCL 4 MG ORAL DISINTEGRATING TAB PO PRN (10:15)
[2018-12-03 12:41] VITALS: BP 128/70
--- NOTE | 2018-12-03 13:00 | NUR ---
REMOVED PATIENTS IV CATHETER TIP INTACT ON REMOVAL AND PRESSURE DRESSING APPLIED.
--- NOTE | 2018-12-03 13:35 | NUR ---
PATIENT DISCHARGED FROM FACILITY. PATIENT GATHERED ALL PERSONAL BELONGINGS, DISCHARGE INSTRUCTIONS, AND FOLLOW UP INFORMATION. LEFT UNIT IN WHEELCHAIR AND WENT HOME VIA PRIVATE AUTO. NO SIGNS OF DISTRESS WHEN LEAVING FACILITY.
--- NOTE | 2019-02-07 04:32 | Discharge Summary ---
HISTORY: The patient came in status post surgery. The patient had a urethrostomy. I was asked to do medical recommendation and also medical management. The patient also had a history of suprapubic catheter and history of urethral strictures and damage to the urethra. The patient had one syncopal episode while in the hospital. The patient also had history of hyperlipidemia. The patient was started on gentamicin and vancomycin status post surgery. At home, the patient was on metoprolol, simvastatin, latanoprost, metformin, Januvia, and Colace. The patient was restarted on those medications. Blood pressure was maintained regularly. Pain management was continued by Dr. Wolf. The patient's blood pressure dropped and olmesartan was dropped permanently. Once the blood pressure was better and stable and hemodynamically the patient was better, the patient was discharged home in a stable condition. FINAL DIAGNOSES: 1. A 73-year-old status post urethrostomy. 2. History of suprapubic catheter. 3. History of urethral strictures. 4. Hypotensive episode. 5. Hyperlipidemia. Medicines as per reconciliation sheet. Look in the chart for further medical information. MD GENNY Blackmon/ELHAM /[id number]
--- NOTE | 2019-02-23 04:51 | Operative Report ---
DATE OF PROCEDURE: 11/30/2018 SURGEON: Michele Wolf MD PREOPERATIVE DIAGNOSIS: 1. Suprapubic cystostomy. 2. Severe urethral stricture disease. 3. Urinary tract infections. 4. Urinary retention. POSTOPERATIVE DIAGNOSES: 1. Suprapubic cystostomy. 2. Severe urethral stricture disease. 3. Urinary tract infections. 4. Urinary retention. OPERATION PERFORMED: Note, these were all staged procedures as part of multistaged and multi-step process in managing the patient's current urinary status. 1. Change of cystostomy tube. 2. Injection procedure for cystography and retrograde urethrocystography. 3. Perineal urethrostomy (surgery performed for the severe urethral stricture disease). 4. Cystourethroscopy with bilateral ureteral catheterization and retrograde ureteropyelography (separate procedure performed to evaluate the upper tract in light of urinary tract infections). 5. Interpretation of retrograde ureteropyelography. SPINNING FRAME TENDER: Jessica Wolf MD. ANESTHESIA: General. COMPLICATIONS: None. CLINICAL SUMMARY: Jeremy Scott is a 73-year-old male with severe urethral stricture disease. He was weighing a recommendation for urethral reconstruction with buccal mucosal graft, he desires a small left complex operation and elected to proceed with surgery as planned. He is aware of the risks of bleeding, infection, injury to adjacent structures, need for additional procedures and he elected to proceed. OPERATIVE PROCEDURE IN DETAIL: Informed consent was verified. Jonh Scott was properly identified, taken to the operating room, placed on the operating table in supine position. Anesthesia was uneventfully begun. The patient's suprapubic cystostomy was removed and the patient's abdomen, genitalia and perineum were prepared and draped in usual sterile fashion. The cystostomy tube was changed to a larger size. A retrograde urethrogram was then performed through the urethra. We then passed a flexible cystoscope into the suprapubic cystostomy site, guided it into the bladder, where panendoscopy revealed no tumors, no stones, no suspicious lesions. We then performed an antegrade cystourethroscopy as we entered the prostate bed, we went through the prostate bed, not the external urinary sphincter into the most proximal urethra. Contrast was injected. The cystoscope was withdrawn and new and larger cystostomy tube was then placed. The incision was made in the perineum, carried through all layers of the perineum until we identified the bulbar urethra. We then isolated the bulbar urethra noted where the severe scarring was. We divided the urethra just proximal to the severe scar. There was ample urethra distal to the external urinary sphincter and this urethra appeared healthy. We then fashioned a perineal urethrostomy by approximating the mucosa of the urethra to the perineum utilizing interrupted absorbable suture. Once all this was completed, the incision was closed with absorbable suture as well. The cystoscope sheath with the visual obturator in place was atraumatically inserted. It was guided through the normal sphincteric region into the patient's prostate bed, which was significant for bilobar prostatic hypertrophy with visual obstruction of the distal portion of the prostatic urethra. The more proximal portion of the prostatic urethra did show evidence of prior resection. Panendoscopy of the urinary bladder from below in retrograde fashion revealed trabeculations and cellules, but no true diverticula. An 8-Turkmen catheter was used to cannulate each ureter and retrograde ureteropyelograms were performed. Interpretation of cystography: Urethrocystography was performed antegrade and retrograde. It revealed a segment of severe urethral stricture that we have identified. There was an easily distensible and long segment of urethra between the external urinary sphincter and the severe stricture noted in the urethra. Interpretation of retrograde ureteropyelography contrast was instilled in retrograde fashion bilaterally. There were no tumors, no stones, and no diverticula. Unobstructed drainage was observed bilaterally fluoroscopically. The cystoscope was withdrawn. A Cavazos catheter was placed. Ointment and Xeroform and additional dressing were placed to the perineal urethrostomy. Dressing was placed in the cystostomy site. The patient was then uneventfully reversed from anesthesia and taken to the recovery room in stable condition. There were no complications during the procedure well. The patient tolerated the procedure well. Sponge, needle, and instrument counts were of course correct x2 at the end of the case. Estimated blood loss was minimal. We will proceed with routine postoperative care and lifelong urological followup. Michele Wolf MD [place]/MODL /[id number] cc: Ryan Khan MD
== END 2018-12-03 13:35 | disposition home or self-care (01) | DRG 663 ==
LOC: OR 10:44 → PACU V 15:21 → MED/SURG 15:47
PROVIDERS: ADMIT Family Medicine; ATTEND Family Medicine
PROC: 0T788ZZ Dilation of Bilateral Ureters, Via Natural or Artificial Opening Endoscopic (ICD-10-PCS; 2018-11-30)
PROC: 0T2BX0Z Change Drainage Device in Bladder, External Approach (ICD-10-PCS; 2018-11-30)
PROC: 0TQD0ZZ Repair Urethra, Open Approach (ICD-10-PCS; principal; 2018-11-30 13:00)
PROC: BT14ZZZ Fluoroscopy of Kidneys, Ureters and Bladder (ICD-10-PCS; 2018-11-30 13:00)
DX: N35.919 Unspecified urethral stricture, male, unspecified site (principal); E87.1 Hypo-osmolality and hyponatremia; N17.9 Acute kidney failure, unspecified; N13.8 Other obstructive and reflux uropathy; N32.89 Other specified disorders of bladder; K20.8 Other esophagitis; K22.70 Barrett's esophagus without dysplasia; E11.9 Type 2 diabetes mellitus without complications; I10 Essential (primary) hypertension; N40.1 Benign prostatic hyperplasia with lower urinary tract symptoms; R55 Syncope and collapse; I95.9 Hypotension, unspecified; E78.5 Hyperlipidemia, unspecified
CPT/HCPCS: 36415; 51700; 71046; 74420; 74450; 80048; 80202; 82948; 85025; C1758; J1580; J2001; J2250; J2270; J2405; J2543; J2550; J3010; J3370

== ENCOUNTER 2024-01-21 13:31 | Emergency (ER) | payer MEDICARE, OTHER ==
[~2024-01-21] VITALS: Ht 193 cm; Wt 95.3 kg
[~2024-01-21 13:31] MED LIST changes: +GLIMEPIRIDE2 MG PO; +LEVAQUIN500 MG PO; +POTASSIUM GLUCO99 MG PO; +ULTRAM50 MG PO
[2024-01-21 13:42] VITALS: TEMP 97.9
[2024-01-21 14:21] LABS: BASOPHILS % 0.3 % (0.0-1.0); EOSINOPHILS # (AUTO) 0.1 (0.0-0.4); EOSINOPHILS % 1.4 % (0.0-6.0); HEMATOCRIT 38.2 % (38.2-49.6); HEMOGLOBIN 13.2 g/dL (14.0-18.0); LYMPHOCYTES # (AUTO) 1.6 (1.0-3.2); LYMPHOCYTES % 17.9 % (18.0-39.1); MEAN CORPUSCULAR HEMOGLOBIN 34.4 pg (28-32); MEAN CORPUSCULAR HGB CONC 34.6 g/dL (31-35); MEAN CORPUSCULAR VOLUME 99.5 fL (81-99); MONOCYTES % 11.3 % (4.4-11.3); NEUTROPHILS # (AUTO) 6.2 (2.1-6.9); NEUTROPHILS % 68.7 % (38.7-80.0); PLATELET COUNT 184 x10e3/uL (140-360); RED BLOOD COUNT 3.84 x10e6/uL (4.3-5.7); RED CELL DISTRIBUTION WIDTH 13.4 % (11.7-14.4); WHITE BLOOD COUNT 9.09 x10e3/uL (4.8-10.8)
[2024-01-21 14:33] LABS: ALBUMIN 4.1 g/dL (3.5-5.0); ALBUMIN/GLOBULIN RATIO 1.5 (0.8-2.0); ANION GAP 16.4 mmol/L (8-16); BILIRUBIN,TOTAL 0.9 mg/dL (0.2-1.2); CALCIUM 9.6 mg/dL (8.4-10.2); CREATININE, SERUM 1.56 mg/dL (0.72-1.25); POTASSIUM 4.4 mmol/L (3.5-5.1); TOTAL PROTEIN 6.9 g/dL (6.5-8.1)
[2024-01-21 16:26] LABS: BILIRUBIN,URINE NEGATIVE (NEGATIVE); CLARITY,URINE CLEAR (CLEAR); COLOR,URINE YELLOW (YELLOW); GLUCOSE, URINE 1+ (NEGATIVE); KETONES,URINE 1+ (NEGATIVE); LEUKOCYTE ESTERASE ,URINE NEGATIVE (NEGATIVE); NITRITE,URINE NEGATIVE (NEGATIVE); PH,URINE 5.5 (5 - 7); PROTEIN,URINE DIPSTICK NEGATIVE (NEGATIVE); URINE UROBILINOGEN 0.2 mg/dL (0.2 - 1)
[2024-01-21 16:38] LABS: BACTERIA,URINE FEW /HPF; EPITHELIAL CELLS,URINE FEW /LPF; MUCUS,URINE MANY (RARE); TRANSITIONAL EPI CELLS,URINE FEW
[2024-01-21] MEDS ORDERED: SODIUM CHLORIDE 0.9% 1000ML 1,000 ML ONE (16:54)
[2024-01-21] MEDS: SODIUM CHLORIDE 0.9% 1000ML 1,000 ML IV ONE (17:34)
[2024-01-21 17:44] VITALS: PULSE 61; RESP 16
[2024-01-21] MEDS ORDERED: ONDANSETRON ODT4 MG PO (17:52)
[2024-01-21 18:44] VITALS: BP 160/76; PULSE 61; RESP 17; O2SAT 100
== END 2024-01-21 18:28 | disposition home or self-care (01) ==
LOC: ER 13:39
DX: H81.09 Meniere's disease, unspecified ear (principal); N17.9 Acute kidney failure, unspecified
CPT/HCPCS: 36415; 80053; 81001; 83690; 85025; 93005; 99284; J7030